=== PATIENT | female | born 1975 | race Caucasian/White ===

== ENCOUNTER → 2019-07-10 09:54 | Outpatient (BNVA) | payer MEDICARE, SELFPAY | PROVIDERS: Family Provider Nurse Practitioner Family; PCP Nurse Practitioner Family; Visit Provider Nurse Practitioner | DX: J22 Unspecified acute lower respiratory infection (principal) | CPT/HCPCS: 71046 ==

== ENCOUNTER → 2019-08-09 10:51 | Outpatient (BNVA) | payer MEDICARE, SELFPAY | PROVIDERS: Family Provider Nurse Practitioner Family; PCP Nurse Practitioner Family; Visit Provider Nurse Practitioner | DX: F41.1 Generalized anxiety disorder (principal); F41.0 Panic disorder [episodic paroxysmal anxiety]; F43.12 Post-traumatic stress disorder, chronic | CPT/HCPCS: 99214 ==

== ENCOUNTER → 2019-08-28 10:00 | Outpatient (BNVA) | payer MEDICARE, SELFPAY | PROVIDERS: Family Provider Nurse Practitioner Family; PCP Nurse Practitioner Family; Visit Provider Obstetrics & Gynecology | DX: Z79.899 Other long term (current) drug therapy (principal); N83.209 Unspecified ovarian cyst, unspecified side | CPT/HCPCS: 76830; 80053; 85025 ==

== ENCOUNTER → 2019-08-29 11:33 | Outpatient (BNVA) | payer MEDICARE, SELFPAY | PROVIDERS: Family Provider Nurse Practitioner Family; PCP Nurse Practitioner Family; Visit Provider Nurse Practitioner Family | DX: R20.2 Paresthesia of skin (principal); E53.8 Deficiency of other specified B group vitamins; D64.9 Anemia, unspecified; E55.9 Vitamin D deficiency, unspecified; E87.6 Hypokalemia | CPT/HCPCS: 82607; 83735 ==

== ENCOUNTER 2019-08-31 11:14 | Emergency (ER) | payer MEDICARE, SELFPAY ==
[2019-08-31 11:35] VITALS: BP 114/68; PULSE 82; RESP 16; TEMP 36.6; O2SAT 97; BMI 23.8
--- NOTE | 2019-08-31 11:44 | ED_ITS ---
Entered by Arleth Ball, acting as scribe for Pelon Childress DO Documented by User: Tara Leija DO 08/31/19 14:05 HPI - Abdominal Pain General: Chief Complaint: Abdominal Pain Stated Complaint: sent by dr. Marques Seen by Provider: 08/31/19 11:43 PFS ED PFSH: Medical History Arthritis of both knees Bilateral ovarian cysts Cervical disc disorder with myelopathy of mid-cervical region COPD (chronic obstructive pulmonary disease) Essential hypertension, benign Fibromyalgia Generalized anxiety disorder Idiopathic thrombocytopenia Panic disorder [episodic paroxysmal anxiety] Post-traumatic stress disorder, chronic Restless leg Sjogren's syndrome with lung involvement Thoracic degenerative disc disease Vitamin B12 deficiency Vitamin D deficiency Social History Smoking and tobacco status: current every day smoker cigarettes Packs smoked per day: 1 Quit status (tobacco): not considering quitting Second hand smoke exposure: Yes Smoking risk assessment/counseling performed?: Yes Tobacco counseling given: counseling >3 minutes Alcohol intake: never Desire information about alcohol rehabilitation?: No Counseling given: No Desire information about substance/drug rehabilitation?: No Counseling given: No Course Vital Signs: Vital signs: Vital Signs Temperature 97.9 F 08/31/19 11:35 Pulse Rate 84 08/31/19 14:27 Respiratory Rate 16 08/31/19 14:27 Blood Pressure 132/77 08/31/19 14:27 Pulse Oximetry 98 08/31/19 14:27 MDM - Abdominal Pain MDM Narrative: Medical decision making narrative: 1200pm: I accepted this pt from Dr Childress, pt has a low mag and K, which are being replaced here. I will have her take some magnesium supplement and have her continue her potassium supplement. She pam lneed her labs drawn in 1 week. Pt feels better and is tolerating pos well. Medical Records: Attestation: I reviewed the patient's medical records. Lab Data: Attestation: I reviewed the patient's lab results. Labs: Lab Results 08/31/19 08/31/19 08/31/19 Range/Units 11:55 12:03 12:03 WBC 10.1 H (4.0-10.0) 10^3/ uL RBC 4.08 L (4.1-5.3) 10^6/u L Hgb 12.4 (11.5-15.3) g/dL Hct 38.2 (37.0-47.0) % MCV 93.6 (81-99) fL MCH 30.4 (28.0-34.0) pg MCHC 32.5 (30.0-36.0) g/dL RDW 14.6 (12.1-15.1) % Plt Count 375 (130-400) 10^3/c mm MPV 10.6 H (7.4-10.4) fL Neut % (Auto) 32.0 % Lymph % (Auto) 54.1 % [place] % (Auto) 9.2 % Eos % (Auto) 3.5 % Baso % (Auto) 0.9 % Neut # (Auto) 3.2 (1.8-7.7) 10^3/u L Lymph # (Auto) 5.5 H (0.8-4.8) 10^3/u L [place] # (Auto) 0.9 (0.2-0.9) 10^3/u L Eos # (Auto) 0.4 (0.0-0.8) 10^3/u L Baso # (Auto) 0.1 (0.0-0.1) 10^3/u L Nucleated RBC % (a uto) 0 % Nucleated RBCs # 0.0 /100WBC Sodium 140 (136-145) mmol/L Potassium 3.4 L (3.5-5.1) mmol/L Chloride 101 (98-107) mmol/L Carbon Dioxide 25 (22-29) mmol/L Anion Gap 17.4 (5-19) BUN 8 (6-20) mg/dL Creatinine 0.9 (0.5-0.9) mg/dL GFR Calculation 68.7 L (90-130) mL/min Glucose 80 (65-115) mg/dL Calcium 9.0 (8.5-10.5) mg/dL Magnesium 0.9 L (1.7-2.3) mg/dL Total Bilirubin 0.3 (0.15-1.2) mg/dL AST 16 (0-32) U/L ALT 19 (0-33) U/L Alkaline Phosphata se 74 (35-105) IU/L Total Protein 6.8 (6.6-8.7) g/dL Albumin 4.3 (3.5-5.2) g/dL Globulin 2.5 (1.3-4.6) g/dL Lipase 39 (13-60) U/L Urine Color Straw (Yellow) Urine Appearance Clear (CLEAR) Urine pH 5.0 (5-7) Ur Specific Gravit y 1.005 (1.005-1.030) Urine Protein Neg (Negative) Urine Glucose (UA) Norm (Normal) Urine Ketones Negative (Negative) Urine Blood Neg (Negative) Urine Nitrate Negative (Negative) Urine Bilirubin Neg (NEGATIVE) Urine Urobilinogen Norm (Negative) mg/dL Ur Leukocyte Nadia ase Negative (Negative) Discharge Plan Discharge Patient Disposition: Home, Self-Care Clinical Impression: Hypomagnesemia, Acute hypokalemia, Diarrhea with dehydration Condition: Stable Prescriptions: No Action Narcan 4 mg/actuation spray,non-aerosol INTRANASAL RF: 0 albuterol sulfate 90 mcg/actuation HFA aerosol inhaler INHALATION RF: 0 Flovent HFA 110 mcg/actuation HFA aerosol inhaler INHALATION RF: 0 cevimeline 30 mg capsule 30 mg PO RF: 0 leflunomide 20 mg tablet PO DAILY RF: 0 norethindrone (contraceptive) 0.35 mg tablet PO DAILY RF: 0 pantoprazole 40 mg tablet,delayed release (DR/EC) PO DAILY RF: 0 pregabalin 150 mg capsule 150 mg PO DAILY RF: 0 pregabalin 200 mg capsule 200 mg PO .at bed RF: 0 lidocaine HCl [Xylocaine] 10 mg/mL (1 %) solution 2 ml IM ONCE Qty: 1 RF: 0 ceftriaxone 1 gram recon soln 1 gm IM ONCE Qty: 1 RF: 0 dexamethasone sodium phosphate 10 mg/mL solution 10 mg IM ONCE Qty: 1 RF: 0 betamethasone dipropionate 0.05 % cream 1 applic TOPICAL BID PRN (Reason: skin irritation) 30 Days Qty: 15 RF: 0 prazosin 1 mg capsule 1 mg PO .HS Qty: 30 RF: 1 clonazepam 0.5 mg tablet 0.5 mg PO TID PRN (Reason: anxiety) Qty: 90 RF: 1 potassium chloride 20 mEq tablet extended release 20 meq PO BID 30 Days Qty: 60 RF: 0 folic acid 1 mg tablet 1 mg PO DAILY Qty: 1 RF: 1 cevimeline [Evoxac] 30 mg capsule 1 cap PO TID Qty: 90 RF: 5 hydroxychloroquine 200 mg tablet 200 mg PO BID Qty: 60 RF: 5 ropinirole 0.25 mg tablet 0.75 mg PO .at bedtime Qty: 90 RF: 2 cyanocobalamin (vitamin B-12) 1,000 mcg/mL solution 1,000 mcg IM .weekly Qty: 4 RF: 2 Discharge Orders: Discharge Order (Routine); Ordered 08/31/19 Ordered By: Tara Leija Referrals: Chilo Ovalles, PROFESSOR OF ENGLISH [Primary Care Provider] - Discharge Diet: Advance as tolerated and Soft Mechanical Discharge Activity: Resume usual activity Patient Instructions: Diarrhea - Adult, Hypokalemia (ED), Hypomagnesemia (ED) Activity Restrictions/Additional Instructions: You need to get a CMP and Magnesium and Phosphorous level drawn in 1 week, results to your pcp. You should return if worse, any problem, not getting better. Drink plenty of fluids Discharge Date/Time: 08/31/19 14:28 Sign Out Sign Out Data: Patient Sign Out occurred on 08/31/19 at 12:13. Patient's care was discussed, and care was transferred from Pelon Childress DO to Tara Davis DO. Sign Out Comment: Awaiting labs Last updated by Pelon Childress DO at 08/31/19 12:07 Coding Level of Care Code ED Telephone Surveyor for Chg Fwd Exam Comprehensive Documented by User: Pelon Childress DO 09/01/19 06:02 HPI - Abdominal Pain General: Chief Complaint: Abdominal Pain Stated Complaint: sent by dr. Marques Seen by Provider: 08/31/19 11:43 Source: patient and RN notes reviewed Mode of arrival: ambulatory Limitations: no limitations History of Present Illness: HPI narrative: 44 yo female presents to ED with c omplaints of abdominal pain, nausea, vomiting and diarrhea (watery). She said this began yesterday. She said her PCP (JIM Ovalles) sent her to the ER due to her potassium and magnesium being low. She denies fever. She has been on levaquin due to a cough; the cough is improving. She said she went to doc yesterday because her face was tingly. MD elicited complaint: abdominal pain Pertinent past history: other (low magnesium, low potassium) Onset (ago): day(s) (1) Pain Consistency: intermittent Location: Diffuse Severity: mild Quality: cramping Radiation: none Migration to: no migration Exacerbating factors: bowel movement and vomiting Relieving factors: nothing Context: recent antibiotic use Associated Symptoms: Reports change in bowel habits and GI cramping; Denies chills, dysuria, fever(s), hematuria and syncope Review of Systems Const: Denies: fever, chills, body aches, fatigue, malaise or night sweats Eyes: Denies: change in vision or blurry vision ENMT: Denies: throat pain, oral sores/lesions, dental pain, nasal discharge or nasal congestion Card: Denies: chest pain, palpitations, irregular heart rhythm, edema, syncope, shortness of breath on exertion, shortness of breath when lying down or leg pain with exertion Resp: Denies: shortness of breath, productive cough, non-productive cough or wheezing GI: Reports: cramping and change in bowel habits : Denies: flank pain, painful urination, urinary frequency, urinary urgency, urinary incontinence or blood in urine Musc: Denies: neck pain, back pain, extremity pain, extremity swelling, joint pain or joint swelling Skin/Breast: Denies: rash, itching or redness Neuro: Denies: headache, numbness in extremities, weakness in extremities, changes in sensation, lack of coordination, difficulty walking, frequent falls, dizziness, vertigo or confusion Psych: Denies: anxiety, depression, loss of interest, visual hallucinations, auditory hallucinations, suicidal ideation or homicidal ideation Endo: Denies: excessive urination, excessive thirst, tired all the time or cold intolerance Víctor/Lymph: Denies: easy bruising, easy bleeding, petechiae, enlarged lymph nodes or tender lymph nodes PFSH ED PFSH: Medical History Arthritis of both knees Bilateral ovarian cysts Cervical disc disorder with myelopathy of mid-cervical region COPD (chronic obstructive pulmonary disease) Essential hypertension, benign Fibromyalgia Generalized anxiety disorder Idiopathic thrombocytopenia Panic disorder [episodic paroxysmal anxiety] Post-traumatic stress disorder, chronic Restless leg Sjogren's syndrome with lung involvement Thoracic degenerative disc disease Vitamin B12 deficiency Vitamin D deficiency Social History Smoking and tobacco status: current every day smoker cigarettes Packs smoked per day: 1 Quit status (tobacco): not considering quitting Second hand smoke exposure: Yes Smoking risk assessment/counseling performed?: Yes Tobacco counseling given: counseling >3 minutes Alcohol intake: never Desire information about alcohol rehabilitation?: No Counseling given: No Desire information about substance/drug rehabilitation?: No Counseling given: No Physical Exam Const: COMMON NORMALS: average body habitus, oriented x3 and alert GENERAL APPEARANCE: cooperative, comfortable, well kempt and well developed NUTRITIONAL APPEARANCE: obese ORIENTATION/CONSCIOUSNESS: Yes awake, Yes oriented to person and Yes oriented to place HENMT: COMMON NORMALS: normocephalic, head/scalp atraumatic, EAC's normal, TM's normal bilaterally, external nose normal, moist oral mucous membranes and oropharynx normal HEAD & SCALP: normocephalic and atraumatic NOSE: external nose normal EXTERNAL AUDITORY CANAL: EAC's normal TYMPANIC MEMBRANE: TM's normal bilaterally MOUTH: oral and palatal mucosa normal, lip normal and tongue normal THROAT: posterior oropharynx normal and tonsils normal Eye: COMMON NORMALS: PERRL, EOMs intact bilaterally, conjunctivae normal and no scleral icterus CONJUNCTIVA: Yes conjunctivae normal PUPIL: Yes PERRL Neck/C-Spine: COMMON NORMALS: full ROM, no lymphadenopathy, supple, no meningeal signs and thyroid normal THYROID: thyroid normal and asymmetrical Lymph: LYMPHATIC: no lymphadenopathy noted Resp: COMMON NORMALS: normal respiratory effort, no retractions, no use of accessory muscles and clear to auscultation bilaterally AUSCULTATION: clear to auscultation bilaterally Cardio: COMMON NORMALS: regular rate and regular rhythm RATE: regular rate RHYTHM: regular rhythm HEART SOUNDS: no murmurs GI: COMMON NORMALS: normal to inspection, nondistended, normoactive bowel sounds, soft to palpation and no hepatosplenomegaly PALPATION: Yes soft and Yes no hepatosplenomegaly : COMMON NORMALS: Yes no CVA tenderness BLADDER/KIDNEY EXAM: Yes no CVA tenderness Back/Pelvis: COMMON NORMALS: no CVA tenderness LUMBAR SPINE/LOWER BACK: Yes normal to inspection Extremity: COMMON NORMALS: no clubbing, cyanosis or edema, no calf tenderness and no pedal edema Neuro: COMMON NORMALS: oriented x3 SENSORIUM/ORIENTATION: Yes alert, Yes oriented to person and Yes oriented to place MENINGEAL SIGNS: Yes no meningeal signs Psych: APPEARANCE: Yes well kempt Skin: COMMON NORMALS: no rashes or lesions noted and skin turgor normal GENERAL SKIN EXAM: no rashes or lesions noted and turgor normal Course ED course: care transferred to Dr. Leija at change of shift. Vital Signs: Vital signs: Vital Signs Temperature 97.9 F 08/31/19 11:35 Pulse Rate 84 08/31/19 14:27 Respiratory Rate 16 08/31/19 14:27 Blood Pressure 132/77 08/31/19 14:27 Pulse Oximetry 98 08/31/19 14:27 MDM - Abdominal Pain Lab Data: Attestation: I reviewed the patient's lab results. Labs: Lab Results 08/31/19 08/31/19 08/31/19 Range/Units 11:55 12:03 12:03 WBC 10.1 H (4.0-10.0) 10^3/ uL RBC 4.08 L (4.1-5.3) 10^6/u L Hgb 12.4 (11.5-15.3) g/dL Hct 38.2 (37.0-47.0) % MCV 93.6 (81-99) fL MCH 30.4 (28.0-34.0) pg MCHC 32.5 (30.0-36.0) g/dL RDW 14.6 (12.1-15.1) % Plt Count 375 (130-400) 10^3/c mm MPV 10.6 H (7.4-10.4) fL Neut % (Auto) 32.0 % Lymph % (Auto) 54.1 % [place] % (Auto) 9.2 % Eos % (Auto) 3.5 % Baso % (Auto) 0.9 % Neut # (Auto) 3.2 (1.8-7.7) 10^3/u L Lymph # (Auto) 5.5 H (0.8-4.8) 10^3/u L [place] # (Auto) 0.9 (0.2-0.9) 10^3/u L Eos # (Auto) 0.4 (0.0-0.8) 10^3/u L Baso # (Auto) 0.1 (0.0-0.1) 10^3/u L Nucleated RBC % (a uto) 0 % Nucleated RBCs # 0.0 /100WBC Sodium 140 (136-145) mmol/L Potassium 3.4 L (3.5-5.1) mmol/L Chloride 101 (98-107) mmol/L Carbon Dioxide 25 (22-29) mmol/L Anion Gap 17.4 (5-19) BUN 8 (6-20) mg/dL Creatinine 0.9 (0.5-0.9) mg/dL GFR Calculation 68.7 L (90-130) mL/min Glucose 80 (65-115) mg/dL Calcium 9.0 (8.5-10.5) mg/dL Magnesium 0.9 L (1.7-2.3) mg/dL Total Bilirubin 0.3 (0.15-1.2) mg/dL AST 16 (0-32) U/L ALT 19 (0-33) U/L Alkaline Phosphata se 74 (35-105) IU/L Total Protein 6.8 (6.6-8.7) g/dL Albumin 4.3 (3.5-5.2) g/dL Globulin 2.5 (1.3-4.6) g/dL Lipase 39 (13-60) U/L Urine Color Straw (Yellow) Urine Appearance Clear (CLEAR) Urine pH 5.0 (5-7) Ur Specific Gravit y 1.005 (1.005-1.030) Urine Protein Neg (Negative) Urine Glucose (UA) Norm (Normal) Urine Ketones Negative (Negative) Urine Blood Neg (Negative) Urine Nitrate Negative (Negative) Urine Bilirubin Neg (NEGATIVE) Urine Urobilinogen Norm (Negative) mg/dL Ur Leukocyte Nadia ase Negative (Negative) Discharge Plan Discharge Patient Disposition: Home, Self-Care Clinical Impression: Hypomagnesemia, Acute hypokalemia, Diarrhea with dehydration Condition: Stable Prescriptions: No Action Narcan 4 mg/actuation spray,non-aerosol INTRANASAL RF: 0 albuterol sulfate 90 mcg/actuation HFA aerosol inhaler INHALATION RF: 0 Flovent HFA 110 mcg/actuation HFA aerosol inhaler INHALATION RF: 0 cevimeline 30 mg capsule 30 mg PO RF: 0 leflunomide 20 mg tablet PO DAILY RF: 0 norethindrone (contraceptive) 0.35 mg tablet PO DAILY RF: 0 pantoprazole 40 mg tablet,delayed release (DR/EC) PO DAILY RF: 0 pregabalin 150 mg capsule 150 mg PO DAILY RF: 0 pregabalin 200 mg capsule 200 mg PO .at bed RF: 0 lidocaine HCl [Xylocaine] 10 mg/mL (1 %) solution 2 ml IM ONCE Qty: 1 RF: 0 ceftriaxone 1 gram recon soln 1 gm IM ONCE Qty: 1 RF: 0 dexamethasone sodium phosphate 10 mg/mL solution 10 mg IM ONCE Qty: 1 RF: 0 betamethasone dipropionate 0.05 % cream 1 applic TOPICAL BID PRN (Reason: skin irritation) 30 Days Qty: 15 RF: 0 prazosin 1 mg capsule 1 mg PO .HS Qty: 30 RF: 1 clonazepam 0.5 mg tablet 0.5 mg PO TID PRN (Reason: anxiety) Qty: 90 RF: 1 potassium chloride 20 mEq tablet extended release 20 meq PO BID 30 Days Qty: 60 RF: 0 folic acid 1 mg tablet 1 mg PO DAILY Qty: 1 RF: 1 cevimeline [Evoxac] 30 mg capsule 1 cap PO TID Qty: 90 RF: 5 hydroxychloroquine 200 mg tablet 200 mg PO BID Qty: 60 RF: 5 ropinirole 0.25 mg tablet 0.75 mg PO .at bedtime Qty: 90 RF: 2 cyanocobalamin (vitamin B-12) 1,000 mcg/mL solution 1,000 mcg IM .weekly Qty: 4 RF: 2 Discharge Orders: Discharge Order (Routine); Ordered 08/31/19 Ordered By: Tara Leija Referrals: Chilo Ovalles, PROFESSOR OF ENGLISH [Primary Care Provider] - Discharge Diet: Advance as tolerated and Soft Mechanical Discharge Activity: Resume usual activity Patient Instructions: Diarrhea - Adult, Hypokalemia (ED), Hypomagnesemia (ED) Activity Restrictions/Additional Instructions: You need to get a CMP and Magnesium and Phosphorous level drawn in 1 week, results to your pcp. You should return if worse, any problem, not getting better. Drink plenty of fluids Discharge Date/Time: 08/31/19 14:28 Sign Out Sign Out Data: Patient Sign Out occurred on 08/31/19 at 12:13. Patient's care was discussed, a nd care was transferred from Pelon Childress DO to Tara Davis DO. Sign Out Comment: Awaiting labs Last updated by Pelon Childress DO at 08/31/19 12:07 Coding Level of Care Code ED Telephone Surveyor for Chg Fwd Exam Comprehensive The documentation recorded by the Quinn hardin Valerie R, accurately reflects the service I personally performed and the decisions made by me, Pelon Childrses DO Aug 31, 2019 11:14
[2019-08-31] MEDS: magnesium oxide 400 mg tablet 800 MG PO (12:00)
[2019-08-31] MEDS: sodium chloride 0.9% 1,000 ML 999 ML IV (12:00)
[2019-08-31 12:05] LABS: Add Urine Microscopic? NO
[2019-08-31] MEDS: potassium chloride oral liq 20 mEq/15 mL UDC 60 MEQ PO (12:08)
[2019-08-31 12:10] LABS: Basophils # 0.1 10^3/uL (0.0-0.1); Basophils % 0.9 %; Eosinophils # 0.4 10^3/uL (0.0-0.8); Eosinophils % 3.5 %; Hematocrit 38.2 % (37.0-47.0); Hemoglobin 12.4 g/dL (11.5-15.3); Lymphocytes # 5.5 10^3/uL (0.8-4.8); Lymphocytes % 54.1 %; Mean Corpuscular HGB Conc 32.5 g/dL (30.0-36.0); Mean Corpuscular Hemoglobin 30.4 pg (28.0-34.0); Mean Corpuscular Volume 93.6 fL (81-99); Mean Platelet Volume 10.6 fL (7.4-10.4); Monocytes # 0.9 10^3/uL (0.2-0.9); Monocytes % 9.2 %; Neutrophils # 3.2 10^3/uL (1.8-7.7); Nucleated Red Blood Cells % 0 %; Platelet Count 375 10^3/cmm (130-400); Red Blood Count 4.08 10^6/uL (4.1-5.3); Red Cell Distribution Width 14.6 % (12.1-15.1); White Blood Count 10.1 10^3/uL (4.0-10.0)
[2019-08-31 12:22] LABS: Blood Urine Neg (Negative); Glucose Urine UA Norm (Normal); Ketones Urine Negative (Negative); Nitrate Urine Negative (Negative); Protein Urine Neg (Negative); Specific Gravity, Urine 1.005 (1.005-1.030); Urine Appearance Clear (CLEAR); Urine Color Straw (Yellow)
[2019-08-31 12:23] LABS: Bilirubin Urine Neg (NEGATIVE); Leukocyte Esterase Urine Negative (Negative); Urobilinogen Urine Norm (Negative)
[2019-08-31 12:25] LABS: Alanine Aminotransferase 19 U/L (0-33); Albumin Level 4.3 g/dL (3.5-5.2); Alkaline Phosphatase 74 IU/L (35-105); Anion Gap 17.4 (5-19); Aspartate Amino Transferase 16 U/L (0-32); Blood Urea Nitrogen 8 mg/dL (6-20); Carbon Dioxide 25 mmol/L (22-29); Chloride 101 mmol/L (98-107); Globulin 2.5 g/dL (1.3-4.6); Glomerular Filtration Rate 68.7 mL/min (90-130); Glucose 80 mg/dL (65-115); Lipase 39 U/L (13-60); Potassium 3.4 mmol/L (3.5-5.1); Sodium 140 mmol/L (136-145); Total Bilirubin 0.3 mg/dL (0.15-1.2); Total Protein 6.8 g/dL (6.6-8.7)
[2019-08-31 12:33] LABS: Magnesium 0.9 mg/dL (1.7-2.3)
[2019-08-31 12:35] LABS: Slide Review Slide Review Perform
[2019-08-31 14:27] VITALS: BP 132/77; PULSE 84; RESP 16; O2SAT 98
== END 2019-08-31 14:28 | disposition home or self-care (01) ==
PROVIDERS: Family Medicine; Emergency Provider Emergency Medicine; Family Provider Nurse Practitioner Family; PCP Nurse Practitioner Family
DX: E83.42 Hypomagnesemia (principal); E87.6 Hypokalemia; R19.7 Diarrhea, unspecified; E86.0 Dehydration; J44.9 Chronic obstructive pulmonary disease, unspecified; I10 Essential (primary) hypertension; M79.7 Fibromyalgia; F43.12 Post-traumatic stress disorder, chronic; M35.00 Sjogren syndrome, unspecified; F17.210 Nicotine dependence, cigarettes, uncomplicated
CPT/HCPCS: 12345; 36415; 80053; 81003; 83690; 83735; 85025; 96360; 99282; 99283; A9270; J7030

== ENCOUNTER → 2019-09-03 12:09 | Outpatient (BNVA) | payer MEDICARE, SELFPAY | PROVIDERS: Family Provider Nurse Practitioner Family; PCP Nurse Practitioner Family; Visit Provider Nurse Practitioner Family | DX: D64.9 Anemia, unspecified (principal); E87.6 Hypokalemia; E83.42 Hypomagnesemia | CPT/HCPCS: 80053; 82306; 82746; 83735; 85025 ==

== ENCOUNTER → 2019-09-06 11:59 | Outpatient (BNVA) | payer MEDICARE, SELFPAY | PROVIDERS: Family Provider Nurse Practitioner Family; PCP Nurse Practitioner Family; Visit Provider Nurse Practitioner Family | DX: E83.42 Hypomagnesemia (principal); E87.6 Hypokalemia | CPT/HCPCS: 80053; 83735 ==

== ENCOUNTER → 2019-09-11 12:10 | Outpatient (BNVA) | payer MEDICARE, SELFPAY | PROVIDERS: Family Provider Nurse Practitioner Family; PCP Nurse Practitioner Family; Visit Provider Nurse Practitioner Family | DX: E87.6 Hypokalemia (principal); E83.42 Hypomagnesemia | CPT/HCPCS: 80053; 83735 ==

== ENCOUNTER → 2019-09-13 09:00 | Outpatient (BNVA) | payer MEDICARE, SELFPAY | PROVIDERS: Family Provider Nurse Practitioner Family; PCP Nurse Practitioner Family; Visit Provider Nurse Practitioner Family | DX: E87.6 Hypokalemia (principal); E83.42 Hypomagnesemia; E53.8 Deficiency of other specified B group vitamins; B37.3 Candidiasis of vulva and vagina; K21.9 Gastro-esophageal reflux disease without esophagitis | CPT/HCPCS: 80053; 82607; 83735; 85025 ==

== ENCOUNTER → 2019-09-20 11:41 | Outpatient (BNVA) | payer MEDICARE, SELFPAY | PROVIDERS: Family Provider Nurse Practitioner Family; PCP Nurse Practitioner Family; Visit Provider Nurse Practitioner Family | DX: E83.42 Hypomagnesemia (principal); E87.6 Hypokalemia; I10 Essential (primary) hypertension | CPT/HCPCS: 80053; 83735 ==

== ENCOUNTER → 2019-10-08 12:04 | Outpatient (BNVA) | payer MEDICARE, SELFPAY | PROVIDERS: Family Provider Nurse Practitioner Family; PCP Nurse Practitioner Family; Visit Provider Nurse Practitioner Family | DX: G89.4 Chronic pain syndrome (principal); M35.02 Sjogren syndrome with lung involvement; E87.6 Hypokalemia; E83.42 Hypomagnesemia; G89.29 Other chronic pain | CPT/HCPCS: 83735 ==

== ENCOUNTER → 2019-10-11 09:42 | Outpatient (BNVA) | payer MEDICARE, SELFPAY | PROVIDERS: Family Provider Nurse Practitioner Family; PCP Nurse Practitioner Family; Visit Provider Nurse Practitioner Family | DX: G89.4 Chronic pain syndrome (principal); M35.02 Sjogren syndrome with lung involvement; E87.6 Hypokalemia; E83.42 Hypomagnesemia; G89.29 Other chronic pain | CPT/HCPCS: 80053 ==

== ENCOUNTER → 2019-11-13 10:17 | Outpatient (BNVA) | payer MEDICARE, SELFPAY | PROVIDERS: Family Provider Nurse Practitioner Family; PCP Nurse Practitioner Family; Visit Provider Internal Medicine Rheumatology | DX: M35.02 Sjogren syndrome with lung involvement (principal); M19.90 Unspecified osteoarthritis, unspecified site; F17.210 Nicotine dependence, cigarettes, uncomplicated; Z79.899 Other long term (current) drug therapy; J44.9 Chronic obstructive pulmonary disease, unspecified; M50.30 Other cervical disc degeneration, unspecified cervical region; M48.02 Spinal stenosis, cervical region | CPT/HCPCS: 36415; 80076; 82565; 85025; 85651; 86140; 86431; 99214 ==

== ENCOUNTER → 2020-02-19 13:03 | Outpatient (BNVA) | payer MEDICARE, SELFPAY | PROVIDERS: Family Provider Nurse Practitioner Family; PCP Nurse Practitioner Family; Visit Provider Internal Medicine Rheumatology | DX: M35.00 Sjogren syndrome, unspecified (principal); Z79.899 Other long term (current) drug therapy; M19.90 Unspecified osteoarthritis, unspecified site; M25.551 Pain in right hip; M25.552 Pain in left hip; N83.201 Unspecified ovarian cyst, right side; N83.202 Unspecified ovarian cyst, left side; F17.210 Nicotine dependence, cigarettes, uncomplicated; J44.9 Chronic obstructive pulmonary disease, unspecified; M79.7 Fibromyalgia | CPT/HCPCS: 36415; 80076; 82565; 85025; 85651; 86140; 99214 ==

== ENCOUNTER → 2020-02-21 09:30 | Outpatient (BNVA) | payer MEDICARE, SELFPAY | PROVIDERS: Family Provider Nurse Practitioner Family; PCP Nurse Practitioner Family; Visit Provider Nurse Practitioner | DX: F43.12 Post-traumatic stress disorder, chronic (principal); F41.0 Panic disorder [episodic paroxysmal anxiety]; F41.1 Generalized anxiety disorder | CPT/HCPCS: 99214 ==

== ENCOUNTER → 2020-03-11 09:00 | Outpatient (BNVA) | payer MEDICARE, SELFPAY | PROVIDERS: Family Provider Nurse Practitioner Family; PCP Nurse Practitioner Family; Visit Provider Nurse Practitioner Family | DX: E83.42 Hypomagnesemia (principal) | CPT/HCPCS: 83735 ==

== ENCOUNTER → 2020-04-08 10:34 | Outpatient (BNVA) | payer MEDICARE, SELFPAY | PROVIDERS: Family Provider Nurse Practitioner Family; PCP Nurse Practitioner Family; Visit Provider Nurse Practitioner Family | DX: E53.8 Deficiency of other specified B group vitamins (principal); I10 Essential (primary) hypertension; R53.83 Other fatigue; E83.42 Hypomagnesemia; R32 Unspecified urinary incontinence; M19.90 Unspecified osteoarthritis, unspecified site; Z79.899 Other long term (current) drug therapy | CPT/HCPCS: 80053; 80061; 82306; 82565; 82607; 82746; 83735; 84443; 85025; 85651; 86140 ==

== ENCOUNTER → 2020-04-23 12:03 | Outpatient (BNVA) | payer MEDICARE, SELFPAY | PROVIDERS: Family Provider Nurse Practitioner Family; PCP Nurse Practitioner Family; Visit Provider Nurse Practitioner Family | DX: Z20.828 Contact with and (suspected) exposure to other viral communicable diseases (principal); G43.909 Migraine, unspecified, not intractable, without status migrainosus | CPT/HCPCS: 87400; 87635 ==

== ENCOUNTER → 2020-04-27 16:25 | Outpatient (BNVA) | payer MEDICARE, SELFPAY | PROVIDERS: Family Provider Nurse Practitioner Family; PCP Nurse Practitioner Family; Visit Provider Nurse Practitioner Family | DX: Z11.59 Encounter for screening for other viral diseases (principal); J44.9 Chronic obstructive pulmonary disease, unspecified | CPT/HCPCS: 87635 ==

== ENCOUNTER 2020-05-01 10:15 | Outpatient (CLI) | payer MEDICARE, SELFPAY ==
--- NOTE | 2020-05-01 10:15 | USCV_ITS ---
Latoya Che Age: 44 Gender: F : 1975 Exam Date: 05/01/2020 10:22 Ordering Phys: Jacek Li MD Technologist: Shanon Cardoso Exam Location: [facility] [place] Indication: COPD BP: 111 / 76 HR: 85 Rhythm: Sinus Technical Quality: Fair MEASUREMENTS (Male / Female) Normal Values 2D ECHO LV Diastolic Diameter PLAX 4.0 cm 4.2 - 5.9 / 3.9 - 5.3 cm LV Systolic Diameter PLAX 3.5 cm LV Chamber Size 5.0 cm IVS Diastolic Thickness 1.1 cm 0.6 - 1.0 / 0.6 - 0.9 cm IVS Systolic Thickness 1.1 cm LVPW Diastolic Thickness 1.0 cm 0.6 - 1.0 / 0.6 - 0.9 cm LVPW Systolic Thickness 1.0 cm RV Chamber Size 2.3 cm LVOT Diameter 2.0 cm LV Ejection Fraction 2D Teich 27.6 % LV Ejection Fraction MOD 2C 52.8 % LV Ejection Fraction 2C AL 52.2 % LA Diameter 3.2 cm LA Width 3.1 cm LA Height 5.0 cm RA Width 2.5 cm RA Height 3.7 cm Aorta at Sinotubular Diameter 2.9 cm M-MODE LV Diastolic Diameter MM 5.3 cm 4.2 - 5.9 / 3.9 - 5.3 cm LV Systolic Diameter MM 4.5 cm LV Ejection Fraction MM Teich 32.3 % IVS Diastolic Thickness MM 0.7 cm 0.6 - 1.0 / 0.6 - 0.9 cm IVS Systolic Thickness MM 0.9 cm LVPW Diastolic Thickness MM 0.7 cm 0.6 - 1.0 / 0.6 - 0.9 cm LVPW Systolic Thickness MM 1.2 cm RV Diastolic Diameter MM 1.2 cm Aortic Annulus Diameter 3.2 cm LA Ao Ratio MM 1.0 MV E Point Septal Separation 0.9 cm DOPPLER AV Peak Velocity 115.0 cm/s LVOT Peak Velocity 88.0 cm/s AV Area Cont Eq vti 2.4 cm squared AV Area Cont Eq pk 2.5 cm squared MV Area PHT 9.2 cm squared Mitral E to A Ratio 1.0 MV E' Velocity 36.0 cm/s Mitral E to MV E' Ratio 5.2 Mitral E to LV E' Lateral Ratio 6.1 Mitral E to LV E' Septal Ratio 4.5 TR Peak Velocity 206.7 cm/s TR Peak Gradient 17.1 mmHg TR Mean Velocity 170.2 cm/s TR Mean Gradient 12.1 mmHg TR Velocity Time Integral 61.7 cm TV Peak E Velocity 58.0 cm/s PV Peak Velocity 56.0 cm/s FINDINGS Left Ventricle Normal left ventricular cavity size. Moderately decreased left ventricular systolic function. Left ventricular ejection fraction is estimated at 40 %. Global left ventricular hypokinesis. Right Ventricle The right ventricle is normal in size and function. Right Atrium The right atrium is normal in size. Left Atrium The left atrium is normal in size. Mitral Valve Structurally normal mitral valve without significant stenosis or prolapse. There is no mitral regurgitation. Aortic Valve Mild aortic valve calcification. No aortic valve stenosis. No aortic valve regurgitation. Tricuspid Valve Trace tricuspid valve regurgitation. Pulmonic Valve Structurally normal pulmonic valve without significant stenosis. There is no pulmonic regurgitation. Pericardium Normal pericardium without effusion. Aorta Normal ascending aorta dimension. CONCLUSIONS 1-Normal left ventricular cavity size. Moderately decreased left ventricular systolic function. Left ventricular ejection fraction is estimated at 40 %. Global left ventricular hypokinesis. 2-There is no pericardial effusion. 3-No significant valve abnormalities. 4-No significant change since the prior echocardiogram study of 12/10. Mariia Brantley MD (Electronically Signed) Final Date: 01 May 2020 19:29 S
--- NOTE | 2020-05-01 13:49 | PFTS_ITS ---
Date of Study:05/01/20 Date of Dictation: MECHANICS: Forced vital capacity (FVC) is normal. Forced expiratory volume in one second (FEV1) is reduced. FEV1/FVC is reduced. FLOW VOLUME LOOP: Reduced flow at all lung volumes with scooping. LUNG VOLUMES: Total lung capacity (TLC) is normal. Residual volume (RV) is increased. DIFFUSING CAPACITY FOR CARBON MONOXIDE: Normal. INTERPRETATION: The pulmonary function tests are consistent with moderate airflow obstruction. There is no significant postbronchodilator response. Lung volumes are consistent with air trapping. Gas exchange (DLCO) is normal. MTDD
== END 2020-05-01 10:16 | disposition home or self-care (01) ==
LOC: US 10:17
PROVIDERS: PCP Nurse Practitioner Family; Visit Provider Internal Medicine Critical Care Medicine
DX: I50.21 Acute systolic (congestive) heart failure (principal); J44.9 Chronic obstructive pulmonary disease, unspecified
CPT/HCPCS: 93306; 94060; 94726; 94729

== ENCOUNTER → 2020-05-06 07:47 | Outpatient (BNVA) | payer MEDICARE, SELFPAY | PROVIDERS: PCP Nurse Practitioner Family; Visit Provider Nurse Practitioner | DX: N39.0 Urinary tract infection, site not specified (principal); A49.9 Bacterial infection, unspecified | CPT/HCPCS: 80053; 81003 ==

== ENCOUNTER → 2020-05-07 11:33 | Outpatient (BNVA) | payer MEDICARE, SELFPAY | PROVIDERS: PCP Nurse Practitioner Family; Visit Provider Nurse Practitioner Family | DX: R05 Cough (principal); M54.5 Low back pain | CPT/HCPCS: 71046; 72114 ==

== ENCOUNTER → 2020-06-03 07:42 | Outpatient (BNVA) | payer MEDICARE, SELFPAY | PROVIDERS: PCP Nurse Practitioner Family; Visit Provider Nurse Practitioner | DX: F41.1 Generalized anxiety disorder (principal); F41.0 Panic disorder [episodic paroxysmal anxiety]; F43.12 Post-traumatic stress disorder, chronic | CPT/HCPCS: 99214 ==

== ENCOUNTER → 2020-07-15 15:34 | Outpatient (BNVA) | payer MEDICARE, SELFPAY | PROVIDERS: PCP Nurse Practitioner Family; Visit Provider Internal Medicine Rheumatology | DX: M35.00 Sjogren syndrome, unspecified (principal); Z79.899 Other long term (current) drug therapy; M15.9 Polyosteoarthritis, unspecified; M79.7 Fibromyalgia; J44.9 Chronic obstructive pulmonary disease, unspecified; K21.9 Gastro-esophageal reflux disease without esophagitis; K44.9 Diaphragmatic hernia without obstruction or gangrene; F17.210 Nicotine dependence, cigarettes, uncomplicated | CPT/HCPCS: 99214 ==

== ENCOUNTER → 2020-07-24 11:23 | Outpatient (BNVA) | payer MEDICARE, SELFPAY | PROVIDERS: PCP Nurse Practitioner Family; Referring Provider Nurse Practitioner Family; Visit Provider Specialist | DX: G43.711 Chronic migraine without aura, intractable, with status migrainosus (principal); F17.210 Nicotine dependence, cigarettes, uncomplicated | CPT/HCPCS: 99204 ==

== ENCOUNTER → 2020-07-29 09:10 | Outpatient (BNVA) | payer MEDICARE, SELFPAY | PROVIDERS: PCP Nurse Practitioner Family; Visit Provider Nurse Practitioner | DX: F41.1 Generalized anxiety disorder (principal); F41.0 Panic disorder [episodic paroxysmal anxiety]; F43.12 Post-traumatic stress disorder, chronic | CPT/HCPCS: 99214 ==

== ENCOUNTER → 2020-08-04 11:12 | Outpatient (BNVA) | payer MEDICARE, SELFPAY | PROVIDERS: PCP Nurse Practitioner Family; Visit Provider Nurse Practitioner Family | DX: M35.00 Sjogren syndrome, unspecified (principal); E53.8 Deficiency of other specified B group vitamins; E83.42 Hypomagnesemia; I10 Essential (primary) hypertension; Z79.899 Other long term (current) drug therapy | CPT/HCPCS: 80053; 80076; 82306; 82565; 82607; 82746; 83735; 85025; 85651; 86140 ==

== ENCOUNTER → 2021-03-12 10:32 | Outpatient (BNVA) | payer MEDICARE, SELFPAY | PROVIDERS: PCP Nurse Practitioner Family; Visit Provider Internal Medicine Rheumatology | DX: M19.90 Unspecified osteoarthritis, unspecified site (principal); M35.02 Sjogren syndrome with lung involvement; Z79.899 Other long term (current) drug therapy; I10 Essential (primary) hypertension; E55.9 Vitamin D deficiency, unspecified; E83.42 Hypomagnesemia; E87.6 Hypokalemia | CPT/HCPCS: 80076; 82565; 85025; 86140 ==

== ENCOUNTER → 2021-03-26 09:00 | Outpatient (BNVA) | payer MEDICARE, SELFPAY | PROVIDERS: PCP Nurse Practitioner Family; Visit Provider Internal Medicine Rheumatology | DX: M35.00 Sjogren syndrome, unspecified (principal); Z79.899 Other long term (current) drug therapy; E55.9 Vitamin D deficiency, unspecified; M19.90 Unspecified osteoarthritis, unspecified site; M79.7 Fibromyalgia; F41.8 Other specified anxiety disorders; G25.81 Restless legs syndrome; K21.9 Gastro-esophageal reflux disease without esophagitis; M25.551 Pain in right hip; M25.552 Pain in left hip; J44.9 Chronic obstructive pulmonary disease, unspecified; Z71.89 Other specified counseling | CPT/HCPCS: 99214 ==

== ENCOUNTER → 2021-07-07 13:40 | Outpatient (BNVA) | payer MEDICARE, SELFPAY | PROVIDERS: PCP Nurse Practitioner Family; Visit Provider Nurse Practitioner Family | DX: Z20.822 Contact with and (suspected) exposure to COVID-19 (principal) | CPT/HCPCS: 87635 ==

== ENCOUNTER 2021-07-08 11:24 | Outpatient (CLI) | payer MEDICARE, SELFPAY ==
[2021-07-08 11:41] VITALS: BP 124/84; PULSE 91; RESP 16; TEMP 36.8; O2SAT 95; BMI 23.2
[2021-07-08 12:16] VITALS: BP 115/79; PULSE 89; RESP 16; TEMP 36.8; O2SAT 95
[2021-07-08 13:16] VITALS: BP 106/79; PULSE 84; RESP 18; TEMP 36.7; O2SAT 97
== END 2021-07-08 11:25 | disposition home or self-care (01) ==
LOC: OPS 11:27
PROVIDERS: PCP Nurse Practitioner Family; Visit Provider Nurse Practitioner Family
DX: U07.1 COVID-19 (principal)
CPT/HCPCS: 96365

== ENCOUNTER → 2021-07-16 07:14 | Outpatient (BNVA) | payer MEDICARE, SELFPAY | PROVIDERS: PCP Nurse Practitioner Family; Visit Provider Nurse Practitioner | DX: F43.12 Post-traumatic stress disorder, chronic (principal); F41.0 Panic disorder [episodic paroxysmal anxiety]; F41.1 Generalized anxiety disorder | CPT/HCPCS: 99214 ==

== ENCOUNTER → 2021-08-24 15:49 | Outpatient (BNVA) | payer MEDICARE, SELFPAY | PROVIDERS: PCP Nurse Practitioner Family; Visit Provider Nurse Practitioner Family | DX: D64.9 Anemia, unspecified (principal); Z13.6 Encounter for screening for cardiovascular disorders; I10 Essential (primary) hypertension; M48.062 Spinal stenosis, lumbar region with neurogenic claudication; K21.9 Gastro-esophageal reflux disease without esophagitis; E55.9 Vitamin D deficiency, unspecified; E53.8 Deficiency of other specified B group vitamins; M19.90 Unspecified osteoarthritis, unspecified site; M35.02 Sjogren syndrome with lung involvement; M35.00 Sjogren syndrome, unspecified; Z79.899 Other long term (current) drug therapy | CPT/HCPCS: 80053; 80061; 80076; 81003; 82248; 82306; 82565; 82607; 82728; 83036; 83550; 83735; 83921; 84439; 84443; 85025; 86140 ==

== ENCOUNTER → 2021-11-10 13:35 | Outpatient (BNVA) | payer MEDICARE, SELFPAY | PROVIDERS: PCP Nurse Practitioner Family; Visit Provider Internal Medicine Rheumatology | DX: M35.00 Sjogren syndrome, unspecified (principal); M15.9 Polyosteoarthritis, unspecified; Z79.899 Other long term (current) drug therapy; R11.0 Nausea; K21.9 Gastro-esophageal reflux disease without esophagitis; J44.9 Chronic obstructive pulmonary disease, unspecified; M79.7 Fibromyalgia; Z71.89 Other specified counseling; F17.210 Nicotine dependence, cigarettes, uncomplicated | CPT/HCPCS: 80053; 82306; 85025; 85651; 99214 ==

== ENCOUNTER → 2021-11-13 09:26 | Outpatient (BNVA) | payer MEDICARE, SELFPAY | PROVIDERS: PCP Nurse Practitioner Family; Visit Provider Nurse Practitioner | DX: F43.12 Post-traumatic stress disorder, chronic (principal); F41.0 Panic disorder [episodic paroxysmal anxiety]; F41.1 Generalized anxiety disorder | CPT/HCPCS: 99214 ==

== ENCOUNTER → 2022-01-01 08:46 | Outpatient (BNVA) | payer MEDICARE, SELFPAY | PROVIDERS: PCP Nurse Practitioner Family; Visit Provider Nurse Practitioner Family | DX: L03.90 Cellulitis, unspecified (principal); S99.922A Unspecified injury of left foot, initial encounter; X58.XXXA Exposure to other specified factors, initial encounter | CPT/HCPCS: 73620 ==

== ENCOUNTER 2022-05-26 13:15 | Outpatient (CLI) | payer MEDICARE, SELFPAY ==
[2022-05-26 14:06] LABS: Basophils # 0.1 10^3/uL (0.0-0.1); Basophils % 0.6 %; Eosinophils # 0.4 10^3/uL (0.0-0.8); Eosinophils % 3.1 %; Hematocrit 43.1 % (37.0-47.0); Hemoglobin 14.5 g/dL (11.5-15.3); Lymphocytes # 6.3 10^3/uL (0.8-4.8); Lymphocytes % 50.7 %; Mean Corpuscular HGB Conc 33.6 g/dL (30.0-36.0); Mean Corpuscular Volume 92.1 fl (81-99); Mean Platelet Volume 9.9 fL (7.4-10.4); Monocytes # 0.8 10^3/uL (0.2-0.9); Monocytes % 6.4 %; Neutrophils # 4.84 10^3/uL (1.8-7.7); Nucleated Red Blood Cells % 0 %; Platelet Count 434 10^3/cmm (130-400); Red Blood Count 4.68 10^6/uL (4.1-5.3); Red Cell Distribution Width 14.9 % (12.1-15.1); White Blood Count 12.4 10^3/uL (4.0-10.0)
[2022-05-26 14:31] LABS: Alanine Aminotransferase 18 U/L (0-33); Albumin Level 4.4 g/dL (3.5-5.2); Alkaline Phosphatase 81 U/L (35-105); Aspartate Amino Transferase 17 U/L (0-32); Globulin 2.9 g/dL (1.3-4.6); Glomerular Filtration Rate 90.5 mL/min (90-130); Total Bilirubin 0.3 mg/dL (0.15-1.2); Total Protein 7.3 g/dL (6.6-8.7)
== END 2022-05-26 13:16 | disposition home or self-care (01) ==
PROVIDERS: PCP Family Medicine; Visit Provider Internal Medicine Rheumatology
DX: M19.90 Unspecified osteoarthritis, unspecified site (principal); M35.00 Sjogren syndrome, unspecified; Z79.899 Other long term (current) drug therapy
CPT/HCPCS: 36415; 80076; 82565; 85025; 86140

== ENCOUNTER → 2022-05-31 11:47 | Outpatient (BNVA) | payer MEDICARE, SELFPAY | PROVIDERS: PCP Family Medicine; Visit Provider Family Medicine | DX: E55.9 Vitamin D deficiency, unspecified (principal); M35.00 Sjogren syndrome, unspecified; M25.529 Pain in unspecified elbow; I10 Essential (primary) hypertension; B37.9 Candidiasis, unspecified; Z71.6 Tobacco abuse counseling; M77.10 Lateral epicondylitis, unspecified elbow | CPT/HCPCS: 80053; 80061; 82607; 83735; 84443 ==

== ENCOUNTER → 2022-09-02 11:47 | Outpatient (BNVA) | payer MEDICARE, SELFPAY | PROVIDERS: PCP Family Medicine; Visit Provider Internal Medicine Rheumatology | DX: M35.00 Sjogren syndrome, unspecified (principal); Z79.899 Other long term (current) drug therapy; M19.90 Unspecified osteoarthritis, unspecified site; Z71.89 Other specified counseling; R53.83 Other fatigue; M79.7 Fibromyalgia; N30.00 Acute cystitis without hematuria; K21.9 Gastro-esophageal reflux disease without esophagitis; K44.9 Diaphragmatic hernia without obstruction or gangrene; K22.10 Ulcer of esophagus without bleeding; J44.9 Chronic obstructive pulmonary disease, unspecified; Z72.0 Tobacco use | CPT/HCPCS: 99214 ==

== ENCOUNTER → 2022-12-07 12:03 | Outpatient (BNVA) | payer MEDICARE, MEDICAID, SELFPAY | PROVIDERS: PCP Family Medicine; Visit Provider Internal Medicine Rheumatology | DX: M19.90 Unspecified osteoarthritis, unspecified site (principal); M35.00 Sjogren syndrome, unspecified; Z79.899 Other long term (current) drug therapy; M35.02 Sjogren syndrome with lung involvement | CPT/HCPCS: 80076; 82565; 85025; 86140 ==

== ENCOUNTER → 2022-12-08 10:54 | Outpatient (BNVA) | payer MEDICARE, MEDICAID, SELFPAY | PROVIDERS: PCP Family Medicine; Visit Provider Internal Medicine Rheumatology | DX: M35.00 Sjogren syndrome, unspecified (principal); Z79.899 Other long term (current) drug therapy; M19.90 Unspecified osteoarthritis, unspecified site; Z71.89 Other specified counseling | CPT/HCPCS: 99214 ==

== ENCOUNTER 2022-12-31 15:55 | Outpatient (CLI) | payer MEDICARE, MEDICAID, SELFPAY ==
[2022-12-31] MEDS: iohexol 350 mg/mL 500 mL Btl (per mL) IV (16:20)
--- NOTE | 2022-12-31 16:30 | CTR_ITS ---
PROCEDURE INFORMATION: Exam: CT Neck With Contrast Exam date and time: 12/31/2022 4:10 PM Age: 47 years old Clinical indication: Mass, lump, or swelling in neck; Patient HX: Bilateral neck swelling with hard palpable masses. Bbs placed. PT states it is tender and goes to the back of neck; Additional info: R22.1 - localized swelling, mass and lump, neck, spoke with hayder about changing order to w/ contrast only. Hayder gave a TECHNIQUE: Imaging protocol: Computed tomography of the neck with contrast. Radiation optimization: All CT scans at this facility use at least one of these dose optimization techniques: automated exposure control; mA and/or kV adjustment per patient size (includes targeted exams where dose is matched to clinical indication); or iterative reconstruction. Contrast material: OMNI 350; Contrast volume: 100 ml; Contrast route: INTRAVENOUS (IV); REPORTING DATA: Count of CT and Cardiac NM exams in prior 12 months: This patient has received 0 known CTs and 0 known cardiac nuclear medicine studies in the 12 months prior to the current study. COMPARISON: CT cervical spine w con [id number] 12/14/2018 10:05 AM RADIATION DOSE METRICS: Total DLP (mGy-cm): 142.28 FINDINGS: Mastoid air cells: There is no mastoid effusion detected. Paranasal sinuses: There is mild sinus mucosal disease, with no air-fluid level identified. Pharynx: There is mild symmetric inflammatory enlargement of the tonsillar pillars bilaterally. Lingual tonsils are also prominent. Larynx: Unremarkable. Epiglottis is normal. Prevertebral and retropharyngeal spaces: Unremarkable. Salivary glands: Parotid glands are unremarkable. Submandibular glands are unremarkable. Thyroid: Hypodense nodules are seen in the thyroid gland, largest measuring 7 mm. These are nonspecific. Lymph nodes: See Soft tissues finding. Trachea: Visualized trachea is unremarkable. Lungs: Emphysema is noted at the lung apices. Bones/joints: Unremarkable. No acute fracture. Soft tissues: There are small to mildly prominent lymph nodes scattered throughout the neck soft tissues and in the upper mediastinum. The largest lymph node a left jugulodigastric node measuring 2.0 cm in the short axis. CT/CT neck w con* [id number] IMPRESSION: 1. Small to mildly prominent lymph nodes scattered throughout the neck soft tissues and in upper mediastinum, as above, nonspecific. Differential diagnosis would reactive adenopathy, metastatic disease, lymphangitic tumor. 2. Symmetric inflammatory enlargement of the tonsillar pillars bilaterally and prominent lingual tonsils. 3. Small thyroid nodules, nonspecific. COMMENTS: Consistent with the [employer]'s Incidental Findings Committee white paper (J Am Cee Radiol 2015): In patients aged 35 years and older with an incidental thyroid nodule equal to or greater than 1.[address], MRI or extrathyroidal US, further evaluation with dedicated thyroid US is recommended for patients with normal life expectancy and without comorbidities. For smaller nodules without suspicious features, no further evaluation or follow up is recommended.
== END 2022-12-31 15:56 | disposition home or self-care (01) ==
LOC: RAD 15:58
PROVIDERS: PCP Family Medicine; Visit Provider Nurse Practitioner Family
DX: R22.1 Localized swelling, mass and lump, neck (principal); E04.1 Nontoxic single thyroid nodule; J35.1 Hypertrophy of tonsils; R59.9 Enlarged lymph nodes, unspecified
CPT/HCPCS: 70491; Q9967

== ENCOUNTER → 2023-01-05 10:33 | Outpatient (BNVA) | payer MEDICARE, MEDICAID, SELFPAY | PROVIDERS: PCP Family Medicine; Visit Provider Internal Medicine Rheumatology | DX: M35.00 Sjogren syndrome, unspecified (principal); R59.0 Localized enlarged lymph nodes; M19.90 Unspecified osteoarthritis, unspecified site; Z71.89 Other specified counseling; Z79.899 Other long term (current) drug therapy | CPT/HCPCS: 99214 ==

== ENCOUNTER 2023-01-11 07:59 | Oncology outpatient (recurring) (ONCR) | payer MEDICARE, MEDICAID, SELFPAY ==
[2023-01-11 09:21] LABS: Basophils # 0.1 10^3/uL (0.0-0.1); Basophils % 0.7 %; Eosinophils # 0.3 10^3/uL (0.0-0.8); Eosinophils % 2.3 %; Hematocrit 43.6 % (37.0-47.0); Hemoglobin 14.4 g/dL (11.5-15.3); Lymphocytes # 2.4 10^3/uL (0.8-4.8); Mean Corpuscular Hemoglobin 30.6 pg (28.0-34.0); Mean Corpuscular Volume 92.6 fl (81-99); Mean Platelet Volume 9.4 fL (7.4-10.4); Monocytes % 7.5 %; Neutrophils # 8.89 10^3/uL (1.8-7.7); Neutrophils % 70.3 %; Nucleated Red Blood Cells % 0 %; Platelet Count 484 10^3/cmm (130-400); Red Blood Count 4.71 10^6/uL (4.1-5.3); Red Cell Distribution Width 15.1 % (12.1-15.1); White Blood Count 12.7 10^3/uL (4.0-10.0)
[2023-01-11 09:25] LABS: LAB Peripheral Smear Sent for Review
[2023-01-11 09:43] LABS: Alanine Aminotransferase 15 U/L (0-33); Albumin Level 4.3 g/dL (3.5-5.2); Alkaline Phosphatase 85 U/L (35-105); Anion Gap 14.7 (5-19); Aspartate Amino Transferase 17 U/L (0-32); Blood Urea Nitrogen 6 mg/dL (6-20); C Reactive Protein 3.1 mg/L (0.0-4.9); Calcium 9.2 mg/dL (8.5-10.5); Carbon Dioxide 26 mmol/L (22-29); Chloride 104 mmol/L (98-107); Globulin 2.9 g/dL (1.3-4.6); Glomerular Filtration Rate 67.7 mL/min (90-130); Glucose 107 mg/dL (65-115); Lactate Dehydrogenase 147 U/L (135-214); Osmolality Calculated 290 mOsm/kg (285-295); Potassium 3.7 mmol/L (3.5-5.1); Sodium 141 mmol/L (136-145); Total Bilirubin 0.3 mg/dL (0.15-1.2); Total Protein 7.2 g/dL (6.6-8.7)
[2023-01-11 09:50] LABS: Erythrocyte Sedimentation Rate 11 mm/hr (0-15)
== END 2023-01-24 23:59 | disposition home or self-care (01) ==
PROVIDERS: PCP Family Medicine; Visit Provider Internal Medicine Medical Oncology
DX: M35.00 Sjogren syndrome, unspecified (principal); R59.1 Generalized enlarged lymph nodes; F17.210 Nicotine dependence, cigarettes, uncomplicated
CPT/HCPCS: 36415; 80053; 83615; 85025; 85651; 86140; 99205

== ENCOUNTER 2023-01-24 15:21 | Outpatient (CLI) | payer MEDICARE, MEDICAID, SELFPAY ==
[2023-01-24] MEDS: iohexol 350 mg/mL 500 mL Btl (per mL) PO (16:17)
--- NOTE | 2023-01-24 16:30 | CTR_ITS ---
PROCEDURE INFORMATION: Exam: CT Chest With Contrast; Diagnostic Exam date and time: 01/24/2023 4:50 PM Age: 47 years old Clinical indication: Other: Lymphadenopathy; Prior surgery; Surgery date: 6+ months; Surgery type: Hyst, gb, spleen, appy TECHNIQUE: Imaging protocol: Diagnostic computed tomography of the chest with contrast. Radiation optimization: All CT scans at this facility use at least one of these dose optimization techniques: automated exposure control; mA and/or kV adjustment per patient size (includes targeted exams where dose is matched to clinical indication); or iterative reconstruction. Contrast material: OMNI 350; Contrast volume: 95 ml; Contrast route: INTRAVENOUS (IV); REPORTING DATA: Count of CT and Cardiac NM exams in prior 12 months: This patient has received [address] and 0 known cardiac nuclear medicine studies in the 12 months prior to the current study. COMPARISON: 1. CR XR chest 2V* [id number] 05/07/2020 11:[address] neck w con* [id number] 12/31/2022 4:10 PM RADIATION DOSE METRICS: Total DLP (mGy-cm): 640.27 FINDINGS: Lungs: Mild upper lung predominant centrilobular emphysematous changes. No consolidation. Pleural spaces: Unremarkable. No pneumothorax. No pleural effusion. Heart: Unremarkable. No cardiomegaly. No pericardial effusion. Lymph nodes: Unremarkable. No enlarged lymph nodes. Vasculature: Mild systemic atherosclerotic calcification without aortic aneurysm. Bones/joints: Unremarkable. No acute fracture. Soft tissues: Unremarkable. PROCEDURE INFORMATION: Exam: CT Abdomen And Pelvis With Contrast Exam date and time: 01/24/2023 4:50 PM Age: 47 years old Clinical indication: Other: Lymphadenopathy; Prior surgery; Surgery date: 6+ months; Surgery type: Hyst, gb, spleen, appy TECHNIQUE: Imaging protocol: Computed tomography of the abdomen and pelvis with contrast. Radiation optimization: All CT scans at this facility use at least one of these dose optimization techniques: automated exposure control; mA and/or kV adjustment per patient size (includes targeted exams where dose is matched to clinical indication); or iterative reconstruction. Contrast material: OMNI 350; Contrast volume: 95 ml; Contrast route: INTRAVENOUS (IV); REPORTING DATA: Count of CT and Cardiac NM exams in prior 12 months: This patient has received [address] and 0 known cardiac nuclear medicine studies in the 12 months prior to the current study. COMPARISON: CT abdomen pelvis w con* [id number] 09/29/2018 9:44 AM RADIATION DOSE METRICS: Total DLP (mGy-cm): 640.27 FINDINGS: Liver: No focal lesions. Gallbladder and bile ducts: Prior cholecystectomy without biliary ductal dilatation. Pancreas: Normal without ductal dilatation. Spleen: Prior splenectomy. Adrenal glands: Normal. No mass. Kidneys and ureters: Normal. No hydronephrosis. Stomach and bowel: Unremarkable. No obstruction. No evidence of mucosal thickening. Appendix: Not visualized. Intraperitoneal space: No free air, free fluid, or well-organized fluid collection. Vasculature: Mild systemic atherosclerotic calcification without abdominal aortic aneurysm. Relative prominence of the right and middle hepatic veins with attenuation of the left hepatic vein, stable. Stable 2.6 cm aneurysmal dilatation of the proximal portal vein. Lymph nodes: Unremarkable. No enlarged lymph nodes. Urinary bladder: Urinary bladder is unremarkable. Reproductive: The uterus is surgically absent. Similar right adnexal cystic structure measures approximately 6.5 x 3.2 x 6.0 cm. Bones/joints: Unremarkable. No acute fracture. Soft tissues: Unremarkable. CT/CT chest abdpel w/*[id number] IMPRESSION: 1. No acute findings or lymphadenopathy. 2. Emphysema. IMPRESSION: 1. No acute findings or lymphadenopathy. 2. Chronic and incidental findings as above, to include multiple stable postsurgical changes and proximal portal vein aneurysm.
[2023-01-24] MEDS: iohexol 350 mg/mL 500 mL Btl (per mL) IV (16:52)
== END 2023-01-24 15:22 | disposition home or self-care (01) ==
PROVIDERS: PCP Family Medicine; Visit Provider Internal Medicine Medical Oncology
DX: R59.1 Generalized enlarged lymph nodes (principal)
CPT/HCPCS: 71260; 74177; Q9967

== ENCOUNTER → 2023-03-10 09:49 | Outpatient (BNVA) | payer MEDICARE, SELFPAY | PROVIDERS: PCP Family Medicine; Visit Provider Internal Medicine Rheumatology | DX: Z79.899 Other long term (current) drug therapy (principal); M19.90 Unspecified osteoarthritis, unspecified site; M35.00 Sjogren syndrome, unspecified; Z71.89 Other specified counseling; R59.0 Localized enlarged lymph nodes | CPT/HCPCS: 99214 ==

== ENCOUNTER 2023-03-21 11:07 | Outpatient (CLI) | payer MEDICARE, SELFPAY ==
[2023-03-24 04:29] LABS: ANCA Screen NEGATIVE (NEGATIVE)
== END 2023-03-21 11:08 | disposition home or self-care (01) ==
PROVIDERS: PCP Family Medicine; Visit Provider Internal Medicine Rheumatology
DX: J34.89 Other specified disorders of nose and nasal sinuses (principal)
CPT/HCPCS: 36415; 86036

== ENCOUNTER 2023-05-05 13:07 | Oncology outpatient (recurring) (ONCR) | payer MEDICARE, SELFPAY ==
[2023-05-05 14:47] LABS: Basophils # 0.1 10^3/uL (0.0-0.1); Basophils % 0.9 %; Eosinophils # 0.3 10^3/uL (0.0-0.8); Eosinophils % 3.6 %; Hematocrit 42.6 % (36-47); Lymphocytes # 2.8 10^3/uL (0.8-4.8); Lymphocytes % 30.6 %; Mean Corpuscular HGB Conc 33.6 g/dL (30-55); Mean Corpuscular Hemoglobin 30.9 pg (27-33); Mean Platelet Volume 9.4 fL (7.4-10.4); Monocytes # 0.6 10^3/uL (0.2-0.9); Monocytes % 6.3 %; Neutrophils # 5.33 10^3/uL (1.8-7.7); Neutrophils % 58.4 %; Nucleated Red Blood Cells % 0 %; Platelet Count 428 10^3/cmm (157-399); Red Blood Count 4.63 10^6/uL (3.85-5.65); Red Cell Distribution Width 15.2 % (12.1-15.1); White Blood Count 9.14 10^3/uL (3.29-11.43)
[2023-05-05 15:03] LABS: Alanine Aminotransferase 18 U/L (0-33); Albumin Level 4.6 g/dL (3.5-5.2); Alkaline Phosphatase 77 U/L (35-105); Anion Gap 15.9 (5-19); Aspartate Amino Transferase 17 U/L (0-32); Blood Urea Nitrogen 6 mg/dL (6-20); C Reactive Protein 4.8 mg/L (0.0-4.9); Calcium 9.5 mg/dL (8.5-10.5); Carbon Dioxide 24 mmol/L (22-29); Chloride 101 mmol/L (98-107); Globulin 2.7 g/dL (1.3-4.6); Glomerular Filtration Rate 77.6 mL/min (90-130); Glucose 121 mg/dL (65-115); Lactate Dehydrogenase 177 U/L (135-214); Osmolality Calculated 283 mOsm/kg (285-295); Potassium 3.9 mmol/L (3.5-5.1); Sodium 137 mmol/L (136-145); Total Bilirubin 0.2 mg/dL (0.15-1.2); Total Protein 7.3 g/dL (6.6-8.7)
== END 2023-05-26 23:59 | disposition home or self-care (01) ==
PROVIDERS: Nurse Practitioner Family; PCP Family Medicine; Visit Provider Internal Medicine Medical Oncology
DX: R59.1 Generalized enlarged lymph nodes (principal)
CPT/HCPCS: 36415; 80053; 83615; 85025; 86140

== ENCOUNTER 2023-05-23 12:33 | Outpatient (CLI) | payer MEDICARE, MEDICAID, SELFPAY ==
--- NOTE | 2023-05-23 13:00 | US_ITS ---
WS: [id number] US pelv w/transvag [id number] HISTORY: N94.89 - Other specified conditions associated with femal... COMPARISON: 08/28/[address] 01/24/2023 Transvaginal and transabdominal imaging is submitted. Patient is status post partial hysterectomy. Th e uterus is not identified. No free fluid. Neither ovary is identified. No adnexal masses. Previously described cyst noted on the CT are not visualized by ultrasound. IMPRESSION: 1. Status post partial hysterectomy. 2. Neither ovary is identified. No adnexal cystic mass is identified by ultrasound.
== END 2023-05-23 12:34 | disposition home or self-care (01) ==
LOC: RAD 12:33
PROVIDERS: PCP Family Medicine; Visit Provider Nurse Practitioner Family
DX: N94.89 Other specified conditions associated with female genital organs and menstrual cycle (principal); N95.8 Other specified menopausal and perimenopausal disorders
CPT/HCPCS: 76830; 76856

== ENCOUNTER → 2023-06-09 10:18 | Outpatient (BNVA) | payer MEDICARE, SELFPAY | PROVIDERS: PCP Nurse Practitioner Family; Visit Provider Internal Medicine Rheumatology | DX: R59.1 Generalized enlarged lymph nodes (principal); J34.89 Other specified disorders of nose and nasal sinuses; R06.02 Shortness of breath; M35.00 Sjogren syndrome, unspecified; M19.90 Unspecified osteoarthritis, unspecified site; Z79.899 Other long term (current) drug therapy; Z71.89 Other specified counseling; R59.0 Localized enlarged lymph nodes | CPT/HCPCS: 99215 ==

== ENCOUNTER → 2023-06-17 10:07 | Outpatient (BNVA) | payer MEDICARE, SELFPAY | PROVIDERS: PCP Nurse Practitioner Family; Referring Provider Internal Medicine Rheumatology; Visit Provider Internal Medicine Pulmonary Disease | DX: J44.9 Chronic obstructive pulmonary disease, unspecified (principal); R59.0 Localized enlarged lymph nodes; F17.200 Nicotine dependence, unspecified, uncomplicated | CPT/HCPCS: 99204 ==

== ENCOUNTER 2023-06-23 09:19 | Outpatient (CLI) | payer MEDICARE, SELFPAY ==
[2023-06-23] MEDS: iohexol 350 mg/mL 500 mL Btl (per mL) IV (09:54)
--- NOTE | 2023-06-23 10:00 | CTR_ITS ---
PROCEDURE INFORMATION: Exam: CT Chest With Contrast; Diagnostic Exam date and time: 06/23/2023 9:46 AM Age: 48 years old Clinical indication: Other: Generalized enlarged lymph nodes; Prior surgery; Surgery date: 6+ months; Surgery type: Splenectomy, gb, 2/3 colon, appy, hyst, bladder sling; Additional info: R59.1 - generalized enlarged lymph nodes TECHNIQUE: Imaging protocol: Diagnostic computed tomography of the chest with contrast. Radiation optimization: All CT scans at this facility use at least one of these dose optimization techniques: automated exposure control; mA and/or kV adjustment per patient size (includes targeted exams where dose is matched to clinical indication); or iterative reconstruction. Contrast material: OMNI 350; Contrast volume: 95 ml; Contrast route: INTRAVENOUS (IV); REPORTING DATA: Count of CT and Cardiac NM exams in prior 12 months: This patient has received 2 known [address]s and 0 known cardiac nuclear medicine studies in the 12 months prior to the current study. COMPARISON: CT chest abdpel w/*[id number] 01/24/2023 4:50 PM RADIATION DOSE METRICS: Total DLP (mGy-cm): 637.38 FINDINGS: Lungs: Unremarkable. No consolidation. No masses. Pleural spaces: Unremarkable. No pneumothorax. No pleural effusion. Heart: Unremarkable. No cardiomegaly. No pericardial effusion. Lymph nodes: Unremarkable. No enlarged lymph nodes. Vasculature: Unremarkable. No aortic aneurysm. Bones/joints: Unremarkable. No acute fracture. Soft tissues: Unremarkable. PROCEDURE INFORMATION: Exam: CT Abdomen And Pelvis With Contrast Exam date and time: 06/23/2023 9:46 AM Age: 48 years old Clinical indication: Other: Generalized enlarged lymph nodes; Prior surgery; Surgery date: 6+ months; Surgery type: Splenectomy, gb, 2/3 colon, appy, hyst, bladder sling; Additional info: R59.1 - generalized enlarged lymph nodes TECHNIQUE: Imaging protocol: Computed tomography of the abdomen and pelvis with contrast. Radiation optimization: All CT scans at this facility use at least one of these dose optimization techniques: automated exposure control; mA and/or kV adjustment per patient size (includes targeted exams where dose is matched to clinical indication); or iterative reconstruction. Contrast material: OMNI 350; Contrast volume: 95 ml; Contrast route: INTRAVENOUS (IV); REPORTING DATA: Count of CT and Cardiac NM exams in prior 12 months: This patient has received 2 known CTs and 0 known cardiac nuclear medicine studies in the 12 months prior to the current study. COMPARISON: CT chest abdpel w/*[id number] 01/24/2023 4:50 PM RADIATION DOSE METRICS: Total DLP (mGy-cm): 637.38 FINDINGS: Liver: Normal. No mass. Gallbladder and bile ducts: Cholecystectomy. Pancreas: Normal. No ductal dilation. Spleen: Spleen is absent. Adrenal glands: Normal. No mass. Kidneys and ureters: Normal. No hydronephrosis. Stomach and bowel: Unremarkable. No obstruction. No mucosal thickening. Appendix: No evidence of appendicitis. Intraperitoneal space: Unremarkable. No free air. No significant fluid collection. Vasculature: Unremarkable. No abdominal aortic aneurysm. Lymph nodes: Visible periaortic lymph nodes are small in size. Urinary bladder: Unremarkable as visualized. Reproductive: Hysterectomy. Bones/joints: Unremarkable. No acute fracture. Soft tissues: Unremarkable. CT[facility]/*[id number] IMPRESSION: No intrathoracic abnormality. IMPRESSION: No significant subdiaphragmatic pathology.
== END 2023-06-23 09:20 | disposition home or self-care (01) ==
LOC: RAD 09:19
PROVIDERS: PCP Nurse Practitioner Family; Visit Provider Internal Medicine Rheumatology
DX: R59.1 Generalized enlarged lymph nodes (principal); Z90.89 Acquired absence of other organs; Z90.49 Acquired absence of other specified parts of digestive tract
CPT/HCPCS: 71260; 74177; Q9967

== ENCOUNTER 2023-07-08 06:54 | Outpatient (CLI) | payer MEDICARE, SELFPAY ==
[2023-07-08 07:24] VITALS: PULSE 88; RESP 18; O2SAT 97
[2023-07-08] MEDS: albuterol 2.5 mg/3 mL Neb INHALATION (07:24)
[2023-07-08 07:29] VITALS: PULSE 93
== END 2023-07-08 06:55 | disposition home or self-care (01) ==
PROVIDERS: PCP Nurse Practitioner Family; Visit Provider Internal Medicine Pulmonary Disease
DX: J44.9 Chronic obstructive pulmonary disease, unspecified (principal); Z72.0 Tobacco use; R94.2 Abnormal results of pulmonary function studies
CPT/HCPCS: 94060; 94618; 94726; 94729; J7613

== ENCOUNTER 2023-08-23 11:09 | Outpatient (CLI) | payer MEDICARE, SELFPAY ==
--- NOTE | 2023-08-23 11:30 | MM_ITS ---
WS: [id number] VIEWS: MLO and CC views both breasts. 3D digital tomosynthesis is also included in this exam. Comparison made with prior exam of 07/25/2017, 04/24/2019.. Findings: There was no sign of mass, architectural distortion or suspicious calcification in either breast. The re are scattered areas of fibroglandular density. Impression: MM/[place] [id number] BI-RADS: 2-Benign finding. FOLLOW-UP: 1 Year Follow-up This mammogram was also analyzed by the Computer Aided Detection System [employer].
== END 2023-08-23 11:10 | disposition home or self-care (01) ==
LOC: MOBLMAM 11:19
PROVIDERS: PCP Nurse Practitioner Family; Visit Provider Nurse Practitioner Family
DX: Z12.31 Encounter for screening mammogram for malignant neoplasm of breast (principal)
CPT/HCPCS: 77063; 77067

== ENCOUNTER → 2023-08-30 11:46 | Outpatient (BNVA) | payer MEDICARE, SELFPAY | PROVIDERS: PCP Nurse Practitioner Family; Visit Provider Internal Medicine Pulmonary Disease | DX: R59.0 Localized enlarged lymph nodes (principal); J44.9 Chronic obstructive pulmonary disease, unspecified; J45.21 Mild intermittent asthma with (acute) exacerbation; F17.210 Nicotine dependence, cigarettes, uncomplicated | CPT/HCPCS: 99214 ==

== ENCOUNTER 2023-09-20 10:01 | Outpatient (CLI) | payer MEDICARE, SELFPAY ==
[2023-09-20 10:33] LABS: Basophils # 0.1 10^3/uL (0.0-0.1); Basophils % 0.8 %; Eosinophils # 0.2 10^3/uL (0.0-0.8); Eosinophils % 1.4 %; Hematocrit 40.4 % (36-47); Lymphocytes # 2.1 10^3/uL (0.8-4.8); Lymphocytes % 19.9 %; Mean Corpuscular HGB Conc 33.2 g/dL (30-55); Mean Corpuscular Hemoglobin 30.9 pg (27-33); Mean Corpuscular Volume 93.3 fl (85-98); Mean Platelet Volume 9.6 fL (7.4-10.4); Monocytes # 0.6 10^3/uL (0.2-0.9); Monocytes % 5.9 %; Neutrophils # 7.54 10^3/uL (1.8-7.7); Neutrophils % 71.6 %; Nucleated Red Blood Cells % 0 %; Platelet Count 448 10^3/cmm (157-399); Red Blood Count 4.33 10^6/uL (3.85-5.65); Red Cell Distribution Width 14.9 % (12.1-15.1); White Blood Count 10.53 10^3/uL (3.29-11.43)
[2023-09-20 10:50] LABS: Alanine Aminotransferase 14 U/L (0-33); Albumin Level 4.3 g/dL (3.5-5.2); Alkaline Phosphatase 77 U/L (35-105); Aspartate Amino Transferase 13 U/L (0-32); Globulin 2.4 g/dL (1.3-4.6); Glomerular Filtration Rate 59.7 mL/min (90-130); Total Bilirubin 0.2 mg/dL (0.15-1.2); Total Protein 6.7 g/dL (6.6-8.7)
[2023-09-22 17:29] LABS: Alternaria Alternata (M6) Ige <0.10 kU/L; Alternaria Class 0; Bermuda Class 0; Bermuda Grass (G2) Ige <0.10 kU/L; Cat Dander (E1) Ige <0.10 kU/L; Cat Dander Class 0; Common Ragweed (Short) (W1) Ig <0.10 kU/L; D. Farinae Class 0; Dermatophagoides Class 0; Dermatophagoides Farinae (D2) <0.10 kU/L; Dermatophagoides Pteronyssinus <0.10 kU/L; Dog Dander (E5) Ige <0.10 kU/L; Dog Dander Class 0; Elm (T8) Ige <0.10 kU/L; Elm Class 0; English Plantain (W9) Ige <0.10 kU/L; English Plantain Class 0; House Dust (Greer) (H1) Ige <0.10 kU/L; House Dust (Hollister- Stier) <0.10 kU/L; House Dust Class 0; Immunoglobulin E 20 kU/L (<OR=114); Johnson Grass (G10) Ige <0.10 kU/L; Johnson Grass Cl 0; June Grass Class 0; June Grass(Kentucky Blue) (G8) <0.10 kU/L; Lamb'S Quarters (Goose Foot) <0.10 kU/L; Lamb'S Quarters Class 0; Maple (Box Elder) (T1) Ige <0.10 kU/L; Maple Class 0; Meadow Fescue (G4) Ige <0.10 kU/L; Meadow Fescue Class 0; Mucor Racemosus Class 0; Oak (T7) Ige <0.10 kU/L; Oak Class 0; Orchard Grass (Cocksfoot) (G3) <0.10 kU/L; Penicillium Class 0; Penicillium Notatum (M1) Ige <0.10 kU/L; Perennial Rye Grass (G5) Ige <0.10 kU/L; Perennial Rye Grass Class 0; Ragweeed Class 0; Rough Marsh Elder (W16) Ige <0.10 kU/L; Rough Marsh Elder Class 0; Sweet Vernal Class 0; Sweet Vernal Grass (G1) Ige <0.10 kU/L; Timothy Grass (G6) Ige <0.10 kU/L; Timothy Grass Class 0
== END 2023-09-20 10:02 | disposition home or self-care (01) ==
LOC: LAB 10:03
PROVIDERS: Absent Provider Internal Medicine Pulmonary Disease; PCP Nurse Practitioner Family; Visit Provider Internal Medicine Rheumatology
DX: J45.901 Unspecified asthma with (acute) exacerbation (principal); Z79.899 Other long term (current) drug therapy; M19.90 Unspecified osteoarthritis, unspecified site
CPT/HCPCS: 36415; 80076; 82565; 82785; 85025; 86003; 86140

== ENCOUNTER → 2023-09-28 10:24 | Outpatient (BNVA) | payer MEDICARE, SELFPAY | PROVIDERS: PCP Nurse Practitioner Family; Visit Provider Obstetrics & Gynecology | DX: N83.201 Unspecified ovarian cyst, right side (principal) | CPT/HCPCS: 76830 ==

== ENCOUNTER 2023-12-20 12:34 | Oncology outpatient (recurring) (ONCR) | payer MEDICARE, SELFPAY ==
--- OUTSIDE RECORDS SUMMARY | 2023-12-19 10:07 | XMS_ITS | Patient Health Record ---
Author Name Unknown Organization [facility] Address [address] [place] [address] Care Team Providers Care Senior Accounting Analyst Name Role Phone Pierre Baca Primary Care Provider [phone] Allergies Allergen (clinical drug ingredient) Drug/Non Drug Allergy documented on EMR Reaction Allergy Type Onset Date Status amoxicillin / clavulanate Augmentin Unknown Drug Allergy Active aspirin Aspirin Unknown Drug Allergy Active erythromycin Erythromycin Unknown Drug Allergy A ctive morphine Morphine Unknown Drug Allergy Active Non-steroidal anti-inflammatory agent (FN) NSAIDs Unknown Drug Allergy Active Results Component Value Reference Range Notes CT Abdomen, Pelvis w/ Contra st-[id number] Reviewed date:08/09/2023 10:06:20 AM Interpretation: Performing Lab: Notes/Report: Diagnostic Colonoscopy-[id number] Reviewed date:08/19/2023 08:56:27 AM Interpretation: Performing Lab: Notes/Report: EGD, Upper GI Diagnostic-[id number] Reviewed date:08/19/2023 08:57:08 AM Interpretation: Performing Lab: Notes/Report: Diagnostic Colonoscopy-[id number] Reviewed date:08/23/2023 01:30:48 PM Interpretation: Performing Lab: Notes/Report: EGD, Upper GI Diagnostic-[id number] 35 Reviewed date:08/23/2023 01:30:57 PM Interpretation: Performing Lab: Notes/Report: Reason For Referral Reason ABDOMINAL BLOATING ALTERNATING CONSTIPATION & DIARRHEA WEIGHT GAIN, ABNORMAL Diagnosis 1 Abdominal distension (gaseous) (R14.0) Diagnosis 2 Other specified symp toms and signs involving the digestive system and abdomen (R19.8) Diagnosis 3 Abnormal weight gain (R63.5) Referring Provider First Name D J Referring Provider Last Name Gross Referring Provider Speciality Family Pra ctice Referred Organization [facility] Referred Provider Pierre Baca Referred Address [address] [place], [place],[address], Referred Provider Specialty Internal Med icine General Notes Radha Ornelas 024 09:06:37 AM >NO BUNDLE TIER AND VOICEMAIL WAS LEFT Referral Priority Routine Medications Medication SIG (Take, Route, Frequency, Duration) Notes Start Date End Date Status Syringe 21G X 1 12 ML as directed Active Mirtazapine 45 MG 1 tablet at bedtime Orally Once a day Active Ondansetron HCl 8 MG 1 tablet as needed Orally Once a day Active Pantoprazole Sodium 40 MG 1 tablet Orall y Once a day Active Pilocarpine HCl 5 MG 1 tablet Orally Three times a day Active Albuterol Sulfate HFA 108 (90 Base) MCG/ACT 1 puff as needed Inhalation every 4 hrs Active rOPINIRole HCl 0.25 MG 1 tablet 1 to 3 hours before bedtime Orally Once a day Active Methotrexate Sodium 10 MG as directed Orally Active Folic Acid 1 MG 1 tablet Orally Once a day Active Hydroxychloroquine Sulfate 200 MG as directed Orally Active Prazosin HCl 2 MG 1 capsule at bedtime Orally Once a day Active clonazePAM 1 MG 1 tablet Orally Once a day Active Dicyclomine HCl 20 MG 1 tablet Orally Three times a day Active predniSONE 20 MG 2 tabs for 7 days; 1 tab for 7 days; 1/2 tab for 7 days Orally Once a day Not-Taking Doxycycline Hyclate 100 MG 1 tablet Oral ly Once a day Active predniSONE 5 MG 1 tablet Orally Once a day Active Fluconazole 150 MG 1 tablet Orally Active Social History Tobacco Use: Social History Observation Description Date Details (start date - stop date) Current Smoker NA - NA xTobacco Use/Smoking Question Answer Notes Are you a current smoker How often do you smoke cigarettes? every day How many cigarettes a day do you smoke? 11-20 Alcohol Screen (Audit-C) Question Answer Notes Did you have a drink containing alcohol in the p ast year? 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) Active confirmed Problem 091334386 Postprandial bloating (R14.0) Active confirmed Problem Stricture of esophagus (02272224) Lower esophageal ring (Schatzki) (K22.2) Active confirmed Vital Signs Heart Rate 100 /min 08/03/2023 Temperature 98.9 degrees Fahrenheit 08/03/2023 Height-cm 157.48 cm 08/03/2023 Oximetry 95 % 08/03/2023 Blood pressure diastolic 68 mm Hg 08/03/2023 Weight-kg 67.68 kg 08/03/2023 Height 62 in 08/03/2023 Blood pressure systolic 120 mm Hg 08/03/2023 Weight 149.2 lbs 08/03/2023 BMI 27.29 kg/m2 08/03/2023 Encounters Encounter Location Date Provider Diagnosis [facility] [address] [place] [id number] 08/03/2023 Pierre Baca Idiopathic thrombocytopenic purpura (ITP) D69.3 ; Sjogren's syndrome, with unspecified organ involvement M35.00 ; Postprandial bloating R14.0 and Postprandial epigastric pain R10.13 [facility] [address] [place] [address] 08/17/2023 Pierre Baca Postprandial epigastric pain R10.13 ; Lower esophageal ring (Schatzki) K22.2 ; Abdominal pain, unspecified abdominal location R10.9 and History of partial colectomy Z90.49 Assessments Encounter Date Diagnosis (ICD Code) Assessment Notes Treat ment Notes Treatment Clinical Notes 08/03/2023 Sjogren's syndrome, with unspecified organ involvement (ICD-10 - M35.00) 08/03/2023 Idiopathic thrombocytopenic purpura (ITP) (ICD-10 - D69.3) 08/17/2023 Postprandial epigast ephraim pain (ICD-10 - R10.13) 08/17/2023 Lower esophageal rin g (Schatzki) (ICD-10 - K22.2) 08/17/2023 Abdominal pain, unspecified abdominal location (ICD-10 - R10.9) 08/03/2023 Postprandial bloatin g (ICD-10 - R14.0) --x- to be completed at [facility] ---to be completed at [facility] ---to be completed at [facility] ---to be completed at [facility] 08/17/2023 History of partial colectomy (ICD-10 - Z90.49) 08/03/2023 Postprandial epigast ephraim pain (ICD-10 - R10.13) --x- to be completed at [facility] ---to be completed at [facility] ---to be completed at [facility] ---to be completed at [facility] Plan Of Treatment No Information Insurance Providers Payer Name Payer Address Payer Phone Subscriber Number Group Number Insured Name Patient Relationship to Insured Coverage Start Date Coverage End Date [facility] Dual Complete [address] [place] [address] [phone] [id number] JAROD JACOBO Self - patient is the insured Medical (General) History Medical History History ICD Code ITP remission Sjogren's syndrome fibromyalgia Arthritis Surgical History Surgery Date(Month/Year) splenectomy 1996 gall bladder removal 2000 bladder slinbg 2009 partial hysterectomy 2007 small and large colon appendectomy altog ether 1979
[2023-12-20 12:46] LABS: Basophils % 0.3 %; Eosinophils # 0.1 10^3/uL (0.0-0.8); Eosinophils % 0.4 %; Hematocrit 39.8 % (36-47); Lymphocytes # 2.4 10^3/uL (0.8-4.8); Mean Corpuscular HGB Conc 33.9 g/dL (30-55); Mean Corpuscular Volume 91.3 fl (85-98); Mean Platelet Volume 9.3 fL (7.4-10.4); Monocytes # 0.5 10^3/uL (0.2-0.9); Monocytes % 3.9 %; Neutrophils # 9.44 10^3/uL (1.8-7.7); Nucleated Red Blood Cells % 0 %; Platelet Count 404 10^3/cmm (157-399); Red Blood Count 4.36 10^6/uL (3.85-5.65); Red Cell Distribution Width 14.7 % (12.1-15.1); White Blood Count 12.43 10^3/uL (3.29-11.43)
[2023-12-20 13:08] LABS: Alanine Aminotransferase 19 U/L (0-33); Albumin Level 4.2 g/dL (3.5-5.2); Alkaline Phosphatase 69 U/L (35-105); Anion Gap 14.9 (5-19); Aspartate Amino Transferase 22 U/L (0-32); Blood Urea Nitrogen 6 mg/dL (6-20); Calcium 8.9 mg/dL (8.5-10.5); Carbon Dioxide 26 mmol/L (22-29); Chloride 100 mmol/L (98-107); Globulin 2.7 g/dL (1.3-4.6); Glomerular Filtration Rate 59.7 mL/min (90-130); Glucose 130 mg/dL (65-115); Osmolality Calculated 283 mOsm/kg (285-295); Potassium 3.9 mmol/L (3.5-5.1); Sodium 137 mmol/L (136-145); Total Bilirubin 0.2 mg/dL (0.15-1.2); Total Protein 6.9 g/dL (6.6-8.7)
== END 2023-12-25 23:59 | disposition home or self-care (01) ==
PROVIDERS: PCP Nurse Practitioner Family; Visit Provider Nurse Practitioner Family
DX: R59.0 Localized enlarged lymph nodes (principal); D64.9 Anemia, unspecified
CPT/HCPCS: 36415; 80053; 85025

== ENCOUNTER 2024-01-03 16:31 | Outpatient (CLI) | payer MEDICARE, SELFPAY ==
--- NOTE | 2024-01-03 16:35 | CTR_ITS ---
PROCEDURE INFORMATION: Exam: CT Neck With Contrast Exam date and time: 01/03/2024 4:40 PM Age: 48 years old Clinical indication: Mass, lump, or swelling in neck; Patient HX: Enlarged right side neck lymph nodes x 1 year intermittently -bb; Additional info: Enlarged right cervical lymph node TECHNIQUE: Imaging protocol: Computed tomography of the neck with contrast. Radiation optimization: All CT scans at this facility use at least one of these dose optimization techniques: automated exposure control; mA and/or kV adjustment per patient size (includes targeted exams where dose is matched to clinical indication); or iterative reconstruction. Contrast material: OMNI 350; Contrast volume: 100 ml; Contrast route: INTRAVENOUS (IV); COMPARISON: CT neck w con* [id number] 12/31/2022 4:10 PM RADIATION DOSE METRICS: Total DLP (mGy-cm): 155.78 FINDINGS: Salivary glands: Normal. Glands are normal in size. Pharynx: Unremarkable. No significant tonsillar enlargement. Prevertebral and retropharyngeal spaces: Unremarkable. Larynx: Unremarkable. Epiglottis is normal. Thyroid: Small subcentimeter thyroid nodules in the isthmus and right lobe. Trachea: Visualized trachea is unremarkable. Lungs: Heterogeneous lung apices suggestive of possible early emphysema. Lymph nodes: Small cervical adenopathy however, there is a large right carotid chain lymph node measuring 15 x 22 mm. A a the cervical carotid lymph nodes are seen the 2nd largest is 11 x 12 mm in the carotid chain on the right. The largest lymph node on the left is 10 x 13 mm. Bones/joints: Unremarkable. No acute fracture. Soft tissues: Unremarkable. No significant soft tissue swelling. CT/CT neck w con* [id number] IMPRESSION: The area of abnormality is an enlarged lymph node in the right carotid chain. There is a 2nd enlarged right carotid chain lymph node with a left carotid chain lymph node at the upper limits of normal. COMMENTS: Consistent with the [employer]'s Incidental Findings Committee white paper (J Am Cee Radiol 2015): In patients aged 35 years and older with an incidental thyroid nodule equal to or greater than 1.[address], MRI or extrathyroidal US, further evaluation with dedicated thyroid US is recommended for patients with normal life expectancy and without comorbidities. For smaller nodules without suspicious features, no further evaluation or follow up is recommended.
[2024-01-03] MEDS: iohexol 350 mg/mL 500 mL Btl (per mL) IV (16:53)
== END 2024-01-03 16:32 | disposition home or self-care (01) ==
LOC: RAD 16:32
PROVIDERS: PCP Nurse Practitioner Family; Visit Provider Nurse Practitioner Family
DX: R59.0 Localized enlarged lymph nodes (principal); E04.2 Nontoxic multinodular goiter; R91.8 Other nonspecific abnormal finding of lung field
CPT/HCPCS: 70491; 99214; Q9967

== ENCOUNTER → 2024-01-30 08:31 | Outpatient (BNVA) | payer MEDICARE, SELFPAY | PROVIDERS: PCP Nurse Practitioner Family; Visit Provider Obstetrics & Gynecology | DX: N83.291 Other ovarian cyst, right side (principal) | CPT/HCPCS: 76830 ==

== ENCOUNTER → 2024-02-20 10:58 | Outpatient (BNVA) | payer MEDICARE, SELFPAY | PROVIDERS: PCP Nurse Practitioner Family; Visit Provider Internal Medicine Rheumatology | DX: M35.00 Sjogren syndrome, unspecified (principal); M19.90 Unspecified osteoarthritis, unspecified site; Z79.899 Other long term (current) drug therapy; Z71.85 Encounter for immunization safety counseling; R59.0 Localized enlarged lymph nodes; M47.814 Spondylosis without myelopathy or radiculopathy, thoracic region; M47.812 Spondylosis without myelopathy or radiculopathy, cervical region; M47.816 Spondylosis without myelopathy or radiculopathy, lumbar region; M79.7 Fibromyalgia; J44.9 Chronic obstructive pulmonary disease, unspecified; N30.20 Other chronic cystitis without hematuria; K21.9 Gastro-esophageal reflux disease without esophagitis; K44.9 Diaphragmatic hernia without obstruction or gangrene; K25.9 Gastric ulcer, unspecified as acute or chronic, without hemorrhage or perforation; Z72.0 Tobacco use | CPT/HCPCS: 36415; 72072; 80076; 82565; 85025; 85651; 86140; 99215 ==

== ENCOUNTER → 2024-03-19 14:46 | Outpatient (BNVA) | payer MEDICARE, SELFPAY | PROVIDERS: PCP Nurse Practitioner Family; Visit Provider Nurse Practitioner Family | DX: Z79.899 Other long term (current) drug therapy (principal); I10 Essential (primary) hypertension; D64.9 Anemia, unspecified; F41.1 Generalized anxiety disorder; R68.89 Other general symptoms and signs | CPT/HCPCS: 80053; 80061; 81003; 82607; 82746; 83036; 83550; 84439; 84443; 87426 ==

== ENCOUNTER → 2024-06-28 09:28 | Outpatient (BNVA) | payer MEDICARE, SELFPAY | PROVIDERS: PCP Nurse Practitioner Family; Visit Provider Podiatrist Foot & Ankle Surgery | DX: L60.3 Nail dystrophy (principal) | CPT/HCPCS: 99213 ==

== ENCOUNTER → 2024-07-30 10:43 | Outpatient (BNVA) | payer MEDICARE, SELFPAY | PROVIDERS: PCP Nurse Practitioner Family; Referring Provider Nurse Practitioner Family; Visit Provider Nurse Practitioner Family | DX: L81.4 Other melanin hyperpigmentation (principal); L57.8 Other skin changes due to chronic exposure to nonionizing radiation; L82.1 Other seborrheic keratosis; D22.5 Melanocytic nevi of trunk; L72.0 Epidermal cyst; R20.8 Other disturbances of skin sensation; L29.89 Other pruritus; R58 Hemorrhage, not elsewhere classified; L53.8 Other specified erythematous conditions; D48.5 Neoplasm of uncertain behavior of skin; L57.0 Actinic keratosis | CPT/HCPCS: 10060; 11102; 17000; 17110; 99203 ==

== ENCOUNTER → 2024-08-14 10:00 | Outpatient (BNVA) | payer MEDICARE, SELFPAY | PROVIDERS: PCP Nurse Practitioner Family; Referring Provider Nurse Practitioner Family; Visit Provider Internal Medicine | DX: Z79.899 Other long term (current) drug therapy (principal); E34.9 Endocrine disorder, unspecified; E55.9 Vitamin D deficiency, unspecified; M35.00 Sjogren syndrome, unspecified; R59.1 Generalized enlarged lymph nodes | CPT/HCPCS: 36415; 82306; 83036; 83516; 86376; 86800 ==

== ENCOUNTER 2024-09-18 12:04 | Outpatient (CLI) | payer MEDICARE, SELFPAY | END 2024-09-18 12:05 | disposition home or self-care (01) | PROVIDERS: PCP Nurse Practitioner Family; Visit Provider Internal Medicine | DX: E34.9 Endocrine disorder, unspecified (principal); E55.9 Vitamin D deficiency, unspecified; M35.00 Sjogren syndrome, unspecified; R59.1 Generalized enlarged lymph nodes | CPT/HCPCS: 82384; 82530 ==

== ENCOUNTER → 2024-09-28 13:45 | Outpatient (BNVA) | payer MEDICARE, SELFPAY | PROVIDERS: PCP Nurse Practitioner Family; Visit Provider Nurse Practitioner Family | DX: R06.02 Shortness of breath (principal); J84.10 Pulmonary fibrosis, unspecified | CPT/HCPCS: 71046 ==

== ENCOUNTER 2024-10-03 09:37 | Outpatient (CLI) | payer MEDICARE, SELFPAY ==
--- NOTE | 2024-10-03 09:40 | MM_ITS ---
WS: [id number] BILATERAL SCREENING DIGITAL TOMOSYNTHESIS MAMMOGRAM WITH CAD HISTORY: SCREENING COMPARISON: 08/23/2023, 04/24/2019 Bilateral CC and MLO views with tomosynthesis and synthetic mammography submitted. Computer aided detection analyzed. Breast composition: There are scattered areas of fibroglandular density. No suspicious masses, microcalcifications or architectural distortion. MM/MM scr BI tomosynthesis [id number] IMPRESSION: BI-RADS: 2 - Benign. FOLLOW UP: 1 Year Follow-up
== END 2024-10-03 09:38 | disposition home or self-care (01) ==
PROVIDERS: PCP Nurse Practitioner Family; Visit Provider Nurse Practitioner Family
DX: Z12.31 Encounter for screening mammogram for malignant neoplasm of breast (principal); R92.323 Mammographic fibroglandular density, bilateral breasts
CPT/HCPCS: 77063; 77067

== ENCOUNTER → 2024-10-11 07:03 | Outpatient (BNVA) | payer MEDICARE, SELFPAY | PROVIDERS: PCP Nurse Practitioner Family; Visit Provider Podiatrist Foot & Ankle Surgery | DX: L60.0 Ingrowing nail (principal); L03.115 Cellulitis of right lower limb | CPT/HCPCS: 11750; 99214; J9999 ==

== ENCOUNTER → 2024-10-19 10:10 | Outpatient (BNVA) | payer MEDICARE, SELFPAY | PROVIDERS: PCP Nurse Practitioner Family; Visit Provider Internal Medicine | DX: R63.5 Abnormal weight gain (principal); E55.9 Vitamin D deficiency, unspecified; R23.2 Flushing; N95.1 Menopausal and female climacteric states | CPT/HCPCS: 36415; 82627; 84403; 99214 ==

== ENCOUNTER 2025-01-10 19:24 | Emergency (ER) | payer MEDICARE, MEDICAID, SELFPAY ==
[2025-01-10] VITALS (7 sets, daily range): BP systolic 116–143; BP diastolic 66–95; PULSE 67–89; RESP 15–18; TEMP 36.7; O2SAT 95–97; BMI 26.2
--- OUTSIDE RECORDS SUMMARY | 2025-01-10 19:31 | XMS_ITS | Encounter Summary ---
Author Organization [facility] Address [address] [place] [address] Care Team Providers Care Physical Therapy Teacher Name Role Phone Gage Ovalles APRN Primary Care Provider [phone] Encounter Details Date Type Department Care Team (Latest Contact Info) Description 03/30/2004 Outpatient Historical [facility] Imaging Services-Manpreet Hester [place] [address] [place] [address] Thaddeus Jolly MD [address] [facility] [address] [place] [address] OVARIAN CYST NEC/NOS (Primary Dx) Social History Tobacco Use Types Packs/Day Years Used Date Smoking Tobacco: Never Assessed Comments Unknown Sex and Gender Information Value Date Recorded Sex Assigned at Not on file 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
--- OUTSIDE RECORDS SUMMARY | 2025-01-10 19:31 | XMS_ITS | Encounter Summary ---
Author Organization [facility] Address [address] [place] [address] Care Team Providers Care Wireless Engineer Name Role Phone Gage Ovalles APRN Primary Care Provider [phone] Encounter Details Date Type Department Care Team (Late st Contact Info) Description 03/30/2004 Outpatient Historical [facility] Imaging Services-[facility] [place] [address] [place] [address] Social History Tobacco Use Types Packs/Day Years Used Date Smoking Tobacco: Never Assessed Comments Unknown Sex and Gender Information Value Date Recorded Sex Assigned at Not on file 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
--- OUTSIDE RECORDS SUMMARY | 2025-01-10 19:31 | XMS_ITS | Encounter Summary ---
Author Organization [facility] Address [address] [place] [address] Care Team Providers Care Heart Coordinator Name Role Phone Gage Ovalles APRN Primary Care Provider [phone] Encounter Details Date Type Department Care Team (Latest Contact Info) Description 01/21/2005 Outpatient [facility] Medicine [place] [address] [facility] [address] [place] [id number] Jenelle Monreal, WASHING MACHINE LOADER AND PULLER [address] [place] [address] DIARRHEA NOS (Primary Dx); ABDOMINAL PAIN UNSPEC SITE Social History Tobacco Use Types Packs/Day Years Used Date Smoking Tobacco: Never Assessed Comments Unknown Sex and Gender Information Value Date Recorded Sex Assigned at Not on file 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
--- OUTSIDE RECORDS SUMMARY | 2025-01-10 19:31 | XMS_ITS | Encounter Summary ---
Author Organization [facility] Address [address] [facility] [place] [address] Care Team Providers Care Business Services Sales Representative Name Role Phone Gage Ovalles APRN Primary Care Provider [phone] Encounter Details Date Type Department Care Team (Latest Contact Info) Description 09/30/2004 Outpatient Historical [facility] Family Medicine- [address] [place] [address] Luke Monreal NP NO ADDRESS ON FILE ACUTE SINUSITIS NOS (Primary Dx); ACUTE BRONCHITIS; B-COMPLEX DEFIC NEC Social History Tobacco Use Types Packs/Day Years Used Date Smoking Tobacco: Never Assessed Comments Unknown Sex and Gender Information Value Date Recorded Sex Assigned at Not on file 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
--- OUTSIDE RECORDS SUMMARY | 2025-01-10 19:31 | XMS_ITS | Encounter Summary ---
Author Organization [facility] Address [address] [place] [address] Care Team Providers Care Shine Worker Name Role Phone Gage Ovalles APRN Primary Care Provider [phone] Encounter Details Date Type Department Care Team (Latest Contact Info) Description 09/11/2007 Outpatient [facility] [address] [facility] [address] [place] [address] Marko Tan MD NO ADDRESS ON FILE Headache; Immune Thrombocytopenic Purpura (CMS/HCC); Restless Legs Syndrome (RLS); Depressive Disorder, not Elsewhere Classified; Anxiety State, Unspecified; Tobacco Use Disorder Social History Tobacco Use Types Packs/Day Years Used Date Smoking Tobacco: Never Assessed Comments Unknown Sex and Gender Information Value Date Recorded Sex Assigned at Not on file Legal Sex Female 2:53 AM 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
--- OUTSIDE RECORDS SUMMARY | 2025-01-10 19:31 | XMS_ITS | Encounter Summary ---
Author Organization [facility] Address [address] [place] [address] Care Team Providers Care Barber Stylist Name Role Phone Gage Ovalles APRN Primary Care Provider [phone] Encounter Details Date Type Department Care Team (Latest Contact Info) Description 03/25/2004 Outpatient Historical [facility]-Case Mir A[place]ac [address] [place] [address] Thaddeus Jolly MD [address] [facility] [address] [place] [address] MENSTRUAL DISORDER NOS (Primary Dx); FEMALE GENITAL SYMPTOMS NOS Social History Tobacco Use Types Packs/Day Years Used Date Smoking Tobacco: Never Assessed Comments Unknown Sex and Gender Information Value Date Recorded Sex Assigned at Not on file Legal Sex Female 2:53 AM CLINICAL EDUCATION CONSULTANT Gender Identity Not on file Sexual Orientation Not on file documented as of this encounter Plan of Treatment Not on file documented as of this encounter Visit Diagnoses Diagnosis Unspecified disorder of menstruation and other abnormal bleeding from female genital tract- Primary Unspecified symptom associated with female genital organs documented in this encounter Care Teams Barber Stylist Relationship Specialty Start Date End Date Gage Ovalles APRN PCP - General Nurse Practitioner Family 02/08/19 documented as of this encounter
--- OUTSIDE RECORDS SUMMARY | 2025-01-10 19:31 | XMS_ITS | Encounter Summary ---
Author Organization [facility] Address [address] [place] [address] Care Team Providers Care Ceiling Cleaner Name Role Phone Gage Ovalles APRN Primary Care Provider [phone] Encounter Details Date Type Department Care Team (Latest Contact Info) Description 10/21/2003 Outpatient Historical [address] [address] Jenelle Monreal, CONTRACT CLERK AUTOMOBILE [address] [place] [address] ORAL APHTHAE (Primary Dx) Social History Tobacco Use Types Packs/Day Years Used Date Smoking Tobacco: Never Assessed Comments Unknown Sex and Gender Information Value Date Recorded Sex Assigned at Not on file Legal Sex Female 2:53 AM 

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
--- OUTSIDE RECORDS SUMMARY | 2025-01-10 19:31 | XMS_ITS | Encounter Summary ---
Author Organization [facility] Address [address] [facility] [place] [address] Care Team Providers Care Computing Consultant Name Role Phone Gage Ovalles APRN Primary Care Provider [phone] Encounter Details Date Type Department Care Team (Latest Contact Info) Description 02/03/2004 Outpatient Historical [facility] Family Medicine- [address] [place] [address] Luke Monreal NP NO ADDRESS ON FILE VAGINITIS NOS (Primary Dx) Social History Tobacco Use Types Packs/Day Years Used Date Smoking Tobacco: Never Assessed Comments Unknown Sex and Gender Information Value Date Recorded Sex Assigned at Not on file Legal Sex Female 2:53 AM SANDBLAST OR SHOTBLAST EQUIPMENT TENDER Gender Identity Not on file Sexual Orientation Not on file documented as of this encounter Plan of Treatment Not on file documented as of this encounter Visit Diagnoses Diagnosis Vaginitis and vulvovaginitis, unspecified- Primary documented in this encounter Care Teams Computing Consultant Relationship Specialty Start Date End Date Gage Ovalles APRN PCP - General Nurse Practitioner Family 02/08/19 documented as of this encounter
--- OUTSIDE RECORDS SUMMARY | 2025-01-10 19:31 | XMS_ITS | Encounter Summary ---
Author Organization [facility] Address [address] [place] [address] Care Team Providers Care Commercial Artist Name Role Phone Gage Ovalles APRN Primary Care Provider [phone] Encounter Details Date Type Department Care Team (Latest Contact Info) Description 03/16/2004 Outpatient Historical [address] [address] Jenelle Monreal, HOG BUYER [address] [place] [address] ABDOMINAL PAIN UNSPEC SITE (Primary Dx) Social History Tobacco Use Types Packs/Day Years Used Date Smoking Tobacco: Never Assessed Comments Unknown Sex and Gender Information Value Date Recorded Sex Assigned at Not on file Legal Sex Female 2:53 AM JACKHAMMER OPERATOR Gender Identity Not on file Sexual Orientation Not on file documented as of this encounter Plan of Treatment Not on file documented as of this encounter Visit Diagnoses Diagnosis Abdominal pain, unspecified site- Primary documented in this encounter Care Teams Commercial Artist Relationship Specialty Start Date End Date Gage Ovalles APRN PCP - General Nurse Practitioner Family 02/08/19 documented as of this encounter
--- OUTSIDE RECORDS SUMMARY | 2025-01-10 19:31 | XMS_ITS | Encounter Summary ---
Author Organization [facility] Address [address] [place] [address] Care Team Providers Care Amusement Ride Operator Name Role Phone Gage Ovalles APRN Primary Care Provider [phone] Encounter Details Date Type Department Care Team (Latest Contact Info) Description 02/20/2004 Outpatient [facility] [place] [address] [facility] [address] [place] [address] Jenelle Moneral, PROCESS DESIGN ENGINEER [address] [place] [address] ACUTE URI NOS (Primary Dx) Social History Tobacco Use Types Packs/Day Years Used Date Smoking Tobacco: Never Assessed Comments Unknown Sex and Gender Information Value Date Recorded Sex Assigned at Not on file Legal Sex Female 2:53 AM DOCTOR OF PODIATRY Gender Identity Not on file Sexual Orientation Not on file documented as of this encounter Plan of Treatment Not on file documented as of this encounter Visit Diagnoses Diagnosis Acute upper respiratory infections of unspecified site- Primary documented in this encounter Care Teams Amusement Ride Operator Relationship Specialty Start Date End Date Gage Ovalles APRN PCP - General Nurse Practitioner Family 02/08/19 documented as of this encounter
--- OUTSIDE RECORDS SUMMARY | 2025-01-10 19:31 | XMS_ITS | Encounter Summary ---
Author Organization [facility] Address [address] [facility] [place] [address] Care Team Providers Care Printed Forms Proofreader Name Role Phone Gage Ovalles APRN Primary Care Provider [phone] Encounter Details Date Type Department Care Team (Latest Contact Info) Description 02/03/2004 Outpatient Historical [facility] Family Medicine- [address] [place] [address] Luke Monreal NP NO ADDRESS ON FILE DERMATITIS NOS (Primary Dx); ACUTE BRONCHITIS; ACUTE PHARYNGITIS; VAGINITIS NOS Social History Tobacco Use Types Packs/Day Years Used Date Smoking Tobacco: Never Assessed Comments Unknown Sex and Gender Information Value Date Recorded Sex Assigned at Not on file Legal Sex Female 2:53 AM WELL FLOW OPERATOR Gender Identity Not on file Sexual Orientation Not on file documented as of this encounter Plan of Treatment Not on file documented as of this encounter Visit Diagnoses Diagnosis Contact dermatitis and other eczema, due to unspecified cause- Primary Acute bronchitis Acute pharyngitis Vaginitis and vulvovaginitis, unspecified documented in this encounter Care Teams Printed Forms Proofreader Relationship Specialty Start Date End Date Gage Ovalles APRN PCP - General Nurse Practitioner Family 02/08/19 documented as of this encounter
--- OUTSIDE RECORDS SUMMARY | 2025-01-10 19:31 | XMS_ITS | Encounter Summary ---
Author Organization [facility] Address [address] [place] [address] Care Team Providers Care Classroom Technology Technician Name Role Phone Gage Ovalles APRN Primary Care Provider [phone] Encounter Details Date Type Department Care Team (Latest Contact Info) Description 06/11/2004 Outpatient Historical [facility] OBGYN-Case Mir Hard[place] [address] [place] [address] Thaddeus Jolly MD [address] [facility] [address] [place] [address] METRORRHAGIA (Primary Dx) Social History Tobacco Use Types Packs/Day Years Used Date Smoking Tobacco: Never Assessed Comments Unknown Sex and Gender Information Value Date Recorded Sex Assigned at Not on file Legal Sex Female 2:53 AM LEAD REFINERY SUPERVISOR Gender Identity Not on file Sexual Orientation Not on file documented as of this encounter Plan of Treatment Not on file documented as of this encounter Visit Diagnoses Diagnosis Metrorrhagia- Primary documented in this encounter Care Teams Classroom Technology Technician Relationship Specialty Start Date End Date Gage Ovalles APRN PCP - General Nurse Practitioner Family 02/08/19 documented as of this encounter
--- OUTSIDE RECORDS SUMMARY | 2025-01-10 19:31 | XMS_ITS | Encounter Summary ---
Author Organization [facility] Address [address] [place] [address] Care Team Providers Care Market Research Consultant Name Role Phone Gage Ovalles APRN Primary Care Provider [phone] Encounter Details Date Type Department Care Team (Latest Contact Info) Description 01/03/2004 Outpatient Historical [address] [address] Jenelle Monreal, PRODUCT DEVELOPMENT CHEMIST [address] [place] [address] PRIMARY THROMBOCYTOPENIA (Primary Dx) Social History Tobacco Use Types Packs/Day Years Used Date Smoking Tobacco: Never Assessed Comments Unknown Sex and Gender Information Value Date Recorded Sex Assigned at Not on file Legal Sex Female 2:53 AM 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
--- OUTSIDE RECORDS SUMMARY | 2025-01-10 19:31 | XMS_ITS | Encounter Summary ---
Author Organization [facility] Address [address] [place] [address] Care Team Providers Care Editorial Assistant Name Role Phone Gage Ovalles APRN Primary Care Provider [phone] Encounter Details Date Type Department Care Team (Latest Contact Info) Description 12/10/2003 Outpatient [facility] General Surgery [address] [address] [place] [address] [place] [address] [facility] [address] [place] [address] SURGERY FOLLOWUP, UNSPEC (Primary Dx) Social History Tobacco Use Types Packs/Day Years Used Date Smoking Tobacco: Never Assessed Comments Unknown Sex and Gender Information Value Date Recorded Sex Assigned at Not on file Legal Sex Female 2:53 AM PROCUREMENT OFFICER Gender Identity Not on file Sexual Orientation Not on file documented as of this encounter Plan of Treatment Not on file documented as of this encounter Visit Diagnoses Diagnosis Follow-up examination, following unspecified surgery- Primary documented in this encounter Care Teams Editorial Assistant Relationship Specialty Start Date End Date Gage Ovalles APRN PCP - General Nurse Practitioner Family 02/08/19 documented as of this encounter
--- OUTSIDE RECORDS SUMMARY | 2025-01-10 19:31 | XMS_ITS | Encounter Summary ---
Author Organization [facility] Address [address] [place] [address] Care Team Providers Care Branch Director Name Role Phone Gage Ovalles APRN Primary Care Provider [phone] Encounter Details Date Type Department Care Team (Late st Contact Info) Description 06/23/2004 Outpatient Historical [facility] Henrry Spain MD NO ADDRESS ON FILE Social History Tobacco Use Types Packs/Day Years Used Date Smoking Tobacco: Never Assessed Comments Unknown Sex and Gender Information Value Date Recorded Sex Assigned at Not on file Legal Sex Female 2:53 AM GRAIN DRIER Gender Identity Not on file Sexual Orientation Not on file documented as of this encounter Plan of Treatment Not on file documented as of this encounter Visit Diagnoses Not on filedocumented in this encounter Care Teams Branch Director Relationship Specialty Start Date End Date Gage Ovalles APRN PCP - General Nurse Practitioner Family 02/08/19 documented as of this encounter
--- OUTSIDE RECORDS SUMMARY | 2025-01-10 19:31 | XMS_ITS | Encounter Summary ---
Author Organization [facility] Address [address] [place] [address] Care Team Providers Care Residential Manager Name Role Phone Gage Ovalles APRN Primary Care Provider [phone] Encounter Details Date Type Department Care Team (Latest Contact Info) Description 02/25/2004 Outpatient [facility] Medicine [place] [address] [facility] [address] [place] [address] Jenelle Monreal, WOOD CARVING LATHE OPERATOR [address] [place] [address] ACUTE URI NOS (Primary Dx) Social History Tobacco Use Types Packs/Day Years Used Date Smoking Tobacco: Never Assessed Comments Unknown Sex and Gender Information Value Date Recorded Sex Assigned at Not on file Legal Sex Female 2:53 AM PIPE RACKER Gender Identity Not on file Sexual Orientation Not on file documented as of this encounter Plan of Treatment Not on file documented as of this encounter Visit Diagnoses Diagnosis Acute upper respiratory infections of unspecified site- Primary documented in this encounter Care Teams Residential Manager Relationship Specialty Start Date End Date Gage Ovalles APRN PCP - General Nurse Practitioner Family 02/08/19 documented as of this encounter
--- OUTSIDE RECORDS SUMMARY | 2025-01-10 19:31 | XMS_ITS | Encounter Summary ---
Author Organization [facility] Address [address] [place] [address] Care Team Providers Care Associate Faculty Name Role Phone Gage Ovalles APRN Primary Care Provider [phone] Encounter Details Date Type Department Care Team (Latest Contact Info) Description 12/10/2004 Outpatient Historical [facility] Medicine [address] [address] Luke Monreal NP NO ADDRESS ON FILE CONJUNCTIVITIS NEC (Primary Dx); ACUTE PHARYNGITIS Social History Tobacco Use Types Packs/Day Years Used Date Smoking Tobacco: Never Assessed Comments Unknown Sex and Gender Information Value Date Recorded Sex Assigned at Not on file Legal Sex Female 2:53 AM DIRECTOR TREASURER Gender Identity Not on file Sexual Orientation Not on file documented as of this encounter Plan of Treatment Not on file documented as of this encounter Visit Diagnoses Diagnosis Other conjunctivitis- Primary Acute pharyngitis documented in this encounter Care Teams Associate Faculty Relationship Specialty Start Date End Date Gage Ovalles APRN PCP - General Nurse Practitioner Family 02/08/19 documented as of this encounter
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
--- OUTSIDE RECORDS SUMMARY | 2025-01-10 19:31 | XMS_ITS | Encounter Summary ---
Author Organization [facility] Address [address] [place] [address] Care Team Providers Care Satellite Tv Technician Installer Name Role Phone Gage Ovalles APRN Primary Care Provider [phone] Encounter Details Date Type Department Care Team (Latest Contact Info) Description 03/10/2004 Outpatient Historical [facility] Medicine [place] [address] [facility] [address] [place] [address] Jenelle Monreal, PROCESS MECHANIC [address] [place] [address] FEMALE GENITAL SYMPTOMS NOS (Primary Dx); ORAL APHTHAE; B-COMPLEX DEFIC NEC Social History Tobacco Use Types Packs/Day Years Used Date Smoking Tobacco: Never Assessed Comments Unknown Sex and Gender Information Value Date Recorded Sex Assigned at Not on file Legal Sex Female 2:53 AM PRODUCTION SUPERINTENDENT Gender Identity Not on file Sexual Orientation Not on file documented as of this encounter Plan of Treatment Not on file documented as of this encounter Visit Diagnoses Diagnosis Unspecified symptom associated with female genital organs- Primary Oral aphthae Other B-complex deficiencies documented in this encounter Care Teams Satellite Tv Technician Installer Relationship Specialty Start Date End Date Gage Ovalles APRN PCP - General Nurse Practitioner Family 02/08/19 documented as of this encounter
--- OUTSIDE RECORDS SUMMARY | 2025-01-10 19:31 | XMS_ITS | Encounter Summary ---
Author Organization [facility] Address [address] [place] [address] Care Team Providers Care Rfid Systems Architect Name Role Phone Gage Ovalles APRN Primary Care Provider [phone] Encounter Details Date Type Department Care Team (Latest Contact Info) Description 06/08/2004 Outpatient Historical [address] [address] Jenelle Monreal, VARNISH BLENDER [address] [place] [address] ACUTE URI NOS (Primary Dx) Social History Tobacco Use Types Packs/Day Years Used Date Smoking Tobacco: Never Assessed Comments Unknown Sex and Gender Information Value Date Recorded Sex Assigned at Not on file Legal Sex Female 2:53 AM MYSQL DATABASE ADMINISTRATOR Gender Identity Not on file Sexual Orientation Not on file documented as of this encounter Plan of Treatment Not on file documented as of this encounter Visit Diagnoses Diagnosis Acute upper respiratory infections of unspecified site- Primary documented in this encounter Care Teams Rfid Systems Architect Relationship Specialty Start Date End Date Gage Ovalles APRN PCP - General Nurse Practitioner Family 02/08/19 documented as of this encounter
--- OUTSIDE RECORDS SUMMARY | 2025-01-10 19:31 | XMS_ITS | Encounter Summary ---
Author Organization [facility] Address [address] [place] [address] Care Team Providers Care Charge Account Clerk Name Role Phone Gage Ovalles APRN Primary Care Provider [phone] Encounter Details Date Type Department Care Team (Latest Contact Info) Description 05/08/2004 Outpatient Historical [address] [address] Jenelle Monreal, ORACLE WMS CONSULTANT [address] [place] [address] ANXIETY STATE NOS (Primary Dx) Social History Tobacco Use Types Packs/Day Years Used Date Smoking Tobacco: Never Assessed Comments Unknown Sex and Gender Information Value Date Recorded Sex Assigned at Not on file Legal Sex Female 2:53 AM NECK PINNER Gender Identity Not on file Sexual Orientation Not on file documented as of this encounter Plan of Treatment Not on file documented as of this encounter Visit Diagnoses Diagnosis Anxiety state, unspecified- Primary documented in this encounter Care Teams Charge Account Clerk Relationship Specialty Start Date End Date Gage Ovalles APRN PCP - General Nurse Practitioner Family 02/08/19 documented as of this encounter
--- OUTSIDE RECORDS SUMMARY | 2025-01-10 19:31 | XMS_ITS | Encounter Summary ---
Author Organization [facility] Address [address] [place] [address] Care Team Providers Care Portfolio Specialist Name Role Phone Gage Ovalles APRN Primary Care Provider [phone] Encounter Details Date Type Department Care Team (Latest Contact Info) Description 12/02/2003 Outpatient Historical [facility] General Surgery [address] [address] [address] [place] [address] [place] [address] [facility] [address] [place] [address] SEBACEOUS CYST (Primary Dx) Social History Tobacco Use Types Packs/Day Years Used Date Smoking Tobacco: Never Assessed Comments Unknown Sex and Gender Information Value Date Recorded Sex Assigned at Not on file Legal Sex Female 2:53 AM LEACH TANK TENDER Gender Identity Not on file Sexual Orientation Not on file documented as of this encounter Plan of Treatment Not on file documented as of this encounter Visit Diagnoses Diagnosis Sebaceous cyst- Primary documented in this encounter Care Teams Portfolio Specialist Relationship Specialty Start Date End Date Gage Ovalles APRN PCP - General Nurse Practitioner Family 02/08/19 documented as of this encounter
--- OUTSIDE RECORDS SUMMARY | 2025-01-10 19:32 | XMS_ITS | Encounter Summary ---
Author Organization [facility] Address [address] [place] [address] Care Team Providers Care Work Counselor Name Role Phone Gage Ovalles APRN Primary Care Provider [phone] Encounter Details Date Type Department Care Team (Latest Contact Info) Description 04/17/[address] [facility] Medicine [place] 104 [facility] [address] [place] [phone] Evin Head MD [address] [facility] [address] [place] [phone] ACUTE MAXILLARY SINUSITIS (Primary Dx) Social History Tobacco Use Types Packs/Day Years Used Date Smoking Tobacco: Never Assessed Comments Unknown Sex and Gender Information Value Date Recorded Sex Assigned at Not on file Legal Sex Female 2:53 AM CANE WEIGHER Gender Identity Not on file Sexual Orientation Not on file documented as of this encounter Plan of Treatment Not on file documented as of this encounter Visit Diagnoses Diagnosis Acute maxillary sinusitis- Primary documented in this encounter Care Teams Work Counselor Relationship Specialty Start Date End Date Gage Ovalles APRN PCP - General Nurse Practitioner Family 02/08/19 documented as of this encounter
--- OUTSIDE RECORDS SUMMARY | 2025-01-10 19:32 | XMS_ITS | Encounter Summary ---
Author Organization [facility] Address [address] [place] [address] Care Team Providers Care Glassine Machine Tender Name Role Phone Gage Ovalles APRN Primary Care Provider [phone] Encounter Details Date Type Department Care Team (Latest Contact Info) Description 04/08/2003 Outpatient Historical [address] [phone] Jose Guadalupe Escobar DO NO ADDRESS ON FILE OTITIS MEDIA NOS (Primary Dx); ACUTE URI NOS; CANDIDIASIS SITE NEC Social History Tobacco Use Types Packs/Day Years Used Date Smoking Tobacco: Never Assessed Comments Unknown Sex and Gender Information Value Date Recorded Sex Assigned at Not on file Legal Sex Female 2:53 AM OVERNIGHT CAREGIVER Gender Identity Not on file Sexual Orientation Not on file documented as of this encounter Plan of Treatment Not on file documented as of this encounter Visit Diagnoses Diagnosis Unspecified otitis media- Primary Acute upper respiratory infections of unspecified site Other candidiasis of other specified sites documented in this encounter Care Teams Glassine Machine Tender Relationship Specialty Start Date End Date Gage Ovalles APRN PCP - General Nurse Practitioner Family 02/08/19 documented as of this encounter
--- OUTSIDE RECORDS SUMMARY | 2025-01-10 19:32 | XMS_ITS | Encounter Summary ---
Author Organization [facility] Address [address] [place] [address] Care Team Providers Care Educator Senior Clinical Name Role Phone Gage Ovalles APRN Primary Care Provider [phone] Encounter Details Date Type Department Care Team (Late st Contact Info) Description 12/02/2003 Outpatient Historical [facility] [place] [address] [facility] [address] [place] [address] Social History Tobacco Use Types Packs/Day Years Used Date Smoking Tobacco: Never Assessed Comments Unknown Sex and Gender Information Value Date Recorded Sex Assigned at Not on file Legal Sex Female 2:53 AM FARM 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
--- OUTSIDE RECORDS SUMMARY | 2025-01-10 19:32 | XMS_ITS | Encounter Summary ---
Author Organization [facility] Address [address] [place] [address] Care Team Providers Care Crib Pad Maker Name Role Phone Gage Ovalles APRN Primary Care Provider [phone] Encounter Details Date Type Department Care Team (Latest Contact Info) Description 11/26/2003 Outpatient [facility] General Surgery [address] [address] [address] [place] [address] [place] [address] [facility] [address] [place] [address] SEBACEOUS CYST (Primary Dx) Social History Tobacco Use Types Packs/Day Years Used Date Smoking Tobacco: Never Assessed Comments Unknown Sex and Gender Information Value Date Recorded Sex Assigned at Not on file Legal Sex Female 2:53 AM GETTER OPERATOR Gender Identity Not on file Sexual Orientation Not on file documented as of this encounter Plan of Treatment Not on file documented as of this encounter Visit Diagnoses Diagnosis Sebaceous cyst- Primary documented in this encounter Care Teams Crib Pad Maker Relationship Specialty Start Date End Date Gage Ovalles APRN PCP - General Nurse Practitioner Family 02/08/19 documented as of this encounter
--- OUTSIDE RECORDS SUMMARY | 2025-01-10 19:32 | XMS_ITS | Encounter Summary ---
Author Organization [facility] Address [address] [place] [address] Care Team Providers Care Manager Enrollment Name Role Phone Gage Ovalles APRN Primary Care Provider [phone] Encounter Details Date Type Department Care Team (Late st Contact Info) Description 04/03/2007 Outpatient Historical [facility] Plastic Surgery [address] [place] [address] Matt Roca MD [address] [place] [address] Follow-Up Examination, Following Unspecified Surgery (Primary Dx) Social History Tobacco Use Types Packs/Day Years Used Date Smoking Tobacco: Never Assessed Comments Unknown Sex and Gender Information Value Date Recorded Sex Assigned at Not on file Legal Sex Female 2:53 AM METAL CHECKER Gender Identity Not on file Sexual Orientation Not on file documented as of this encounter Plan of Treatment Not on file documented as of this encounter Visit Diagnoses Diagnosis Follow-up examination, following unspecified surgery- Primary documented in this encounter Care Teams Manager Enrollment Relationship Specialty Start Date End Date Gage Ovalles APRN PCP - General Nurse Practitioner Family 02/08/19 documented as of this encounter
--- OUTSIDE RECORDS SUMMARY | 2025-01-10 19:32 | XMS_ITS | Encounter Summary ---
Author Organization [facility] Address [address] [place] [address] Care Team Providers Care Bulb Assembler Name Role Phone Gage Ovalles APRN Primary Care Provider [phone] Encounter Details Date Type Department Care Team (Latest Contact Info) Description 03/21/2003 Outpatient Historical [facility] Medicine [place] [address] [phone] Jenelle Monreal, BUILDING MATERIALS SALES ATTENDANT [address] [place] [phone] ABNORMAL WEIGHT GAIN (Primary Dx) Social History Tobacco Use Types Packs/Day Years Used Date Smoking Tobacco: Never Assessed Comments Unknown Sex and Gender Information Value Date Recorded Sex Assigned at Not on file Legal Sex Female 2:53 AM COMMERCIAL REAL ESTATE APPRAISER Gender Identity Not on file Sexual Orientation Not on file documented as of this encounter Plan of Treatment Not on file documented as of this encounter Visit Diagnoses Diagnosis Abnormal weight gain- Primary documented in this encounter Care Teams Bulb Assembler Relationship Specialty Start Date End Date Gage Ovalles APRN PCP - General Nurse Practitioner Family 02/08/19 documented as of this encounter
--- OUTSIDE RECORDS SUMMARY | 2025-01-10 19:32 | XMS_ITS | Encounter Summary ---
Author Organization [facility] Address [address] [place] [address] Care Team Providers Care Risk Control Director Name Role Phone Gage Ovalles APRN Primary Care Provider [phone] Encounter Details Date Type Department Care Team (Latest Contact Info) Description 04/01/2003 Outpatient Historical [address] [phone] Jose Guadalupe Escobar DO NO ADDRESS ON FILE INFEC OTITIS EXTERNA NOS (Primary Dx) Social History Tobacco Use Types Packs/Day Years Used Date Smoking Tobacco: Never Assessed Comments Unknown Sex and Gender Information Value Date Recorded Sex Assigned at Not on file Legal Sex Female 2:53 AM CHILD PSYCHIATRIST Gender Identity Not on file Sexual Orientation Not on file documented as of this encounter Plan of Treatment Not on file documented as of this encounter Visit Diagnoses Diagnosis Infective otitis externa, unspecified- Primary documented in this encounter Care Teams Risk Control Director Relationship Specialty Start Date End Date Gage Ovalles APRN PCP - General Nurse Practitioner Family 02/08/19 documented as of this encounter
--- OUTSIDE RECORDS SUMMARY | 2025-01-10 19:32 | XMS_ITS | Encounter Summary ---
Author Organization [facility] Address [address] [place] [address] Care Team Providers Care Ornamental Rail Installer Name Role Phone Gage Ovalles APRN Primary Care Provider [phone] Encounter Details Date Type Department Care Team (Latest Contact Info) Description 04/22/2003 Outpatient Historical [facility] [address] [place] [address] Evin Head MD [address] [facility] 200 [place] [phone] ACUTE BRONCHITIS (Primary Dx) Social History Tobacco Use Types Packs/Day Years Used Date Smoking Tobacco: Never Assessed Comments Unknown Sex and Gender Information Value Date Recorded Sex Assigned at Not on file Legal Sex Female 2:53 AM BOTTLE HOUSE PUMPER Gender Identity Not on file Sexual Orientation Not on file documented as of this encounter Plan of Treatment Not on file documented as of this encounter Visit Diagnoses Diagnosis Acute bronchitis- Primary documented in this encounter Care Teams Ornamental Rail Installer Relationship Specialty Start Date End Date Gage Ovalles APRN PCP - General Nurse Practitioner Family 02/08/19 documented as of this encounter
--- OUTSIDE RECORDS SUMMARY | 2025-01-10 19:32 | XMS_ITS | Encounter Summary ---
Author Organization [facility] Address [address] [place] [address] Care Team Providers Care Deckhand Sponge Boat Name Role Phone Gage Ovalles APRN Primary Care Provider [phone] Encounter Details Date Type Department Care Team (Latest Contact Info) Description 04/06/2007 Outpatient Historical [facility] Medicine [place] [address] [phone] Jenelle Monreal, MANAGER RISK MANAGEMENT [address] [place] [address] Restless Legs Syndrome (RLS) (Primary Dx) Social History Tobacco Use Types Packs/Day Years Used Date Smoking Tobacco: Never Assessed Comments Unknown Sex and Gender Information Value Date Recorded Sex Assigned at Not on file Legal Sex Female 2:53 AM NETWORK SYSTEMS ADMINISTRATOR Gender Identity Not on file Sexual Orientation Not on file documented as of this encounter Plan of Treatment Not on file documented as of this encounter Visit Diagnoses Diagnosis Restless legs syndrome (RLS)- Primary documented in this encounter Care Teams Deckhand Sponge Boat Relationship Specialty Start Date End Date Gage Ovalles APRN PCP - General Nurse Practitioner Family 02/08/19 documented as of this encounter
--- OUTSIDE RECORDS SUMMARY | 2025-01-10 19:32 | XMS_ITS | Encounter Summary ---
Author Organization [facility] Address [address] [place] [address] Care Team Providers Care Sales Support Assistant Name Role Phone Gage Ovalles APRN Primary Care Provider [phone] Encounter Details Date Type Department Care Team (Late st Contact Info) Description 04/17/2007 Outpatient Historical [facility] JOSECase Mir [place] [address] [place] [address] Social History Tobacco Use Types Packs/Day Years Used Date Smoking Tobacco: Never Assessed Comments Unknown Sex and Gender Information Value Date Recorded Sex Assigned at Not on file Legal Sex Female 2:53 AM DELIVERY CONSULTANT Gender Identity Not on file Sexual Orientation Not on file documented as of this encounter Plan of Treatment Not on file documented as of this encounter Visit Diagnoses Not on filedocumented in this encounter Care Teams Sales Support Assistant Relationship Specialty Start Date End Date Gage Ovalles APRN PCP - General Nurse Practitioner Family 02/08/19 documented as of this encounter
--- OUTSIDE RECORDS SUMMARY | 2025-01-10 19:32 | XMS_ITS | Encounter Summary ---
Author Organization [facility] Address [address] [place] [address] Care Team Providers Care Senior Control Systems Engineer Name Role Phone Gage Ovalles APRN Primary Care Provider [phone] Encounter Details Date Type Department Care Team (Latest Contact Info) Description 03/21/2003 Outpatient Historical [facility] Medicine [address] [address] Mellissa Collier MD NO ADDRESS ON FILE Hypoactive sexual desire (Primary Dx); ABNORMAL WEIGHT GAIN; HEADACHE Social History Tobacco Use Types Packs/Day Years Used Date Smoking Tobacco: Never Assessed Comments Unknown Sex and Gender Information Value Date Recorded Sex Assigned at Not on file Legal Sex Female 2:53 AM RESOURCING ADVISOR Gender Identity Not on file Sexual Orientation Not on file documented as of this encounter Plan of Treatment Not on file documented as of this encounter Visit Diagnoses Diagnosis Hypoactive sexual desire- Primary Hypoactive sexual desire disorder Abnormal weight gain Headache(784.0) Headache documented in this encounter Care Teams Senior Control Systems Engineer Relationship Specialty Start Date End Date Gage Ovalles APRN PCP - General Nurse Practitioner Family 02/08/19 documented as of this encounter
--- OUTSIDE RECORDS SUMMARY | 2025-01-10 19:32 | XMS_ITS | Encounter Summary ---
Author Organization [facility] Address [address] [place] [facility] [place] [address] Care Team Providers Care Tow Truck Operator Name Role Phone Gage Ovalles APRN Primary Care Provider [phone] Encounter Details Date Type Department Care Team (Late st Contact Info) Description 10/11/2007 Outpatient Historical [facility] Marko Tan MD NO ADDRESS ON FILE Social History Tobacco Use Types Packs/Day Years Used Date Smoking Tobacco: Never Assessed Comments Unknown Sex and Gender Information Value Date Recorded Sex Assigned at Not on file Legal Sex Female 2:53 AM COUPLES THERAPIST Gender Identity Not on file Sexual Orientation Not on file documented as of this encounter Plan of Treatment Not on file documented as of this encounter Procedures Procedure Name Priority Date/Time Associated Diagnosis Comments MRI CERVICAL WO CONTRAST Routine 10/11/2007 1:44 PM CDT documented in this encounter Results * MRI CERVICAL WO CONTRAST (10/11/2007 1:44 PM CDT) Anatomical Region Laterality Modality Spine Other 10/11/2007 1:44 PM CDT Narrative 10/11/2007 1:44 PM CDT Multiplanar imaging of the cervical spine was performed without IV gadolinium. History: Neck pain and headaches. No comparison study is available. No significant focal bony lesion or acute fracture is seen. Alignment is normal. Spinal cord is unremarkable. Discs are within normal limits and no spinal stenosis or significant foraminal narrowing is identified. Impression: Unremarkable exam. - Dictated By: Jaison Winkler M.D. Electronically Signed By: Jaison Winkler M.D. Date Signed: 10/12/07 SDM Procedure Note Jaison Winkler W - 10/12/2007 Multiplanar imaging of the cervical spine was performed without IVgadolinium. History: Neck pain and headaches. No comparison study is available. No significant focal bony lesion or acute fracture is seen. Alignment isnormal. Spinal cord is unremarkable. Discs are within normal limits and no spinal stenosis orsignificant foraminal narrowing is identified. Impression: Unremarkable exam. - Dictated By: Jaison Winkler M.D. Electronically Signed By: Jaison Winkler M.D. Date Signed: 10/12/07 SDM us Marko Tan MD MR ORDERABLES Final Result documented in this encounter Visit Diagnoses Not on filedocumented in this encounter Care Teams Tow Truck Operator Relationship Specialty Start Date End Date Gage Ovalles, YONG PCP - General Nurse Practitioner Family 02/08/19 documented as of this encounter
--- OUTSIDE RECORDS SUMMARY | 2025-01-10 19:32 | XMS_ITS | Encounter Summary ---
Author Organization [facility] Address [address] [place] [address] Care Team Providers Care Ear Mold Laboratory Technician Name Role Phone Gage Ovalles APRN Primary Care Provider [phone] Encounter Details Date Type Department Care Team (Latest Contact Info) Description 10/30/[address] [address] Jenelle Monreal, TAXI SERVICER [address] [place] [phone] ANXIETY STATE NOS (Primary Dx) Social History Tobacco Use Types Packs/Day Years Used Date Smoking Tobacco: Never Assessed Comments Unknown Sex and Gender Information Value Date Recorded Sex Assigned at Not on file Legal Sex Female 2:53 AM APARTMENT MAINTENANCE SUPERVISOR Gender Identity Not on file Sexual Orientation Not on file documented as of this encounter Plan of Treatment Not on file documented as of this encounter Visit Diagnoses Diagnosis Anxiety state, unspecified- Primary documented in this encounter Care Teams Ear Mold Laboratory Technician Relationship Specialty Start Date End Date Gage Ovalles APRN PCP - General Nurse Practitioner Family 02/08/19 documented as of this encounter
--- OUTSIDE RECORDS SUMMARY | 2025-01-10 19:32 | XMS_ITS | Encounter Summary ---
Author Organization [facility] Address [address] [place] [address] Care Team Providers Care Special Makeup Fx Artist Instructor Name Role Phone Gage Ovalles APRN Primary Care Provider [phone] Encounter Details Date Type Department Care Team (Latest Contact Info) Description 10/14/2003 Outpatient Historical [address] [address] Jenelle Monreal, CARBON PASTE MIXER OPERATOR [address] [place] [phone] ACUTE URI NOS (Primary Dx); ORAL APHTHAE Social History Tobacco Use Types Packs/Day Years Used Date Smoking Tobacco: Never Assessed Comments Unknown Sex and Gender Information Value Date Recorded Sex Assigned at Not on file Legal Sex Female 2:53 AM MEDICAL AFFAIRS MANAGER Gender Identity Not on file Sexual Orientation Not on file documented as of this encounter Plan of Treatment Not on file documented as of this encounter Visit Diagnoses Diagnosis Acute upper respiratory infections of unspecified site- Primary Oral aphthae documented in this encounter Care Teams Special Makeup Fx Artist Instructor Relationship Specialty Start Date End Date Gage Ovalles APRN PCP - General Nurse Practitioner Family 02/08/19 documented as of this encounter
--- OUTSIDE RECORDS SUMMARY | 2025-01-10 19:32 | XMS_ITS | Encounter Summary ---
Author Organization [facility] Address [address] [place] [address] Care Team Providers Care Sash Clamp Operator Name Role Phone Gage Ovalles APRN Primary Care Provider [phone] Encounter Details Date Type Department Care Team (Late st Contact Info) Description 04/18/2007 Inpatient Historical [facility] IN BED Thaddeus Jolly MD [address] [address] Dysmenorrhea (Primary Dx) Social History Tobacco Use Types Packs/Day Years Used Date Smoking Tobacco: Never Assessed Comments Unknown Sex and Gender Information Value Date Recorded Sex Assigned at Not on file Legal Sex Female 2:53 AM PHARMACY OPERATIONS COORDINATOR Gender Identity Not on file Sexual Orientation Not on file documented as of this encounter Plan of Treatment Not on file documented as of this encounter Procedures Procedure Name Priority Date/Time Associated Diagnosis Comments CBC WITHOUT DIFFERENTIAL Routine 04/19/2007 6:14 AM CDT documented in this encounter Results * (ABNORMAL) CBC WITHOUT DIFFERENTIAL (04/19/2007 6:14 AM CDT) WBC 16.7(H) 4.5 - 11.0 K/ul INTERFACE SYSTEM RBC 3.95(L) 4.20 - 5.40 Mil/ul INTERFACE SYSTEM HEMOGLOBIN 12.2 12.0 - 16.0 g/dL INTERFACE SYSTEM HEMATOCRIT 36.7 36.0 - 46.0 % INTERFACE SYSTEM MCV 92.9 84.0 - 103.0 Fl INTERFACE SYSTEM MCH 30.9 27.0 - 34.0 pg INTERFACE SYSTEM MCHC 33.2 30.0 - 35.0 g/dL INTERFACE SYSTEM RDW 14.0 11.0 - 14.5 % INTERFACE SYSTEM PLATELETS 380 140 - 440 K/ul INTERFACE SYSTEM MPV 10.4 8.9 - 12.8 Fl INTERFACE SYSTEM NEUTROPHILS 49.2 42.2 - 75.2 % INTERFACE SYSTEM LYMPHOCYTES 36.1 24.0 - 44.0 % INTERFACE SYSTEM MONOCYTES 13.8(H) 2.0 - 10.0 % INTERFACE SYSTEM EOSINOPHILS 0.7 0.0 - 7.0 % INTERFACE SYSTEM BASOPHILS 0.2 0.0 - 1.0 % INTERFACE SYSTEM NEUTROPHIL ABSOLUTE 8.2(H) 2.0 - 8.0 K/ul INTERFACE SYSTEM LYMPHOCYTE ABSOLUTE 6.0(H) 1.2 - 4.0 K/ul INTERFACE SYSTEM MONOCYTE ABSOLUTE 2.3(H) 0.1 - 0.6 K/ul INTERFACE SYSTEM EOSINOPHIL ABSOLUTE 0.1 0.0 - 0.7 K/ul INTERFACE SYSTEM BASOPHILS ABSOLUTE 0.0 0.0 - 0.2 K/ul INTERFACE SYSTEM 04/19/2007 6:14 AM CDT us Thaddeus Jolly MD HEMATOLOGY ORDERABLES Edited INTERFACE SYSTEM Refer to clinic/hospital department documented in this encounter Visit Diagnoses Diagnosis Dysmenorrhea- Primary documented in this encounter Care Teams Sash Clamp Operator Relationship Specialty Start Date End Date Gage Ovalles, RECREATION ADVISER PCP - General Nurse Practitioner Family 02/08/19 documented as of this encounter
--- OUTSIDE RECORDS SUMMARY | 2025-01-10 19:32 | XMS_ITS | Encounter Summary ---
Author Organization [facility] Address [address] [place]: Epic Prelude ADT ELDA GARY [address] Care Team Providers Care Page Designer Name Role Phone Josr Gage BEACH Primary Care Provider [phone] Encounter Details Date Type Department Care Team (Late st Contact Info) Description 10/18/2007 Outpatient Historical Jenelle Monreal, VET TECH [address] [place] [address] Social History Tobacco Use Types Packs/Day Years Used Date Smoking Tobacco: Never Assessed Comments Unknown Sex and Gender Information Value Date Recorded Sex Assigned at Not on file Legal Sex Female 2:53 AM HOME PERFORMANCE CONSULTANT Gender Identity Not on file Sexual Orientation Not on file documented as of this encounter Plan of Treatment Not on file documented as of this encounter Procedures Procedure Name Priority Date/Time Associated Diagnosis Comments PERIPHERAL BLOOD STAINED SLIDE REQUEST Routine 10/18/2007 10:29 AM CDT documented in this encounter Results * PERIPHERAL BLOOD STAINED SLIDE REQUEST (10/18/2007 10:29 AM CDT) PERIPHERAL BLOOD SMEAR REVIEW Smear Reviewed [facility] Comment: Absolute lymphocytosis is present. The lymphocyte morphology is most consistent with a reactive process. No thrombocytopenia. No blasts observed. Interpreted by: Sallie Sen 4--08 Blood specimen (specimen) 10/18/2007 10:29 AM CDT 10/22/2007 10:29 AM CDT us Jenelle Monreal VET TECH HEMATOLOGY ORDERABLES Final Result Performing Organization Address City/State/[facility] de Phone Number [facility] [address] [place] [address] documented in this encounter Visit Diagnoses Not on filedocumented in this encounter Care Teams Page Designer Relationship Specialty Start Date End Date Gage Ovalles, INLETTER PCP - General Nurse Practitioner Family 02/08/19 documented as of this encounter
--- OUTSIDE RECORDS SUMMARY | 2025-01-10 19:32 | XMS_ITS | Encounter Summary ---
Author Organization [facility] Address [address] [place] [address] Care Team Providers Care Healthcare Marketer Name Role Phone Gage Ovalles APRN Primary Care Provider [phone] Encounter Details Date Type Department Care Team (Late st Contact Info) Description 09/20/2007 Outpatient [facility] [address] [place] [address] Marko Tan MD NO ADDRESS ON FILE Social History Tobacco Use Types Packs/Day Years Used Date Smoking Tobacco: Never Assessed Comments Unknown Sex and Gender Information Value Date Recorded Sex Assigned at Not on file Legal Sex Female 2:53 AM VENETIAN BLIND MACHINE OPERATOR Gender Identity Not on file Sexual Orientation Not on file documented as of this encounter Plan of Treatment Not on file documented as of this encounter Visit Diagnoses Not on filedocumented in this encounter Care Teams Healthcare Marketer Relationship Specialty Start Date End Date Gage Ovalles APRN PCP - General Nurse Practitioner Family 02/08/19 documented as of this encounter
--- OUTSIDE RECORDS SUMMARY | 2025-01-10 19:32 | XMS_ITS | Encounter Summary ---
Author Organization [facility] Address [address] [place] [address] Care Team Providers Care Electrician Front Name Role Phone Gage Ovalles APRN Primary Care Provider [phone] Encounter Details Date Type Department Care Team (Latest Contact Info) Description 05/19/2007 Outpatient Historical [facility] Medicine [address] [address] Jose Guadalupe Escobar DO NO ADDRESS ON FILE Other B-Complex Deficiencies (Primary Dx); Vaccine for Influenza Social History Tobacco Use Types Packs/Day Years Used Date Smoking Tobacco: Never Assessed Comments Unknown Sex and Gender Information Value Date Recorded Sex Assigned at Not on file Legal Sex Female 2:53 AM SERVICE 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
--- OUTSIDE RECORDS SUMMARY | 2025-01-10 19:32 | XMS_ITS | Encounter Summary ---
Author Organization [facility] Address [address] [place] [address] Care Team Providers Care Expense Clerk Name Role Phone Gage Ovalles APRN Primary Care Provider [phone] Encounter Details Date Type Department Care Team (Latest Contact Info) Description 05/04/2002 Outpatient Historical [facility] [address] [phone] Jose Guadalupe Escobar DO NO ADDRESS ON FILE DIZZINESS AND GIDDINESS (Primary Dx); PREG STATE, INCIDENTAL; HEADACHE Social History Tobacco Use Types Packs/Day Years Used Date Smoking Tobacco: Never Assessed Comments Unknown Sex and Gender Information Value Date Recorded Sex Assigned at Not on file Legal Sex Female 2:53 AM SPECIAL DELIVERY MESSENGER Gender Identity Not on file Sexual Orientation Not on file documented as of this encounter Plan of Treatment Not on file documented as of this encounter Visit Diagnoses Diagnosis Dizziness and giddiness- Primary state, incidental Headache(784.0) Headache documented in this encounter Care Teams Expense Clerk Relationship Specialty Start Date End Date Gage Ovalles APRN PCP - General Nurse Practitioner Family 02/08/19 documented as of this encounter
--- OUTSIDE RECORDS SUMMARY | 2025-01-10 19:32 | XMS_ITS | Encounter Summary ---
Author Organization [facility] Address [address] [place] [address] Care Team Providers Care Snowblower Mechanic Name Role Phone Gage Ovalles APRN Primary Care Provider [phone] Encounter Details Date Type Department Care Team (Late st Contact Info) Description 06/22/2007 Outpatient Historical [address] [address] Jenelle Monreal, FORM CARPENTER [address] [place] [address] Social History Tobacco Use Types Packs/Day Years Used Date Smoking Tobacco: Never Assessed Comments Unknown Sex and Gender Information Value Date Recorded Sex Assigned at Not on file Legal Sex Female 2:53 AM QUALITY CONTROL MICROBIOLOGY SUPERVISOR Gender Identity Not on file Sexual Orientation Not on file documented as of this encounter Plan of Treatment Not on file documented as of this encounter Visit Diagnoses Not on filedocumented in this encounter Care Teams Snowblower Mechanic Relationship Specialty Start Date End Date Gage Ovalles APRN PCP - General Nurse Practitioner Family 02/08/19 documented as of this encounter
--- OUTSIDE RECORDS SUMMARY | 2025-01-10 19:32 | XMS_ITS | Encounter Summary ---
Author Organization [facility] Address [address] [place] [address] Care Team Providers Care Environmental Intern Name Role Phone Gage Ovalles APRN Primary Care Provider [phone] Encounter Details Date Type Department Care Team (Latest Contact Info) Description 07/24/2003 Outpatient Historical [facility] [address] [place] [address] Evin Head MD [address] [facility] [address] [place] [phone] ELB/FOREARM/WRST INJURY NOS (Primary Dx) Social History Tobacco Use Types Packs/Day Years Used Date Smoking Tobacco: Never Assessed Comments Unknown Sex and Gender Information Value Date Recorded Sex Assigned at Not on file Legal Sex Female 2:53 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
--- OUTSIDE RECORDS SUMMARY | 2025-01-10 19:32 | XMS_ITS | Encounter Summary ---
Author Organization [facility] Address [address] [place] [address] Care Team Providers Care Packaging Specialist Name Role Phone Gage Ovalles APRN Primary Care Provider [phone] Encounter Details Date Type Department Care Team (Latest Contact Info) Description 01/21/2003 Outpatient Historical [facility] [address] [place] [address] Evin Head MD [address] [facility] [address] [place] [phone] ACUTE URI NOS (Primary Dx); OTHER MALAISE AND FATIGUE Social History Tobacco Use Types Packs/Day Years Used Date Smoking Tobacco: Never Assessed Comments Unknown Sex and Gender Information Value Date Recorded Sex Assigned at Not on file Legal Sex Female 2:53 AM TECHNOLOGY RECRUITER Gender Identity Not on file Sexual Orientation Not on file documented as of this encounter Plan of Treatment Not on file documented as of this encounter Visit Diagnoses Diagnosis Acute upper respiratory infections of unspecified site- Primary Other malaise and fatigue documented in this encounter Care Teams Packaging Specialist Relationship Specialty Start Date End Date Gage Ovalles APRN PCP - General Nurse Practitioner Family 02/08/19 documented as of this encounter
--- OUTSIDE RECORDS SUMMARY | 2025-01-10 19:32 | XMS_ITS | Encounter Summary ---
Author Organization [facility] Address [address] 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
--- OUTSIDE RECORDS SUMMARY | 2025-01-10 19:32 | XMS_ITS | Encounter Summary ---
Author Organization [facility] Address [address] [place] [address] Care Team Providers Care Pain Management Nurse Name Role Phone Gage Ovalles APRN Primary Care Provider [phone] Encounter Details Date Type Department Care Team (Late st Contact Info) Description 02/17/2007 Outpatient Historical [facility] [address] [place] [address] Matt Roca MD [address] [place] [address] Sebaceous Cyst (Primary Dx) Social History Tobacco Use Types Packs/Day Years Used Date Smoking Tobacco: Never Assessed Comments Unknown Sex and Gender Information Value Date Recorded Sex Assigned at Not on file Legal Sex Female 2:53 AM CARE PROVIDER Gender Identity Not on file Sexual Orientation Not on file documented as of this encounter Plan of Treatment Not on file documented as of this encounter Visit Diagnoses Diagnosis Sebaceous cyst- Primary documented in this encounter Care Teams Pain Management Nurse Relationship Specialty Start Date End Date Gage Ovalles APRN PCP - General Nurse Practitioner Family 02/08/19 documented as of this encounter
--- OUTSIDE RECORDS SUMMARY | 2025-01-10 19:32 | XMS_ITS | Encounter Summary ---
Author Organization [facility] Address [address] [place] [address] Care Team Providers Care Labor Relations Analyst Name Role Phone Gage Ovalles APRN Primary Care Provider [phone] Encounter Details Date Type Department Care Team (Late st Contact Info) Description 07/19/2007 Outpatient Historical [facility] Medicine [address] [address] Mellissa Collier MD NO ADDRESS ON FILE Social History Tobacco Use Types Packs/Day Years Used Date Smoking Tobacco: Never Assessed Comments Unknown Sex and Gender Information Value Date Recorded Sex Assigned at Not on file Legal Sex Female 2:53 AM FAVOR MAKER Gender Identity Not on file Sexual Orientation Not on file documented as of this encounter Plan of Treatment Not on file documented as of this encounter Visit Diagnoses Not on filedocumented in this encounter Care Teams Labor Relations Analyst Relationship Specialty Start Date End Date Gage Ovalles APRN PCP - General Nurse Practitioner Family 02/08/19 documented as of this encounter
--- OUTSIDE RECORDS SUMMARY | 2025-01-10 19:32 | XMS_ITS | Encounter Summary ---
Author Organization [facility] Address [address] [place] [address] Care Team Providers Care Vision Therapist Name Role Phone Josr Gage BEACH Primary Care Provider [phone] Encounter Details Date Type Department Care Team (Latest Contact Info) Description 04/17/2007 Outpatient Historical [facility] [address] [place] [address] [place] [address] Thaddeus Jolly MD [address] [address] Other Specified Pre-Operative Examination (Primary Dx) Social History Tobacco Use Types Packs/Day Years Used Date Smoking Tobacco: Never Assessed Comments Unknown Sex and Gender Information Value Date Recorded Sex Assigned at Not on file Legal Sex Female 2:53 AM BODY TECHNICIAN Gender Identity Not on file Sexual Orientation Not on file documented as of this encounter Plan of Treatment Not on file documented as of this encounter Procedures Procedure Name Priority Date/Time Associated Diagnosis Comments CBC WITH DIFFERENTIAL Routine 04/17/2007 1:11 PM CDT documented in this encounter Results * (ABNORMAL) CBC WITH DIFFERENTIAL (04/17/2007 1:11 PM CDT) WBC 14.5(H) 4.5 - 11.0 K/ul INTERFACE SYSTEM RBC 4.30 4.20 - 5.40 Mil/ul INTERFACE SYSTEM HEMOGLOBIN 13.3 12.0 - 16.0 g/dL INTERFACE SYSTEM HEMATOCRIT 39.8 36.0 - 46.0 % INTERFACE SYSTEM MCV 92.6 84.0 - 103.0 Fl INTERFACE SYSTEM MCH 30.9 27.0 - 34.0 pg INTERFACE SYSTEM MCHC 33.4 30.0 - 35.0 g/dL INTERFACE SYSTEM RDW 14.3 11.0 - 14.5 % INTERFACE SYSTEM PLATELETS 395 140 - 440 K/ul INTERFACE SYSTEM MPV 10.1 8.9 - 12.8 Fl INTERFACE SYSTEM NEUTROPHILS 40.4(L) 42.2 - 75.2 % INTERFACE SYSTEM LYMPHOCYTES 49.1(H) 24.0 - 44.0 % INTERFACE SYSTEM MONOCYTES 5.0 2.0 - 10.0 % INTERFA CE SYSTEM EOSINOPHILS 5.0 0.0 - 7.0 % INTERF MAHESH SYSTEM BASOPHILS 0.5 0.0 - 1.0 % INTERFAC E SYSTEM NEUTROPHIL ABSOLUTE 5.8 2.0 - 8.0 K/ul INTERFACE SYSTEM LYMPHOCYTE ABSOLUTE 7.1(H) 1.2 - 4.0 K/ul INTERFACE SYSTEM MONOCYTE ABSOLUTE 0.7(H) 0.1 - 0.6 K/ul INTERFACE SYSTEM EOSINOPHIL ABSOLUTE 0.7 0.0 - 0.7 K/ul INTERFACE SYSTEM BASOPHILS ABSOLUTE 0.1 0.0 - 0.2 K/ul INTERFACE SYSTEM PERIPHERAL BLOOD SMEAR REVIEW Automated Diff Automated Diff INTERFACE SYSTEM 04/17/2007 1:11 PM CDT us Thaddeus Jolly MD HEMATOLOGY ORDERABLES Edited INTERFACE SYSTEM Refer to clinic/hospital department documented in this encounter Visit Diagnoses Diagnosis Other specified pre-operative examination- Primary documented in this encounter Care Teams Vision Therapist Relationship Specialty Start Date End Date Gage Ovalles, YONG PCP - General Nurse Practitioner Family 02/08/19 documented as of this encounter
--- OUTSIDE RECORDS SUMMARY | 2025-01-10 19:32 | XMS_ITS | Encounter Summary ---
Author Organization [facility] Address [address] [place] [address] Care Team Providers Care Gear Tooth Grinding Machine Operator Name Role Phone Gage Ovalles APRN Primary Care Provider [phone] Encounter Details Date Type Department Care Team (Latest Contact Info) Description 04/16/2003 Outpatient Historical [facility] Medicine [address] [address] Jose Guadalupe Escobar DO NO ADDRESS ON FILE ACUTE BRONCHITIS (Primary Dx) Social History Tobacco Use Types Packs/Day Years Used Date Smoking Tobacco: Never Assessed Comments Unknown Sex and Gender Information Value Date Recorded Sex Assigned at Not on file Legal Sex Female 2:53 AM 

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
--- OUTSIDE RECORDS SUMMARY | 2025-01-10 19:32 | XMS_ITS | Encounter Summary ---
Author Organization [facility] Address [address] [place] [address] Care Team Providers Care Taxicab Starter Name Role Phone Gage Ovalles APRN Primary Care Provider [phone] Encounter Details Date Type Department Care Team (Latest Contact Info) Description 04/30/2003 Outpatient Historical [facility] Medicine [place] [address] [phone] Jenelle Monreal, SOCIAL SERVICE TECHNICIAN [address] [place] [address] ACUTE BRONCHITIS (Primary Dx) Social History Tobacco Use Types Packs/Day Years Used Date Smoking Tobacco: Never Assessed Comments Unknown Sex and Gender Information Value Date Recorded Sex Assigned at Not on file Legal Sex Female 2:53 AM 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
--- OUTSIDE RECORDS SUMMARY | 2025-01-10 19:32 | XMS_ITS | Encounter Summary ---
Author Organization [facility] Address [address] [place] [address] Care Team Providers Care Livestock Slaughterer Name Role Phone Gage Ovalles APRN Primary Care Provider [phone] Encounter Details Date Type Department Care Team (Latest Contact Info) Description 09/16/2003 Outpatient Historical [address] [address] Jenelle Monreal, SNOW REMOVER [address] [place] [address] ACUTE URI NOS (Primary Dx) Social History Tobacco Use Types Packs/Day Years Used Date Smoking Tobacco: Never Assessed Comments Unknown Sex and Gender Information Value Date Recorded Sex Assigned at Not on file Legal Sex Female 2:53 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
--- OUTSIDE RECORDS SUMMARY | 2025-01-10 19:32 | XMS_ITS | Encounter Summary ---
Author Organization [facility] Address [address] [place] [address] Care Team Providers Care Front Office Secretary Name Role Phone Gage Ovalles APRN Primary Care Provider [phone] Encounter Details Date Type Department Care Team (Latest Contact Info) Description 01/23/2003 Outpatient Historical [facility] [address] [place] [address] Mellissa Collier MD NO ADDRESS ON FILE Excessive menstruation (Primary Dx); SYNCOPE AND COLLAPSE Social History Tobacco Use Types Packs/Day Years Used Date Smoking Tobacco: Never Assessed Comments Unknown Sex and Gender Information Value Date Recorded Sex Assigned at Not on file Legal Sex Female 2:53 AM ACTUARIAL INTERN Gender Identity Not on file Sexual Orientation Not on file documented as of this encounter Plan of Treatment Not on file documented as of this encounter Visit Diagnoses Diagnosis Excessive menstruation- Primary Excessive or frequent menstruation Syncope and collapse documented in this encounter Care Teams Front Office Secretary Relationship Specialty Start Date End Date Gage Ovalles APRN PCP - General Nurse Practitioner Family 02/08/19 documented as of this encounter
--- OUTSIDE RECORDS SUMMARY | 2025-01-10 19:32 | XMS_ITS | Encounter Summary ---
Author Organization [facility] Address [address] [place] [address] Care Team Providers Care Boilermaker Helper Name Role Phone Gage Ovalles APRN Primary Care Provider [phone] Encounter Details Date Type Department Care Team (Latest Contact Info) Description 12/24/2002 Outpatient Historical [facility] [address] [place] [phone] Jose Guadalupe Escobar DO NO ADDRESS ON FILE OB SURG COMPL NEC-UNSPEC (Primary Dx) Social History Tobacco Use Types Packs/Day Years Used Date Smoking Tobacco: Never Assessed Comments Unknown Sex and Gender Information Value Date Recorded Sex Assigned at Not on file Legal Sex Female 2:53 AM HOUSE SUPERINTENDENT Gender Identity Not on file Sexual Orientation Not on file documented as of this encounter Plan of Treatment Not on file documented as of this encounter Visit Diagnoses Diagnosis Other complication of obstetrical surgical wounds, unspecified as to episode of care- Primary documented in this encounter Care Teams Boilermaker Helper Relationship Specialty Start Date End Date Gage Ovalles APRN PCP - General Nurse Practitioner Family 02/08/19 documented as of this encounter
--- OUTSIDE RECORDS SUMMARY | 2025-01-10 19:32 | XMS_ITS | Encounter Summary ---
Author Organization [facility] Address [address] [place] [address] Care Team Providers Care Plastic Frame Inserter Name Role Phone Gage Ovalles APRN Primary Care Provider [phone] Encounter Details Date Type Department Care Team (Latest Contact Info) Description 06/26/2003 Outpatient Historical [address] [phone] Jenelle Monreal, VISUAL TRAINING AIDE [address] [place] [phone] OTHER MALAISE AND FATIGUE (Primary Dx) Social History Tobacco Use Types Packs/Day Years Used Date Smoking Tobacco: Never Assessed Comments Unknown Sex and Gender Information Value Date Recorded Sex Assigned at Not on file Legal Sex Female 2:53 AM FRUIT RAISER Gender Identity Not on file Sexual Orientation Not on file documented as of this encounter Plan of Treatment Not on file documented as of this encounter Visit Diagnoses Diagnosis Other malaise and fatigue- Primary documented in this encounter Care Teams Plastic Frame Inserter Relationship Specialty Start Date End Date Gage Ovalles APRN PCP - General Nurse Practitioner Family 02/08/19 documented as of this encounter
--- OUTSIDE RECORDS SUMMARY | 2025-01-10 19:32 | XMS_ITS | Encounter Summary ---
Author Organization [facility] Address [address] [place] [address] Care Team Providers Care Rose Grower Name Role Phone Gage Ovalles APRN Primary Care Provider [phone] Encounter Details Date Type Department Care Team (Late st Contact Info) Description 06/06/2007 Outpatient Historical [facility] Medicine [place] [address] [phone] Jenelle Monreal, GEOLOGICAL E LOGGER [address] [place] [phone] Social History Tobacco Use Types Packs/Day Years Used Date Smoking Tobacco: Never Assessed Comments Unknown Sex and Gender Information Value Date Recorded Sex Assigned at Not on file Legal Sex Female 2:53 AM PASTE MIXER Gender Identity Not on file Sexual Orientation Not on file documented as of this encounter Plan of Treatment Not on file documented as of this encounter Visit Diagnoses Not on filedocumented in this encounter Care Teams Rose Grower Relationship Specialty Start Date End Date Gage Ovalles APRN PCP - General Nurse Practitioner Family 02/08/19 documented as of this encounter
--- OUTSIDE RECORDS SUMMARY | 2025-01-10 19:32 | XMS_ITS | Encounter Summary ---
Author Organization [facility] Address [address] [place] [address] Care Team Providers Care Digital Strategy Manager Name Role Phone Gage Ovalles APRN Primary Care Provider [phone] Encounter Details Date Type Department Care Team (Latest Contact Info) Description 01/31/2003 Outpatient Historical [facility] Medicine [address] [address] Mellissa Collier MD NO ADDRESS ON FILE ACUTE BRONCHITIS (Primary Dx); LUMP OR MASS IN BREAST Social History Tobacco Use Types Packs/Day Years Used Date Smoking Tobacco: Never Assessed Comments Unknown Sex and Gender Information Value Date Recorded Sex Assigned at Not on file Legal Sex Female 2:53 AM NATIONAL PARK RANGER Gender Identity Not on file Sexual Orientation Not on file documented as of this encounter Plan of Treatment Not on file documented as of this encounter Visit Diagnoses Diagnosis Acute bronchitis- Primary Lump or mass in breast documented in this encounter Care Teams Digital Strategy Manager Relationship Specialty Start Date End Date Gage Ovalles APRN PCP - General Nurse Practitioner Family 02/08/19 documented as of this encounter
--- OUTSIDE RECORDS SUMMARY | 2025-01-10 19:32 | XMS_ITS | Encounter Summary ---
Author Organization [facility] Address [address] [place] [address] Care Team Providers Care Hot Die Picker Name Role Phone Gage Ovalles APRN Primary Care Provider [phone] Encounter Details Date Type Department Care Team (Latest Contact Info) Description 03/28/2007 Outpatient Historical [facility] Medicine [place] [address] [phone] Jenelle Monreal, ORAL HYGIENIST [address] [place] [address] Unspecified Vaginitis and Vulvovaginitis (Primary Dx); Restless Legs Syndrome (RLS) Social History Tobacco Use Types Packs/Day Years Used Date Smoking Tobacco: Never Assessed Comments Unknown Sex and Gender Information Value Date Recorded Sex Assigned at Not on file Legal Sex Female 2:53 AM ENVIRONMENTAL MONITORING TECHNICIAN Gender Identity Not on file Sexual Orientation Not on file documented as of this encounter Plan of Treatment Not on file documented as of this encounter Visit Diagnoses Diagnosis Vaginitis and vulvovaginitis, unspecified- Primary Restless legs syndrome (RLS) documented in this encounter Care Teams Hot Die Picker Relationship Specialty Start Date End Date Gage Ovalles APRN PCP - General Nurse Practitioner Family 02/08/19 documented as of this encounter
--- OUTSIDE RECORDS SUMMARY | 2025-01-10 19:32 | XMS_ITS | Encounter Summary ---
Author Organization [facility] Address [address] [place] [address] Care Team Providers Care Insert Molding Operator Name Role Phone Gage Ovalles APRN Primary Care Provider [phone] Encounter Details Date Type Department Care Team (Late st Contact Info) Description 05/30/2007 Outpatient Historical [facility] Medicine [place] [address] [phone] Jenelle Monreal, RETAIL SEASONAL SPECIALIST [address] [place] [phone] Social History Tobacco Use Types Packs/Day Years Used Date Smoking Tobacco: Never Assessed Comments Unknown Sex and Gender Information Value Date Recorded Sex Assigned at Not on file Legal Sex Female 2:53 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
--- OUTSIDE RECORDS SUMMARY | 2025-01-10 19:32 | XMS_ITS | Encounter Summary ---
Author Organization [facility] Address [address] [place] [address] Care Team Providers Care First Aid Instructor Name Role Phone Gage Ovalles APRN Primary Care Provider [phone] Encounter Details Date Type Department Care Team (Latest Contact Info) Description 04/30/2003 Outpatient Historical [facility] Medicine [address] [phone] Jose Guadalupe Escobar DO NO ADDRESS ON FILE ACUTE BRONCHITIS (Primary Dx); HYPOGLYCEMIA NOS Social History Tobacco Use Types Packs/Day Years Used Date Smoking Tobacco: Never Assessed Comments Unknown Sex and Gender Information Value Date Recorded Sex Assigned at Not on file Legal Sex Female 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
--- OUTSIDE RECORDS SUMMARY | 2025-01-10 19:32 | XMS_ITS | Encounter Summary ---
Author Organization [facility] Address [address] [place] [address] Care Team Providers Care Belt Cleaner Name Role Phone Gage Ovalles APRN Primary Care Provider [phone] Encounter Details Date Type Department Care Team (Latest Contact Info) Description 07/17/2003 Outpatient Historical [facility] [address] [place] [phone] Jose Guadalupe Escobar DO NO ADDRESS ON FILE BACKACHE NOS (Primary Dx) Social History Tobacco Use Types Packs/Day Years Used Date Smoking Tobacco: Never Assessed Comments Unknown Sex and Gender Information Value Date Recorded Sex Assigned at Not on file Legal Sex Female 2:53 AM 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
--- OUTSIDE RECORDS SUMMARY | 2025-01-10 19:32 | XMS_ITS | Encounter Summary ---
Author Organization [facility] Address [address] [place] [address] Care Team Providers Care Waste Minimization Technician Name Role Phone Gage Ovalles APRN Primary Care Provider [phone] Encounter Details Date Type Department Care Team (Latest Contact Info) Description 11/18/2003 Outpatient Historical [address] [phone] Jenelle Monreal, DIESEL ENGINE FITTER [address] [place] [phone] SEBACEOUS CYST (Primary Dx) Social History Tobacco Use Types Packs/Day Years Used Date Smoking Tobacco: Never Assessed Comments Unknown Sex and Gender Information Value Date Recorded Sex Assigned at Not on file Legal Sex Female 2:53 AM WELDER 2ND SHIFT Gender Identity Not on file Sexual Orientation Not on file documented as of this encounter Plan of Treatment Not on file documented as of this encounter Visit Diagnoses Diagnosis Sebaceous cyst- Primary documented in this encounter Care Teams Waste Minimization Technician Relationship Specialty Start Date End Date Gage Ovalles APRN PCP - General Nurse Practitioner Family 02/08/19 documented as of this encounter
--- OUTSIDE RECORDS SUMMARY | 2025-01-10 19:32 | XMS_ITS | Encounter Summary ---
Author Organization [facility] Address [address] [place] [address] Care Team Providers Care Crusher Setter Name Role Phone Gage Ovalles APRN Primary Care Provider [phone] Encounter Details Date Type Department Care Team (Latest Contact Info) Description 04/03/[address] [facility] Medicine [address] [phone] Jose Guadalupe Escobar DO NO ADDRESS ON FILE INFEC OTITIS EXTERNA NOS (Primary Dx) Social History Tobacco Use Types Packs/Day Years Used Date Smoking Tobacco: Never Assessed Comments Unknown Sex and Gender Information Value Date Recorded Sex Assigned at Not on file Legal Sex Female 2:53 AM DIGITAL INTERN Gender Identity Not on file Sexual Orientation Not on file documented as of this encounter Plan of Treatment Not on file documented as of this encounter Visit Diagnoses Diagnosis Infective otitis externa, unspecified- Primary documented in this encounter Care Teams Crusher Setter Relationship Specialty Start Date End Date Gage Ovalles APRN PCP - General Nurse Practitioner Family 02/08/19 documented as of this encounter
--- OUTSIDE RECORDS SUMMARY | 2025-01-10 19:32 | XMS_ITS | Encounter Summary ---
Author Organization [facility] Address [address] [place] [address] Care Team Providers Care Candle Cutter Name Role Phone Gage Ovalles APRN Primary Care Provider [phone] Encounter Details Date Type Department Care Team (Late st Contact Info) Description 07/20/2007 Outpatient Historical [facility] 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
--- OUTSIDE RECORDS SUMMARY | 2025-01-10 19:32 | XMS_ITS | Encounter Summary ---
Author Organization [facility] Address [address] [place] [address] Care Team Providers Care Underwear Hemmer Name Role Phone Gage Ovalles APRN Primary Care Provider [phone] Encounter Details Date Type Department Care Team (Latest Contact Info) Description 06/26/[address] [phone] Mellissa Collier MD NO ADDRESS ON FILE ACUTE URI NOS (Primary Dx); REFLUX ESOPHAGITIS; ANEMIA NEC Social History Tobacco Use Types Packs/Day Years Used Date Smoking Tobacco: Never Assessed Comments Unknown Sex and Gender Information Value Date Recorded Sex Assigned at Not on file Legal Sex Female 2:53 AM 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
--- OUTSIDE RECORDS SUMMARY | 2025-01-10 19:32 | XMS_ITS | Encounter Summary ---
Author Organization [facility] Address [address] [place] [address] Care Team Providers Care Surgical Garment Assembler Name Role Phone Gage Ovalles APRN Primary Care Provider [phone] Encounter Details Date Type Department Care Team (Late st Contact Info) Description 05/24/2007 Outpatient Historical [facility] Plastic Surgery [address] [place] [address] Matt Roca MD [address] [place] [address] Social History Tobacco Use Types Packs/Day Years Used Date Smoking Tobacco: Never Assessed Comments Unknown Sex and Gender Information Value Date Recorded Sex Assigned at Not on file Legal Sex Female 2:53 AM HAND I TUBE BENDER Gender Identity Not on file Sexual Orientation Not on file documented as of this encounter Plan of Treatment Not on file documented as of this encounter Visit Diagnoses Not on filedocumented in this encounter Care Teams Surgical Garment Assembler Relationship Specialty Start Date End Date Gage Ovalles APRN PCP - General Nurse Practitioner Family 02/08/19 documented as of this encounter
--- OUTSIDE RECORDS SUMMARY | 2025-01-10 19:32 | XMS_ITS | Encounter Summary ---
Author Organization [facility] Address [address] [place] [address] Care Team Providers Care Armorer Technician Name Role Phone Gage Ovalles APRN Primary Care Provider Encounter Details Date Type Department Care Team (Latest Contact Info) Description 03/02/2007 Outpatient Historical [facility] Medicine [place] [address] [facility] [address] [place] [phone] Jenelle Monreal, DENTAL APPLIANCE FIXER [address] [place] [address] Unspecified Symptom Associated with Female Genital Organs (Primary Dx) Social History Tobacco Use Types Packs/Day Years Used Date Smoking Tobacco: Never Assessed Comments Unknown Sex and Gender Information Value Date Recorded Sex Assigned at Not on file Legal Sex Female 2:53 AM FLOOR NURSE Gender Identity Not on file Sexual Orientation Not on file documented as of this encounter Plan of Treatment Not on file documented as of this encounter Visit Diagnoses Diagnosis Unspecified symptom associated with female genital organs- Primary documented in this encounter Care Teams Armorer Technician Relationship Specialty Start Date End Date Gage Ovalles APRN PCP - General Nurse Practitioner Family 02/08/19 documented as of this encounter
--- OUTSIDE RECORDS SUMMARY | 2025-01-10 19:32 | XMS_ITS | Encounter Summary ---
Author Organization [facility] Address [address] [place] [address] Care Team Providers Care General Forecaster Name Role Phone Gage Ovalles APRN Primary Care Provider [phone] Encounter Details Date Type Department Care Team (Late st Contact Info) Description 05/24/2007 Outpatient Historical 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
--- OUTSIDE RECORDS SUMMARY | 2025-01-10 19:32 | XMS_ITS | Encounter Summary ---
Author Organization [facility] Address [address] [place] [address] Care Team Providers Care Timber Feller Name Role Phone Gage Ovalles APRN Primary Care Provider Encounter Details Date Type Department Care Team (Latest Contact Info) Description 12/24/2002 Outpatient Historical [address] [phone] Jenelle Monreal, AREA FIELD WORKER [address] [place] [phone] OTHER POSTOP INFECTION (Primary Dx) Social History Tobacco Use Types Packs/Day Years Used Date Smoking Tobacco: Never Assessed Comments Unknown Sex and Gender Information Value Date Recorded Sex Assigned at Not on file Legal Sex Female 2:53 AM DIRECTOR BUSINESS Gender Identity Not on file Sexual Orientation Not on file documented as of this encounter Plan of Treatment Not on file documented as of this encounter Visit Diagnoses Diagnosis Other postoperative infection- Primary documented in this encounter Care Teams Timber Feller Relationship Specialty Start Date End Date Gage Ovalles APRN PCP - General Nurse Practitioner Family 02/08/19 documented as of this encounter
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
--- OUTSIDE RECORDS SUMMARY | 2025-01-10 19:32 | XMS_ITS | Encounter Summary ---
Author Organization [facility] Address [address] [place] [address] Care Team Providers Care Ventilation Mechanic Name Role Phone Gage Ovalles APRN Primary Care Provider [phone] Encounter Details Date Type Department Care Team (Latest Contact Info) Description 02/07/2003 Outpatient Historical [facility] Medicine [address] [address] Mellissa Collier MD NO ADDRESS ON FILE ACUTE BRONCHITIS (Primary Dx) Social History Tobacco Use Types Packs/Day Years Used Date Smoking Tobacco: Never Assessed Comments Unknown Sex and Gender Information Value Date Recorded Sex Assigned at Not on file Legal Sex Female 2:53 AM 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
--- OUTSIDE RECORDS SUMMARY | 2025-01-10 19:32 | XMS_ITS | Encounter Summary ---
Author Organization [facility] Address [address] [facility] [place] [address] Care Team Providers Care Windchill Administrator Name Role Phone Gage Ovalles APRN Primary Care Provider [phone] Encounter Details Date Type Department Care Team (Late st Contact Info) Description 08/02/2007 Outpatient Historical [facility] Family Medicine- [address] [place] [id number] Luke Monreal NP NO ADDRESS ON FILE Social History Tobacco Use Types Packs/Day Years Used Date Smoking Tobacco: Never Assessed Comments Unknown Sex and Gender Information Value Date Recorded Sex Assigned at Not on file Legal Sex Female 2:53 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 Pulse: 0. Not dictated. BP: 104/78. Temperature is 98.2. ALLERGIES: THE PATIENT IS ALLERGIC TO MORPHINE, ASPIRIN, MOTRIN, ERYTHROMYCIN, BIAXIN AND ANTIINFLAMMATORIES. SUBJECTIVE: Cough, sinus congestion and anxiety. OBJECTIVE: GENERAL: The patient is in no acute distress. She does have a dry cough. She is in [employer]. Examination shows the TMs have adequate light reflex. Oropharynx is without erythema or exudate. She hadsome thick mucoid postnasal discharge. NECK: Supple. HEART: Normal sinus rate and rhythm. LUNGS: CTA. The patient says she is not sleeping well. She is very anxious about everything and she would like to have something for anxiety. She has been on trazodone in the past and she is willing to restart that. She has a supposed appointment with Lary Beck at [facility] in August. We gave her Lincocin 600 mg IM here and called to Karol trazodone 50 mg, number 60 no refill, one or two at bedtime, which were her previous directions. Mucinex DM, number 30, one refill, one q.p.m. p.r.n. cough or cold. Avelox 400 mg, number 10, one daily PC 7-[address] Escobar okayed Mucinex D, number 30, one refill, one q. a.m. for sinus. She is to return if she has worsening signs or symptoms and p.r.n. CLAUDIA Patel M.D. [facility] Electronically Signed by CLAUDIA Patel 08/04/2007 17:05 , A, julia Document #: [id number] cc: documented in this encounter Plan of Treatment Not on file documented as of this encounter Visit Diagnoses Not on filedocumented in this encounter Care Teams Windchill Administrator Relationship Specialty Start Date End Date Gage Ovalles, YONG PCP - General Nurse Practitioner Family 02/08/19 documented as of this encounter
--- OUTSIDE RECORDS SUMMARY | 2025-01-10 19:32 | XMS_ITS | Encounter Summary ---
Author Organization [facility] Address [address] [facility] [place] [address] Care Team Providers Care Cardiac Cath Lab Technologist Name Role Phone Gage Ovalles APRN Primary Care Provider [phone] Encounter Details Date Type Department Care Team (Latest Contact Info) Description 04/02/2003 Outpatient Historical [facility] Family Medicine- [address] [place] [address] Jose Guadalupe Escobar DO NO ADDRESS ON FILE INFEC OTITIS EXTERNA NOS (Primary Dx) Social History Tobacco Use Types Packs/Day Years Used Date Smoking Tobacco: Never Assessed Comments Unknown Sex and Gender Information Value Date Recorded Sex Assigned at Not on file Legal Sex Female 2:53 AM 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
--- OUTSIDE RECORDS SUMMARY | 2025-01-10 19:32 | XMS_ITS | Encounter Summary ---
Author Organization [facility] Address [address] [place] [address] Care Team Providers Care Ic Designer Gate Arrays Name Role Phone Gage Ovalles APRN Primary Care Provider [phone] Encounter Details Date Type Department Care Team (Late st Contact Info) Description 04/03/2007 Outpatient Historical [facility] JOSECase [place] [address] [place] [address] Social History Tobacco Use Types Packs/Day Years Used Date Smoking Tobacco: Never Assessed Comments Unknown Sex and Gender Information Value Date Recorded Sex Assigned at Not on file Legal Sex Female 2:53 AM 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
--- OUTSIDE RECORDS SUMMARY | 2025-01-10 19:33 | XMS_ITS | Encounter Summary ---
Author Organization [facility] Address [address] [place] [address] Care Team Providers Care Glass Curvature Gauger Name Role Phone Gage Ovalles APRN Primary Care Provider [phone] Encounter Details Date Type Department Care Team (Latest Contact Info) Description 05/25/2001 Outpatient Historical [facility] Oral and Maxillo Surgery[address] [place] [address] Ferny Vincent, TOMMY NO ADDRESS ON FILE DENTAL CARIES (Primary Dx) Social History Tobacco Use Types Packs/Day Years Used Date Smoking Tobacco: Never Assessed Comments Unknown Sex and Gender Information Value Date Recorded Sex Assigned at Not on file 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
--- OUTSIDE RECORDS SUMMARY | 2025-01-10 19:33 | XMS_ITS | Encounter Summary ---
Author Organization [facility] Address [address] [place] [address] Care Team Providers Care Relief Salesperson Name Role Phone Gage Ovalles APRN Primary Care Provider [phone] Encounter Details Date Type Department Care Team (Latest Contact Info) Description 12/13/2006 Outpatient Historical [facility] Medicine [place] [address] [phone] Jenelle Monreal, MISSING P[employer]ONS INVESTIGATOR [address] [place] [address] Sebaceous Cyst (Primary Dx); Polydipsia; Other Abnormal Clinical Finding Social History Tobacco Use Types Packs/Day Years Used Date Smoking Tobacco: Never Assessed Comments Unknown Sex and Gender Information Value Date Recorded Sex Assigned at Not on file Legal Sex Female 2:53 AM SPECIAL DELIVERY 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
--- OUTSIDE RECORDS SUMMARY | 2025-01-10 19:33 | XMS_ITS | Encounter Summary ---
Author Organization [facility] Address [address] [facility] [place] [address] Care Team Providers Care Party Plan Dealer Name Role Phone Gage Ovalles APRN Primary Care Provider [phone] Encounter Details Date Type Department Care Team (Late st Contact Info) Description 10/27/2005 Outpatient Historical [facility] Family Medicine- [address] [place] [phone] Social History Tobacco Use Types Packs/Day Years Used Date Smoking Tobacco: Never Assessed Comments Unknown Sex and Gender Information Value Date Recorded Sex Assigned at Not on file Legal Sex Female 2:53 AM 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
--- OUTSIDE RECORDS SUMMARY | 2025-01-10 19:33 | XMS_ITS | Encounter Summary ---
Author Organization [facility] Address [address] 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
--- OUTSIDE RECORDS SUMMARY | 2025-01-10 19:33 | XMS_ITS | Encounter Summary ---
Author Organization [facility] Address [address] [place] [address] Care Team Providers Care Transporter Radiology Name Role Phone Gage Ovalles APRN Primary Care Provider [phone] Encounter Details Date Type Department Care Team (Latest Contact Info) Description 10/11/2005 Outpatient Historical [facility] Family Medicine- [address] [place] [address] Luke Monreal NP NO ADDRESS ON FILE Hysteria, Unspecified (Primary Dx) Social History Tobacco Use Types Packs/Day Years Used Date Smoking Tobacco: Never Assessed Comments Unknown Sex and Gender Information Value Date Recorded Sex Assigned at Not on file Legal Sex Female 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
--- OUTSIDE RECORDS SUMMARY | 2025-01-10 19:33 | XMS_ITS | Encounter Summary ---
Author Organization [facility] Address [address] [place] [address] Care Team Providers Care Clinical Document Improvement Educator Name Role Phone Gage Ovalles APRN Primary Care Provider [phone] Encounter Details Date Type Department Care Team (Late st Contact Info) Description 12/13/2007 Outpatient Historical [facility] Pain Management Procedures [address] 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
--- OUTSIDE RECORDS SUMMARY | 2025-01-10 19:33 | XMS_ITS | Encounter Summary ---
Author Organization [facility] Address [address] 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
--- OUTSIDE RECORDS SUMMARY | 2025-01-10 19:33 | XMS_ITS | Encounter Summary ---
Author Organization [facility] Address [address] [place] [address] Care Team Providers Care Whipped Topping Supervisor Name Role Phone Gage Ovalles APRN Primary Care Provider [phone] Encounter Details Date Type Department Care Team (Latest Contact Info) Description 09/10/2005 Outpatient [facility] Medicine [address] [address] Luke Monreal NP NO ADDRESS ON FILE Other B-Complex Deficiencies (Primary Dx); Spasm of Muscle; Unspecified Viral Warts; Sebaceous Cyst Social History Tobacco Use Types Packs/Day Years Used Date Smoking Tobacco: Never Assessed Comments Unknown Sex and Gender Information Value Date Recorded Sex Assigned at Not on file Legal Sex Female 2:53 AM ADVERTISING INTERNSHIP Gender Identity Not on file Sexual Orientation Not on file documented as of this encounter Plan of Treatment Not on file documented as of this encounter Visit Diagnoses Diagnosis Other B-complex deficiencies- Primary Spasm of muscle Viral warts, unspecified Sebaceous cyst documented in this encounter Care Teams Whipped Topping Supervisor Relationship Specialty Start Date End Date Gage Ovalles APRN PCP - General Nurse Practitioner Family 02/08/19 documented as of this encounter
--- OUTSIDE RECORDS SUMMARY | 2025-01-10 19:33 | XMS_ITS | Encounter Summary ---
Author Organization [facility] Address [address] [place] [address] Care Team Providers Care Lever Miller Name Role Phone Gage Ovalles APRN Primary Care Provider [phone] Encounter Details Date Type Department Care Team (Latest Contact Info) Description 12/13/2002 Outpatient Historical [facility] Medicine [address] [address] Mellissa Collier MD NO ADDRESS ON FILE EARLY ONSET DELIVERY-UNSPEC (Primary Dx); BACKACHE NOS Social History Tobacco Use Types Packs/Day Years Used Date Smoking Tobacco: Never Assessed Comments Unknown Sex and Gender Information Value Date Recorded Sex Assigned at Not on file Legal 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
--- OUTSIDE RECORDS SUMMARY | 2025-01-10 19:33 | XMS_ITS | Encounter Summary ---
Author Organization [facility] Address [address] [place] [address] Care Team Providers Care Ski Binding Fitter And Repairer Name Role Phone Gage Ovalles APRN Primary Care Provider Encounter Details Date Type Department Care Team (Late st Contact Info) Description 03/20/2007 Outpatient Historical [facility] [address] [facility] [address] [place] [address] Matt Roca MD [address] [place] [address] Sebaceous Cyst (Primary Dx) Social History Tobacco Use Types Packs/Day Years Used Date Smoking Tobacco: Never Assessed Comments Unknown Sex and Gender Information Value Date Recorded Sex Assigned at Not on file Legal Sex Female 2:53 AM 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
--- OUTSIDE RECORDS SUMMARY | 2025-01-10 19:33 | XMS_ITS | Encounter Summary ---
Author Organization [facility] Address [address] [place] [address] Care Team Providers Care Avionics Repair Technician Name Role Phone Gage Ovalles APRN Primary Care Provider [phone] Encounter Details Date Type Department Care Team (Late st Contact Info) Description 08/05/2014 Lab Requisition [facility] General Laboratory Services [place] [address] [place] [address] Jose Guadalupe Escobar, DO NO ADDRESS ON FILE Social History Tobacco Use Types Packs/Day Years Used Date Smoking Tobacco: Every Day Cigarettes 0.5 15 Smokeless Tobacco: Never Alcohol Use Standard Drinks/Week Comments No 0 (1 standard drink = 0.6 oz pur e alcohol) Comments No Sex and Gender Information Value Date Recorded Sex Assigned at Not on file Legal Sex Female 2:53 AM EGG SETTER Gender Identity Not on file Sexual Orientation Not on file Occupation Industry Job Start Date Job End Date Not on file Not on file Not on file Not on file Not on file Not on file Not on file Not on file documented as of this encounter Plan of Treatment Not on file documented as of this encounter Procedures Procedure Name Priority Date/Time Associated Diagnosis Comments DIFFERENTIAL, MANUAL Routine 08/05/2014 9:56 PM EGG SETTER CBC WITH DIFFERENTIAL Routine 08/05/2014 9:56 PM EGG SETTER URINE CULTURE Routine 08/05/2014 9:56 PM EGG SETTER TSH Routine 08/05/2014 9:56 PM EGG SETTER COMPREHENSIVE METABOLIC PANEL Routine 08/05/2014 9:56 PM EGG SETTER documented in this encounter Results * (ABNORMAL) MANUAL DIFFERENTIAL (08/05/2014 9:56 PM EGG SETTER) ADJUSTED WBC 13.8 K/uL 08/05/2014 10:16 PM EGG SETTER [facility] [place] SEGMENTED NEUTROPHILS 34(L) 45 - 70 % 08/05/2014 10:16 PM EGG SETTER [facility] [place] LYMPHOCYTES RELATIVE 58(H) 20 - 45 % 08/05/2014 10:16 PM EGG SETTER [facility] [place] MONOCYTES RELATIVE 5 2 - 8 % 08/05/2014 10:16 PM EGG SETTER [facility] [place] EOSINOPHILS RELATIVE 3 0 - 5 % 08/05/2014 10:16 PM EGG SETTER [facility] [place] BASOPHILS RELATIVE 0 - 2 % 08/05/2014 10:16 PM EGG SETTER [facility] [place] PLATELET EST. Consistent with Count 08/05/2014 10:16 PM EGG SETTER [facility] [place] NEUTROPHILS ABSOLUTE COUNT 4.69 1.78 - 5.38 K/uL 08/05/2014 10:16 PM EGG SETTER [facility] [place] LYMPHOCYTES ABSOLUTE 8.00(H) 1.20 - 4.00 K/uL 08/05/2014 10:16 PM EGG SETTER [facility] [place] MONOCYTES ABSOLUTE 0.69 0.30 - 0.82 K/uL 08/05/2014 10:16 PM EGG SETTER [facility] [place] EOSINOPHILS ABSOLUTE 0.41 0.04 - 0.54 K/uL 08/05/2014 10:16 PM EGG SETTER [facility] [place] BASOPHILS ABSOLUTE 0.01 - 0.08 K/uL 08/05/2014 10:16 PM EGG SETTER [facility] [place] RBC MORPHOLOGY Normal 08/05/2014 10:16 PM EGG SETTER [facility] [place] WBC MORPHOLOGY Normal 08/05/2014 10:16 PM EGG SETTER [facility] [place] TOTAL CELLS COUNTED IN DIFF 100 08/05/2014 10:16 PM EGG SETTER [facility] [place] Blood 08/05/2014 9:56 PM EGG SETTER 08/05/2014 9:56 PM EGG SETTER Jose Guadalupe Escobar DO HEMATOLOGY ORDERABLES COM Final Result [facility] CLIA # [id number] [address] [place] [address] * (ABNORMAL) URINE CULTURE (08/05/2014 9:56 PM EGG SETTER) Pathologist [facility] CULTURE >100,000 cfu/mL Escherichia coli(A) PRANAY MCG/ML 08/07/2014 3:43 PM EGG SETTER [facility] Urine URINE SPECIMEN OBTAINED BY CLEAN CATCH PROCEDURE / Unknown 08/05/2014 9:56 PM EGG SETTER 08/05/2014 9:56 PM EGG SETTER Narrative Organism Antibiotic Method Susceptibility Escherichia coli AMPICILLIN PRANAY MCG/ML >16 mcg/mL: Resistant Escherichia coli CEFAZOLIN PRANAY MCG/ML >16 mcg/mL: Resistant Escherichia coli CEFEPIME PRANAY MCG/ML <=8 mcg/mL: Susceptible Escherichia coli CEFTRIAXONE PRANAY MCG/ML <=8 mcg/mL: Susceptible Escherichia coli CIPROFLOXACIN PRANAY MCG/ML <=1 mcg/mL: Susceptible Escherichia coli GENTAMICIN PRANAY MCG/ML <=4 mcg/mL: Susceptible Escherichia coli LEVOFLOXACIN PRANAY MCG/ML <=2 mcg/mL: Susceptible Escherichia coli NITROFURANTOIN PRANAY MCG/ML <=32 mcg/mL: Susceptible Escherichia coli PIPERACILLIN/ TAZOBACTAM PRANAY MCG/ML <=16 mcg/mL: Susceptible Escherichia coli TOBRAMYCIN PRANAY MCG/ML <=4 mcg/mL: Susceptible Escherichia coli TRIMETHOPRIM/ SULFAMETHOXAZOLE PRANAY MC G/ML <=2/38 mcg/mL: Susceptible Escherichia coli CEFTAZIDIME PRANAY MCG/ML <=1 mcg/mL: Susceptible Jose Guadalupe Escobar DO MICROBIOLOGY - GENERAL ORDERABL ES Final Result [facility] CLIA # [id number] [address] [place] [address] * TSH (08/05/2014 9:56 PM EGG SETTER) TSH 0.67 0.30 - 4.80 uIU/mL 08/05/2014 10:24 PM [facility] [employer] [facility] Blood 08/05/2014 9:56 PM EGG SETTER 08/05/2014 9:56 PM EGG SETTER Jose Guadalupe Escobar DO CHEMISTRY ORDERABLES Final Resu lt [facility] [employer] [facility] CLIA # [id number] [address] [place] [address] * (ABNORMAL) COMPREHENSIVE METABOLIC PANEL (08/05/2014 9:56 PM EGG SETTER) Pathologist [facility] SODIUM 141 136 - 145 mmol/L 08/05/2014 10:24 PM [facility] [employer] [facility] POTASSIUM 4.0 3.5 - 5.1 mmol/L 08/05/2014 10:24 PM [facility] [employer] [facility] CHLORIDE 104 98 - 107 mmol/L 08/05/2014 10:24 PM [facility] [employer] [facility] CO2 27 21 - 32 mmol/L 08/05/2014 10:24 PM [facility] [employer] [facility] CALCIUM 9.3 8.5 - 10.1 mg/dL 08/05/2014 10:24 PM [facility] [employer] [facility] BUN 8 7 - 18 mg/dL 08/05/2014 10:24 PM [facility] [employer] [facility] CREATININE 0.80 0.60 - 1.30 mg/dL 08/05/2014 10:24 PM [facility] [employer] [facility] GLUCOSE 100 74 - 106 mg/dL 08/05/2014 10:24 PM [facility] TOTAL PROTEIN 7.7 6.4 - 8.2 g/dL 08/05/2014 10:24 PM [facility] [employer] [facility] ALBUMIN 4.1 3.4 - 5.0 g/dL 08/05/2014 10:24 PM [facility] [employer] [facility] BILIRUBIN TOTAL 0.3 0.2 - 1.0 mg/dL 08/05/2014 10:24 PM [facility] ALKALINE PHOSPHATASE 78 46 - 116 U/L 08/05/2014 10:24 PM [facility] AST 13(L) 15 - 37 U/L 08/05/2014 10:24 PM [facility] ALT 24(L) 30 - 65 U/L 08/05/2014 10:24 PM [facility] GFR >60 >=60 mL/min/1.7 3 sq meter 08/05/2014 10:24 PM [facility] Comment: eGFR has not been validated for use in the elderly (> 70 years of age), women, patients with serious co-morbid conditions, or persons with extremes of body size or muscle mass and should also be interpreted with caution in patients with acute kidney failure, dialysis dependent patients, patients reporting exceptional dietary intake (e.g. vegetarian diet, high protein diets, creatine supplementation), and patients with severe liver disease. Based on National Kidney Disease Education Program If patient is , please refer to the GFR result. GFR, >60 >=60 mL/min/1.7 3 sq meter 08/05/2014 10:24 PM [facility] ANION GAP 10(L) 12 - 20 mmol/L 08/05/2014 10:24 PM [facility] Blood 08/05/2014 9:56 PM EGG SETTER 08/05/2014 9:56 PM EGG SETTER Narrative [facility] [employer] [facility] - 08/05/2014 10:24 PM EGG SETTER Effective 02/28/2014, the Alkaline Phosphatase test method and reference range have changed. Please take this into consideration when interpreting results prior to or after this date. us Jose Guadalupe Escobar DO CHEMISTRY ORDERABLES Final Resu lt [facility] CLIA # [id number] [address] [address] * (ABNORMAL) CBC WITH DIFFERENTIAL (08/05/2014 9:56 PM EGG SETTER) WBC 13.8(H) 4.0 - 10.0 K/uL 08/05/2014 10:05 PM [facility] RBC 4.55 3.93 - 5.22 M/uL 08/05/2014 10:05 PM [facility] HEMOGLOBIN 14.4 11.2 - 15.7 g/dL 08/05/2014 10:05 PM [facility] HEMATOCRIT 43.2 34.1 - 44.9 % 08/05/2014 10:[address] [facility] MCV 94.9(H) 79.4 - 94.8 fL 08/05/2014 10:05 PM [facility] MCH 31.6 25.6 - 32.2 pg 08/05/2014 10:05 PM [facility] MCHC 33.3 32.2 - 35.5 g/dL 08/05/2014 10:05 PM [facility] RDW 14.8(H) 11.0 - 14.5 % 08/05/2014 10:[address] [facility] RDW-STDEV 49.0 36.9 - 56.9 fL 08/05/2014 10:05 PM [facility] PLATELETS 457(H) 163 - 337 K/uL 08/05/2014 10:05 PM [facility] MPV 10.9 10.0 - 14.8 fL 08/05/2014 10:05 PM [facility] [employer] [facility] Blood 08/05/2014 9:56 PM EGG SETTER 08/05/2014 9:56 PM EGG SETTER us Jose Guadalupe Escobar DO HEMATOLOGY ORDERABLES Final Res ult [facility] CLIA # [id number] [address] [place] [address] documented in this encounter Visit Diagnoses Not on filedocumented in this encounter Care Teams Avionics Repair Technician Relationship Specialty Start Date End Date Gage Ovalles, YONG PCP - General Nurse Practitioner Family 02/08/19 documented as of this encounter
--- OUTSIDE RECORDS SUMMARY | 2025-01-10 19:33 | XMS_ITS | Encounter Summary ---
Author Organization [facility] Address [address] [place] [address] Care Team Providers Care Linen Worker Name Role Phone Gage Ovalles APRN Primary Care Provider [phone] Encounter Details Date Type Department Care Team (Latest Contact Info) Description 02/09/2007 Outpatient Historical [facility] Medicine [place] [address] [facility] [address] [place] [address] Jenelle Monreal, QUARRY PLANT CRUSHER OPERATOR [address] [place] [address] Oral Aphthae (Primary Dx); Acute Upper Respiratory Infections of Unspecified Site Social History Tobacco Use Types Packs/Day Years Used Date Smoking Tobacco: Never Assessed Comments Unknown Sex and Gender Information Value Date Recorded Sex Assigned at Not on file Legal Sex Female 2:53 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
--- OUTSIDE RECORDS SUMMARY | 2025-01-10 19:33 | XMS_ITS | Encounter Summary ---
Author Organization [facility] Address [address] [place] [address] Care Team Providers Care General Claims Agent Name Role Phone Gage Ovalles APRN Primary Care Provider [phone] Encounter Details Date Type Department Care Team (Latest Contact Info) Description 03/27/2002 Outpatient Historical [facility] Medicine [place] [address] [facility] [address] [place] [address] Evin Head MD [address] [facility] [address] [place] [address] SPASM OF MUSCLE (Primary Dx) Social History Tobacco Use Types Packs/Day Years Used Date Smoking Tobacco: Never Assessed Comments Unknown Sex and Gender Information Value Date Recorded Sex Assigned at Not on file Legal Sex Female 2:53 AM 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
--- OUTSIDE RECORDS SUMMARY | 2025-01-10 19:33 | XMS_ITS | Encounter Summary ---
Author Organization [facility] Address [address] [place] [facility] [place] [address] Care Team Providers Care Blast Furnace Helper Name Role Phone Gage Ovalles APRN Primary Care Provider [phone] Encounter Details Date Type Department Care Team (Latest Contact Info) Description 09/28/2002 Outpatient Historical [facility] Family Medicine- [address] [place] [address] Mellissa Collier MD NO ADDRESS ON FILE ACUTE SINUSITIS NOS (Primary Dx) Social History Tobacco Use Types Packs/Day Years Used Date Smoking Tobacco: Never Assessed Comments Unknown Sex and Gender Information Value Date Recorded Sex Assigned at Not on file Legal Sex Female 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
--- OUTSIDE RECORDS SUMMARY | 2025-01-10 19:33 | XMS_ITS | Encounter Summary ---
Author Organization [facility] Address [address] [place]: Epic Prelude ADT [place] [address] Care Team Providers Care Motorsports Technician Name Role Phone Gage Ovalles APRN Primary Care Provider [phone] Encounter Details Date Type Department Care Team (Late st Contact Info) Description 06/05/2000 Outpatient Historical Non-Staff, Physician NO ADDRESS ON FILE Social History Tobacco Use Types Packs/Day Years Used Date Smoking Tobacco: Never Assessed Comments Unknown Sex and Gender Information Value Date Recorded Sex Assigned at Not on file Legal Sex Female 2:53 AM CUPOLA PATCHER Gender Identity Not on file Sexual Orientation Not on file documented as of this encounter Plan of Treatment Not on file documented as of this encounter Visit Diagnoses Not on filedocumented in this encounter Care Teams Motorsports Technician Relationship Specialty Start Date End Date Gage Ovalles APRN PCP - General Nurse Practitioner Family 02/08/19 documented as of this encounter
--- OUTSIDE RECORDS SUMMARY | 2025-01-10 19:33 | XMS_ITS | Encounter Summary ---
Author Organization [facility] Address [address] [place] [address] Care Team Providers Care Machine Grinder Name Role Phone Gage Ovalles APRN Primary Care Provider [phone] Encounter Details Date Type Department Care Team (Latest Contact Info) Description 08/03/2002 Outpatient Historical [facility] Medicine [address] [address] Mellissa Collier MD NO ADDRESS ON FILE ADV EFFECT MED/BIOL SUB NOS (Primary Dx) Social History Tobacco Use Types Packs/Day Years Used Date Smoking Tobacco: Never Assessed Comments Unknown Sex and Gender Information Value Date Recorded Sex Assigned at Not on file Legal Sex Female 2:53 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
--- OUTSIDE RECORDS SUMMARY | 2025-01-10 19:33 | XMS_ITS | Encounter Summary ---
Author Organization [facility] Address [address] [place]: Epic Prelude ADT [place] [address] Care Team Providers Care Telephone Sterilizer Name Role Phone Gage Ovalles APRN Primary Care Provider [phone] Encounter Details Date Type Department Care Team (Late st Contact Info) Description 10/25/2001 Outpatient Historical Jenelle Monreal, JET OPERATOR [address] [place] [address] Social History Tobacco Use Types Packs/Day Years Used Date Smoking Tobacco: Never Assessed Comments Unknown Sex and Gender Information Value Date Recorded Sex Assigned at Not on file Legal Sex Female 2:53 AM AFTERNOON BABYSITTER Gender Identity Not on file Sexual Orientation Not on file documented as of this encounter Plan of Treatment Not on file documented as of this encounter Visit Diagnoses Not on filedocumented in this encounter Care Teams Telephone Sterilizer Relationship Specialty Start Date End Date Gage Ovalles APRN PCP - General Nurse Practitioner Family 02/08/19 documented as of this encounter
--- OUTSIDE RECORDS SUMMARY | 2025-01-10 19:33 | XMS_ITS | Encounter Summary ---
Author Organization [facility] Address [address] [place] [address] Care Team Providers Care Molecular Physicist Name Role Phone Gage Ovalles APRN Primary Care Provider [phone] Encounter Details Date Type Department Care Team (Latest Contact Info) Description 11/13/2001 Outpatient Historical [facility] [address] [place] [address] Evin Head MD [address] [place] [phone] ACUTE MAXILLARY SINUSITIS (Primary Dx) Social History Tobacco Use Types Packs/Day Years Used Date Smoking Tobacco: Never Assessed Comments Unknown Sex and Gender Information Value Date Recorded Sex Assigned at Not on file Legal Sex Female 2:53 AM CONFERENCE AND EVENT ORGANISER Gender Identity Not on file Sexual Orientation Not on file documented as of this encounter Plan of Treatment Not on file documented as of this encounter Visit Diagnoses Diagnosis Acute maxillary sinusitis- Primary documented in this encounter Care Teams Molecular Physicist Relationship Specialty Start Date End Date Gage Ovalles APRN PCP - General Nurse Practitioner Family 02/08/19 documented as of this encounter
--- OUTSIDE RECORDS SUMMARY | 2025-01-10 19:33 | XMS_ITS | Encounter Summary ---
Author Organization [facility] Address [address] [place] [address] Care Team Providers Care Fixed Assets Accountant Name Role Phone Gage Ovalles APRN Primary Care Provider Encounter Details Date Type Department Care Team (Latest Contact Info) Description 01/19/2002 Outpatient Historical [address] [phone] Jose Guadalupe Escobar DO NO ADDRESS ON FILE ACUTE BRONCHITIS (Primary Dx); ACUTE PHARYNGITIS Social History Tobacco Use Types Packs/Day Years Used Date Smoking Tobacco: Never Assessed Comments Unknown Sex and Gender Information Value Date Recorded Sex Assigned at Not on file Legal Sex Female 2:53 AM PHOTOGRAPH ENLARGER Gender Identity Not on file Sexual Orientation Not on file documented as of this encounter Plan of Treatment Not on file documented as of this encounter Visit Diagnoses Diagnosis Acute bronchitis- Primary Acute pharyngitis documented in this encounter Care Teams Fixed Assets Accountant Relationship Specialty Start Date End Date Gage Ovalles APRN PCP - General Nurse Practitioner Family 02/08/19 documented as of this encounter
--- OUTSIDE RECORDS SUMMARY | 2025-01-10 19:33 | XMS_ITS | Encounter Summary ---
Author Organization [facility] Address [address] [place] [address] Care Team Providers Care Senior Science Consultant Name Role Phone Gage Ovalles APRN Primary Care Provider [phone] Encounter Details Date Type Department Care Team (Latest Contact Info) Description 10/27/2005 Outpatient Historical [facility] Family Medicine- [place] [address] [place] [address] Luke Monreal NP NO ADDRESS ON FILE Pain in Joint, Shoulder Region (Primary Dx); Pain in Joint, Forearm; Skin Sensation Disturb Social History Tobacco Use Types Packs/Day Years Used Date Smoking Tobacco: Never Assessed Comments Unknown Sex and Gender Information Value Date Recorded Sex Assigned at Not on file Legal Sex Female 2:53 AM WEIGHT SHIFTER Gender Identity Not on file Sexual Orientation Not on file documented as of this encounter Plan of Treatment Not on file documented as of this encounter Visit Diagnoses Diagnosis Pain in joint, shoulder region- Primary Pain in joint, forearm Skin sensation disturb Disturbance of skin sensation documented in this encounter Care Teams Senior Science Consultant Relationship Specialty Start Date End Date Gage Ovalles APRN PCP - General Nurse Practitioner Family 02/08/19 documented as of this encounter
--- OUTSIDE RECORDS SUMMARY | 2025-01-10 19:33 | XMS_ITS | Encounter Summary ---
Author Organization [facility] Address [address] [place] [address] Care Team Providers Care Anthropological Linguist Name Role Phone Gage Ovalles APRN Primary Care Provider [phone] Encounter Details Date Type Department Care Team (Latest Contact Info) Description 05/03/2005 Outpatient Historical [facility] [address] [place] [address] AMBULANCE, [facility] CERVICALGIA (Primary Dx) Social History Tobacco Use Types Packs/Day Years Used Date Smoking Tobacco: Never Assessed Comments Unknown Sex and Gender Information Value Date Recorded Sex Assigned at Not on file Legal Sex Female 2:53 AM SHOE WORKER Gender Identity Not on file Sexual Orientation Not on file documented as of this encounter Plan of Treatment Not on file documented as of this encounter Visit Diagnoses Diagnosis Cervicalgia- Primary documented in this encounter Care Teams Anthropological Linguist Relationship Specialty Start Date End Date Gage Ovalles APRN PCP - General Nurse Practitioner Family 02/08/19 documented as of this encounter
--- OUTSIDE RECORDS SUMMARY | 2025-01-10 19:33 | XMS_ITS | Encounter Summary ---
Author Organization [facility] Address [address] [place] [address] Care Team Providers Care Data Architect Name Role Phone Gage Ovalles APRN Primary Care Provider [phone] Encounter Details Date Type Department Care Team (Latest Contact Info) Description 10/25/2001 Outpatient [facility] [address] [place] [phone] Mellissa Collier MD NO ADDRESS ON FILE LOSS OF WEIGHT (Primary Dx); OTHER MALAISE AND FATIGUE; POLYDIPSIA Social History Tobacco Use Types Packs/Day Years Used Date Smoking Tobacco: Never Assessed Comments Unknown Sex and Gender Information Value Date Recorded Sex Assigned at Not on file Legal Sex Female 2:53 AM CANDY PACKER Gender Identity Not on file Sexual Orientation Not on file documented as of this encounter Plan of Treatment Not on file documented as of this encounter Visit Diagnoses Diagnosis Loss of weight- Primary Other malaise and fatigue Polydipsia documented in this encounter Care Teams Data Architect Relationship Specialty Start Date End Date Gage Ovalles APRN PCP - General Nurse Practitioner Family 02/08/19 documented as of this encounter
--- OUTSIDE RECORDS SUMMARY | 2025-01-10 19:33 | XMS_ITS | Encounter Summary ---
Author Organization [facility] Address [address] [place] [address] Care Team Providers Care Automobile Detailer Name Role Phone Gage Ovalles APRN Primary Care Provider [phone] Encounter Details Date Type Department Care Team (Late st Contact Info) Description 01/19/2008 Outpatient Historical [facility] [address] [place] [address] Marko Tan MD NO ADDRESS ON FILE Social History Tobacco Use Types Packs/Day Years Used Date Smoking Tobacco: Never Assessed Comments Unknown Sex and Gender Information Value Date Recorded Sex Assigned at Not on file Legal Sex Female 2:53 AM DELIVERY STOCK CLERK Gender Identity Not on file Sexual Orientation Not on file documented as of this encounter Plan of Treatment Not on file documented as of this encounter Visit Diagnoses Not on filedocumented in this encounter Care Teams Automobile Detailer Relationship Specialty Start Date End Date Gage Ovalles APRN PCP - General Nurse Practitioner Family 02/08/19 documented as of this encounter
--- OUTSIDE RECORDS SUMMARY | 2025-01-10 19:33 | XMS_ITS | Encounter Summary ---
Author Organization [facility] Address [address] [place] [address] Care Team Providers Care Journeyman Press Operator Name Role Phone Gage Ovalles APRN Primary Care Provider [phone] Encounter Details Date Type Department Care Team (Late st Contact Info) Description 01/30/2008 Outpatient Historical [facility] [address] [place] [address] Marko Tan MD NO ADDRESS ON FILE Social History Tobacco Use Types Packs/Day Years Used Date Smoking Tobacco: Never Assessed Comments Unknown Sex and Gender Information Value Date Recorded Sex Assigned at Not on file Legal Sex Female 2:53 AM SEED TESTER Gender Identity Not on file Sexual Orientation Not on file documented as of this encounter Plan of Treatment Not on file documented as of this encounter Visit Diagnoses Not on filedocumented in this encounter Care Teams Journeyman Press Operator Relationship Specialty Start Date End Date Gage Ovalles APRN PCP - General Nurse Practitioner Family 02/08/19 documented as of this encounter
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
--- OUTSIDE RECORDS SUMMARY | 2025-01-10 19:33 | XMS_ITS | Encounter Summary ---
Author Organization [facility] Address [address] [place] [address] Care Team Providers Care Database Administration Associate Name Role Phone Gage Ovalles APRN Primary Care Provider [phone] Encounter Details Date Type Department Care Team (Latest Contact Info) Description 03/02/2007 Outpatient Historical [facility] [place] [address] [phone] Jenelle Monreal, VAMP LINER [address] [place] [address] Routine Gynecological Examination (Primary Dx) Social History Tobacco Use Types Packs/Day Years Used Date Smoking Tobacco: Never Assessed Comments Unknown Sex and Gender Information Value Date Recorded Sex Assigned at Not on file Legal Sex Female 2:53 AM EXECUTIVE KITCHEN MANAGER Gender Identity Not on file Sexual Orientation Not on file documented as of this encounter Plan of Treatment Not on file documented as of this encounter Visit Diagnoses Diagnosis Routine gynecological examination- Primary documented in this encounter Care Teams Database Administration Associate Relationship Specialty Start Date End Date Gage Ovalles APRN PCP - General Nurse Practitioner Family 02/08/19 documented as of this encounter
--- OUTSIDE RECORDS SUMMARY | 2025-01-10 19:33 | XMS_ITS | Encounter Summary ---
Author Organization [facility] Address [address] [place] [address] Care Team Providers Care Franchise Sales Representative Name Role Phone Gage Ovalles APRN Primary Care Provider [phone] Encounter Details Date Type Department Care Team (Late st Contact Info) Description 02/22/2008 Outpatient Historical [facility] Bre Medina I, CORNELIUS [address] [place] [address] Social History Tobacco Use Types Packs/Day Years Used Date Smoking Tobacco: Never Assessed Comments Unknown Sex and Gender Information Value Date Recorded Sex Assigned at Not on file Legal Sex Female 2:53 AM BUCKLER AND LACER Gender Identity Not on file Sexual Orientation Not on file documented as of this encounter Plan of Treatment Not on file documented as of this encounter Visit Diagnoses Not on filedocumented in this encounter Care Teams Franchise Sales Representative Relationship Specialty Start Date End Date Gage Ovalles APRN PCP - General Nurse Practitioner Family 02/08/19 documented as of this encounter
--- OUTSIDE RECORDS SUMMARY | 2025-01-10 19:33 | XMS_ITS | Encounter Summary ---
Author Organization [facility] Address [address] [place] [address] Care Team Providers Care Resource Analyst Name Role Phone Gage Ovalles APRN Primary Care Provider [phone] Encounter Details Date Type Department Care Team (Latest Contact Info) Description 02/25/2005 Outpatient Historical [facility] [place] [address] [facility] [address] [place] [phone] Jenelle Monreal, DIRECTOR OF RETAIL MARKETING [address] [place] [address] ACUTE URI NOS (Primary Dx) Social History Tobacco Use Types Packs/Day Years Used Date Smoking Tobacco: Never Assessed Comments Unknown Sex and Gender Information Value Date Recorded Sex Assigned at Not on file Legal Sex Female 2:53 AM CHIEF ADMINISTRATIVE OFFICER Gender Identity Not on file Sexual Orientation Not on file documented as of this encounter Plan of Treatment Not on file documented as of this encounter Visit Diagnoses Diagnosis Acute upper respiratory infections of unspecified site- Primary documented in this encounter Care Teams Resource Analyst Relationship Specialty Start Date End Date Gage Ovalles APRN PCP - General Nurse Practitioner Family 02/08/19 documented as of this encounter
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
--- OUTSIDE RECORDS SUMMARY | 2025-01-10 19:33 | XMS_ITS | Encounter Summary ---
Author Organization [facility] Address [address] [place] [address] Care Team Providers Care First Dyer Name Role Phone Gage Ovalles APRN Primary Care Provider [phone] Encounter Details Date Type Department Care Team (Late st Contact Info) Description 01/12/2008 Outpatient Historical [facility] [address] [facility] [address] [place] [address] Marko Tan MD NO ADDRESS ON FILE Headache Social History Tobacco Use Types Packs/Day Years Used Date Smoking Tobacco: Never Assessed Comments Unknown Sex and Gender Information Value Date Recorded Sex Assigned at Not on file Legal Sex Female 2:53 AM DATA CENTER MANAGER Gender Identity Not on file Sexual Orientation Not on file documented as of this encounter Plan of Treatment Not on file documented as of this encounter Visit Diagnoses Diagnosis Headache(784.0) Headache documented in this encounter Care Teams First Dyer Relationship Specialty Start Date End Date Gage Ovalles APRN PCP - General Nurse Practitioner Family 02/08/19 documented as of this encounter
--- OUTSIDE RECORDS SUMMARY | 2025-01-10 19:33 | XMS_ITS | Encounter Summary ---
Author Organization [facility] Address [address] [place] [address] Care Team Providers Care Drawstring Knotter Name Role Phone Gage Ovalles APRN Primary Care Provider [phone] Encounter Details Date Type Department Care Team (Latest Contact Info) Description 09/27/2005 Outpatient [facility] Medicine [address] [address] Luke Monreal NP NO ADDRESS ON FILE Acute Tonsillitis (Primary Dx); Unspecified Viral Warts Social History Tobacco Use Types Packs/Day Years Used Date Smoking Tobacco: Never Assessed Comments Unknown Sex and Gender Information Value Date Recorded Sex Assigned at Not on file Legal Sex Female 2:53 AM MILLER HEAD Gender Identity Not on file Sexual Orientation Not on file documented as of this encounter Plan of Treatment Not on file documented as of this encounter Visit Diagnoses Diagnosis Acute tonsillitis- Primary Viral warts, unspecified documented in this encounter Care Teams Drawstring Knotter Relationship Specialty Start Date End Date Gage Ovalles APRN PCP - General Nurse Practitioner Family 02/08/19 documented as of this encounter
--- OUTSIDE RECORDS SUMMARY | 2025-01-10 19:33 | XMS_ITS | Encounter Summary ---
Author Organization [facility] Address [address] [place] [facility] [place] [address] Care Team Providers Care Economics Professor Name Role Phone Gage Ovalles APRN Primary Care Provider [phone] Encounter Details Date Type Department Care Team (Latest Contact Info) Description 07/14/2005 Outpatient Historical [facility] Family Medicine- [address] [place] [address] Vealsquez Pollard PA NO ADDRESS ON FILE NONINFEC GASTROENTERIT NEC (Primary Dx) Social History Tobacco Use Types Packs/Day Years Used Date Smoking Tobacco: Never Assessed Comments Unknown Sex and Gender Information Value Date Recorded Sex Assigned at Not on file Legal Sex Female 2:53 AM TEACHER ASSISTANT Gender Identity Not on file Sexual Orientation Not on file documented as of this encounter Plan of Treatment Not on file documented as of this encounter Visit Diagnoses Diagnosis Other and unspecified noninfectious gastroenteritis and colitis(558.9)- Primary Other and unspecified noninfectious gastroenteritis and colitis documented in this encounter Care Teams Economics Professor Relationship Specialty Start Date End Date Gage Ovalles APRN PCP - General Nurse Practitioner Family 02/08/19 documented as of this encounter
--- OUTSIDE RECORDS SUMMARY | 2025-01-10 19:33 | XMS_ITS | Encounter Summary ---
Author Organization [facility] Address [address] [place]: Epic Prelude ADT [place] [address] Care Team Providers Care Shactor Helper Name Role Phone Gage Ovalles YONG Primary Care Provider [phone] Encounter Details Date Type Department Care Team (Late st Contact Info) Description 11/24/2006 Outpatient Historical Mellissa Collier MD NO ADDRESS ON FILE Social History Tobacco Use Types Packs/Day Years Used Date Smoking Tobacco: Never Assessed Comments Unknown Sex and Gender Information Value Date Recorded Sex Assigned at Not on file Legal Sex Female 2:53 AM SALES MARKETING MANAGER Gender Identity Not on file Sexual Orientation Not on file documented as of this encounter Plan of Treatment Not on file documented as of this encounter Procedures Procedure Name Priority Date/Time Associated Diagnosis Comments PERIPHERAL BLOOD STAINED SLIDE REQUEST Routine 11/24/2006 3:10 PM CDT documented in this encounter Results * PERIPHERAL BLOOD STAINED SLIDE REQUEST (11/24/2006 3:10 PM CDT) PERIPHERAL BLOOD SMEAR REVIEW Smear Reviewed Automated Diff INTERFACE SYSTEM Comment: Reactive lymphocytosis, suggest repeat CBC and differential in 7-10 days. If lymphocytosis persists, suggest flow cytometry on peripheral blood. Hina Winston MD. 11/24/2006 3:10 PM CDT Mellissa Collier MD HEMATOLOGY ORDERABLES Edite d INTERFACE SYSTEM Refer to clinic/hospital department documented in this encounter Visit Diagnoses Not on filedocumented in this encounter Care Teams Shactor Helper Relationship Specialty Start Date End Date Gage Ovalles, MINE WIRER PCP - General Nurse Practitioner Family 02/08/19 documented as of this encounter
--- OUTSIDE RECORDS SUMMARY | 2025-01-10 19:33 | XMS_ITS | Encounter Summary ---
Author Organization [facility] Address [address] [place] [address] Care Team Providers Care Wet Machine Cutter Name Role Phone Gage Ovalles APRN Primary Care Provider [phone] Encounter Details Date Type Department Care Team (Latest Contact Info) Description 04/07/2005 Outpatient Historical [facility] Family Medicine- [address] [place] [address] Luke Monreal NP NO ADDRESS ON FILE Vaccine for influenza (Primary Dx) Social History Tobacco Use Types Packs/Day Years Used Date Smoking Tobacco: Never Assessed Comments Unknown Sex and Gender Information Value Date Recorded Sex Assigned at Not on file Legal Sex Female 2:53 AM AIRPORT ELECTRICIAN Gender Identity Not on file Sexual Orientation Not on file documented as of this encounter Plan of Treatment Not on file documented as of this encounter Visit Diagnoses Diagnosis Vaccine for influenza- Primary Need for prophylactic vaccination and inoculation against influenza documented in this encounter Care Teams Wet Machine Cutter Relationship Specialty Start Date End Date Gage Ovalles APRN PCP - General Nurse Practitioner Family 02/08/19 documented as of this encounter
--- OUTSIDE RECORDS SUMMARY | 2025-01-10 19:33 | XMS_ITS | Encounter Summary ---
Author Organization [facility] Address [address] [place] [address] Care Team Providers Care Constitutional Law Professor Name Role Phone Gage Ovalles APRN Primary Care Provider [phone] Encounter Details Date Type Department Care Team (Latest Contact Info) Description 10/13/2005 Outpatient [facility] Medicine [address] [address] Luke Monreal NP NO ADDRESS ON FILE Posttraumatic Stress Disorder (Primary Dx); Nausea Alone; Injury, Other and Unspecified, Shoulder and Upper Arm; Unspecified Viral Warts Social History Tobacco Use Types Packs/Day Years Used Date Smoking Tobacco: Never Assessed Comments Unknown Sex and Gender Information Value Date Recorded Sex Assigned at Not on file Legal Sex Female 2:53 AM BLOOD BANK CREDIT CLERK Gender Identity Not on file Sexual Orientation Not on file documented as of this encounter Plan of Treatment Not on file documented as of this encounter Visit Diagnoses Diagnosis Posttraumatic stress disorder- Primary Nausea alone Injury, other and unspecified, shoulder and upper arm Viral warts, unspecified documented in this encounter Care Teams Constitutional Law Professor Relationship Specialty Start Date End Date Gage Ovalles APRN PCP - General Nurse Practitioner Family 02/08/19 documented as of this encounter
--- OUTSIDE RECORDS SUMMARY | 2025-01-10 19:33 | XMS_ITS | Encounter Summary ---
Author Organization [facility] Address [address] [place] [address] Care Team Providers Care Financial Recruiter Name Role Phone Gaeg Ovalles APRN Primary Care Provider [phone] Encounter Details Date Type Department Care Team (Latest Contact Info) Description 01/24/2002 Outpatient Historical [address] [phone] Mellissa Collier MD NO ADDRESS ON FILE ABDOMINAL PAIN UNSPEC SITE (Primary Dx) Social History Tobacco Use Types Packs/Day Years Used Date Smoking Tobacco: Never Assessed Comments Unknown Sex and Gender Information Value Date Recorded Sex Assigned at Not on file Legal Sex Female 2:53 AM ADJUNCT PHLEBOTOMY INSTRUCTOR Gender Identity Not on file Sexual Orientation Not on file documented as of this encounter Plan of Treatment Not on file documented as of this encounter Visit Diagnoses Diagnosis Abdominal pain, unspecified site- Primary documented in this encounter Care Teams Financial Recruiter Relationship Specialty Start Date End Date Gage Ovalles APRN PCP - General Nurse Practitioner Family 02/08/19 documented as of this encounter
--- OUTSIDE RECORDS SUMMARY | 2025-01-10 19:33 | XMS_ITS | Encounter Summary ---
Author Organization [facility] Address [address] [place] [address] Care Team Providers Care Paper Pattern Inspector Name Role Phone Gage Ovalles APRN Primary Care Provider [phone] Encounter Details Date Type Department Care Team (Latest Contact Info) Description 01/16/2007 Outpatient Historical [facility] Medicine [address] [address] Luke Monreal NP NO ADDRESS ON FILE Unspecified Infective Otitis Externa (Primary Dx); Other B-Complex Deficiencies Social History Tobacco Use Types Packs/Day Years Used Date Smoking Tobacco: Never Assessed Comments Unknown Sex and Gender Information Value Date Recorded Sex Assigned at Not on file Legal Sex Female 2:53 AM SAFETY PATROL OFFICER Gender Identity Not on file Sexual Orientation Not on file documented as of this encounter Plan of Treatment Not on file documented as of this encounter Visit Diagnoses Diagnosis Infective otitis externa, unspecified- Primary Other B-complex deficiencies documented in this encounter Care Teams Paper Pattern Inspector Relationship Specialty Start Date End Date Gage Ovalles APRN PCP - General Nurse Practitioner Family 02/08/19 documented as of this encounter
--- OUTSIDE RECORDS SUMMARY | 2025-01-10 19:33 | XMS_ITS | Encounter Summary ---
Author Organization [facility] Address [address] [place] [address] Care Team Providers Care Stockroom Inventory Clerk Name Role Phone Gage Ovalles APRN Primary Care Provider [phone] Encounter Details Date Type Department Care Team (Latest Contact Info) Description 01/20/[address] [phone] Velasquez Pollard PA NO ADDRESS ON FILE Unspecified Infective Otitis Externa (Primary Dx); Unspecified Vaginitis and Vulvovaginitis; Headache; Unspecified Acute Reaction to Stress Social History Tobacco Use Types Packs/Day Years Used Date Smoking Tobacco: Never Assessed Comments Unknown Sex and Gender Information Value Date Recorded Sex Assigned at Not on file Legal Sex Female 2:53 AM CHROME POLISHER Gender Identity Not on file Sexual Orientation Not on file documented as of this encounter Plan of Treatment Not on file documented as of this encounter Visit Diagnoses Diagnosis Infective otitis externa, unspecified- Primary Vaginitis and vulvovaginitis, unspecified Headache(784.0) Headache Unspecified acute reaction to stress documented in this encounter Care Teams Stockroom Inventory Clerk Relationship Specialty Start Date End Date Gage Ovalles APRN PCP - General Nurse Practitioner Family 02/08/19 documented as of this encounter
--- OUTSIDE RECORDS SUMMARY | 2025-01-10 19:33 | XMS_ITS | Encounter Summary ---
Author Organization [facility] Address [address] [place] [address] Care Team Providers Care Complaint Supervisor Name Role Phone Gage Ovalles APRN Primary Care Provider [phone] Encounter Details Date Type Department Care Team (Latest Contact Info) Description 05/09/[address] [phone] Velasquez Pollard, PA NO ADDRESS ON FILE Adjustment Disorder with Anxiety (Primary Dx); Depressive Disorder, not Elsewhere Classified Social History Tobacco Use Types Packs/Day Years Used Date Smoking Tobacco: Never Assessed Comments Unknown Sex and Gender Information Value Date Recorded Sex Assigned at Not on file Legal Sex Female 2:53 AM TOOLING MECHANIC Gender Identity Not on file Sexual Orientation Not on file documented as of this encounter Plan of Treatment Not on file documented as of this encounter Visit Diagnoses Diagnosis Adjustment disorder with anxiety- Primary Depressive disorder, not elsewhere classified documented in this encounter Care Teams Complaint Supervisor Relationship Specialty Start Date End Date Gage Ovalles APRN PCP - General Nurse Practitioner Family 02/08/19 documented as of this encounter
--- OUTSIDE RECORDS SUMMARY | 2025-01-10 19:33 | XMS_ITS | Encounter Summary ---
Author Organization [facility] Address [address] [place] [address] Care Team Providers Care Rn Outpatient Surgery Name Role Phone Gage Ovalles APRN Primary Care Provider [phone] Encounter Details Date Type Department Care Team (Latest Contact Info) Description 05/02/2001 Outpatient Historical [facility] Oral and Maxillo Surgery[address] [place] [address] Ferny Vincent, TOMMY NO ADDRESS ON FILE DENTAL CARIES (Primary Dx) Social History Tobacco Use Types Packs/Day Years Used Date Smoking Tobacco: Never Assessed Comments Unknown Sex and Gender Information Value Date Recorded Sex Assigned at Not on file Legal Sex Female 2:53 AM BINGO FLOATER Gender Identity Not on file Sexual Orientation Not on file documented as of this encounter Plan of Treatment Not on file documented as of this encounter Visit Diagnoses Diagnosis Dental caries- Primary documented in this encounter Care Teams Rn Outpatient Surgery Relationship Specialty Start Date End Date Gage Ovalles APRN PCP - General Nurse Practitioner Family 02/08/19 documented as of this encounter
--- OUTSIDE RECORDS SUMMARY | 2025-01-10 19:33 | XMS_ITS | Encounter Summary ---
Author Organization [facility] Address [address] [place] [address] Care Team Providers Care Casting Molder Name Role Phone Gage Ovalles APRN Primary Care Provider [phone] Encounter Details Date Type Department Care Team (Latest Contact Info) Description 07/21/2006 Outpatient Historical [facility] Medicine [place] [address] [address] Jenelle Monreal, DIE MAKER STAMPING [address] [place] [address] Anxiety State, Unspecified (Primary Dx); Hx of Past Noncompliance Social History Tobacco Use Types Packs/Day Years Used Date Smoking Tobacco: Never Assessed Comments Unknown Sex and Gender Information Value Date Recorded Sex Assigned at Not on file Legal Sex Female 2:53 AM CUSTOMER ADVISOR Gender Identity Not on file Sexual Orientation Not on file documented as of this encounter Plan of Treatment Not on file documented as of this encounter Visit Diagnoses Diagnosis Anxiety state, unspecified- Primary Personal history of noncompliance with medical treatment, presenting hazards to health documented in this encounter Care Teams Casting Molder Relationship Specialty Start Date End Date Gage Ovalles APRN PCP - General Nurse Practitioner Family 02/08/19 documented as of this encounter
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
--- OUTSIDE RECORDS SUMMARY | 2025-01-10 19:33 | XMS_ITS | Encounter Summary ---
Author Organization [facility] Address [address] [place] [address] Care Team Providers Care Centerless Grinder Name Role Phone Gage Ovalles APRN Primary Care Provider [phone] Encounter Details Date Type Department Care Team (Latest Contact Info) Description 11/29/2001 Outpatient Historical [facility] [address] [place] [phone] Jose Guadalupe Escobar DO NO ADDRESS ON FILE PALPITATIONS (Primary Dx); SPASM OF MUSCLE Social History Tobacco Use Types Packs/Day Years Used Date Smoking Tobacco: Never Assessed Comments Unknown Sex and Gender Information Value Date Recorded Sex Assigned at Not on file Legal Sex Female 2:53 AM DISPATCHER RADIO Gender Identity Not on file Sexual Orientation Not on file documented as of this encounter Plan of Treatment Not on file documented as of this encounter Visit Diagnoses Diagnosis Palpitations- Primary Spasm of muscle documented in this encounter Care Teams Centerless Grinder Relationship Specialty Start Date End Date Gage Ovalles APRN PCP - General Nurse Practitioner Family 02/08/19 documented as of this encounter
--- OUTSIDE RECORDS SUMMARY | 2025-01-10 19:33 | XMS_ITS | Encounter Summary ---
Author Organization [facility] Address [address] [facility] [place] [address] Care Team Providers Care School Library Media Program Director Name Role Phone Gage Ovalles APRN Primary Care Provider [phone] Encounter Details Date Type Department Care Team (Late st Contact Info) Description 09/27/2006 Outpatient Historical [facility] Non-Staff, Physician NO ADDRESS ON FILE Social History Tobacco Use Types Packs/Day Years Used Date Smoking Tobacco: Never Assessed Comments Unknown Sex and Gender Information Value Date Recorded Sex Assigned at Not on file Legal Sex Female 2:53 AM NIGHT BAKER Gender Identity Not on file Sexual Orientation Not on file documented as of this encounter Plan of Treatment Not on file documented as of this encounter Procedures Procedure Name Priority Date/Time Associated Diagnosis Comments MRI LUMBAR WO CONTRAST Routine 09/27/2006 6:23 AM CDT documented in this encounter Results * MRI LUMBAR WO CONTRAST (09/27/2006 6:23 AM CDT) Anatomical Region Laterality Modality Spine Other 09/27/2006 6:23 AM CDT Narrative 09/27/2006 6:23 AM CDT The patient has low back pain and left leg pain. The lumbar spine is normal in sagittal alignment. The cauda equina and conus medullaris appear normal. No intradural disease is present. STIR images show no sites of abnormal signal in the lumbar spine. The paraspinal tissues are unremarkable in appearance. L1-L2: Normal. L2-L3: Normal. L3-L4: Normal. L4-L5: Normal. L5-S1: Normal. Impression: No appreciable disease. - Dictated By: Marco Marmolejo M.D. Electronically Signed By: Marco Marmolejo M.D. Date Signed: 09/27/06 Procedure Note 05/17/2009 The patient has low back pain and left leg pain. The lumbar spine is normal in sagittal alignment. The cauda equina andconus medullaris appear normal. No intradural disease is present. STIR images show no sites of abnormalsignal in the lumbar spine. The paraspinal tissues are unremarkable in appearance. L1-L2: Normal. L2-L3: Normal. L3-L4: Normal. L4-L5: Normal. L5-S1: Normal. Impression: No appreciable disease. - Dictated By: Marco Marmolejo M.D. Electronically Signed By: Marco Marmolejo M.D. Date Signed: 09/27/06 us Physician Non-Staff MR ORDERABLES Final Result documented in this encounter Visit Diagnoses Not on filedocumented in this encounter Care Teams School Library Media Program Director Relationship Specialty Start Date End Date Gage Ovalles APRN PCP - General Nurse Practitioner Family 02/08/19 documented as of this encounter
--- OUTSIDE RECORDS SUMMARY | 2025-01-10 19:33 | XMS_ITS | Encounter Summary ---
Author Organization [facility] Address [address] [place]: Epic Prelude ADT [place] [address] Care Team Providers Care Registered Nurse Nursery Name Role Phone Gage Ovalles APRN Primary Care Provider [phone] Encounter Details Date Type Department Care Team (Late st Contact Info) Description 09/14/2001 Outpatient Historical Non-Staff, Physician NO ADDRESS ON FILE Social History Tobacco Use Types Packs/Day Years Used Date Smoking Tobacco: Never Assessed Comments Unknown Sex and Gender Information Value Date Recorded Sex Assigned at Not on file Legal Sex Female 2:53 AM SENIOR ELECTRONICS TECHNICIAN Gender Identity Not on file Sexual Orientation Not on file documented as of this encounter Plan of Treatment Not on file documented as of this encounter Visit Diagnoses Not on filedocumented in this encounter Care Teams Registered Nurse Nursery Relationship Specialty Start Date End Date Gage Ovalles APRN PCP - General Nurse Practitioner Family 02/08/19 documented as of this encounter
--- OUTSIDE RECORDS SUMMARY | 2025-01-10 19:33 | XMS_ITS | Encounter Summary ---
Author Organization [facility] Address [address] [place] [address] Care Team Providers Care Shirt Sewer Name Role Phone Gage Ovalles APRN Primary Care Provider [phone] Encounter Details Date Type Department Care Team (Latest Contact Info) Description 03/22/2002 Outpatient Historical [facility] Medicine [address] [phone] Mellissa Collier MD NO ADDRESS ON FILE JAW DISEASE NOS (Primary Dx) Social History Tobacco Use Types Packs/Day Years Used Date Smoking Tobacco: Never Assessed Comments Unknown Sex and Gender Information Value Date Recorded Sex Assigned at Not on file Legal Sex Female 2:53 AM THROAT CUTTER Gender Identity Not on file Sexual Orientation Not on file documented as of this encounter Plan of Treatment Not on file documented as of this encounter Visit Diagnoses Diagnosis Unspecified disease of the jaws- Primary documented in this encounter Care Teams Shirt Sewer Relationship Specialty Start Date End Date Gage Ovalles APRN PCP - General Nurse Practitioner Family 02/08/19 documented as of this encounter
--- OUTSIDE RECORDS SUMMARY | 2025-01-10 19:33 | XMS_ITS | Encounter Summary ---
Author Organization [facility] Address [address] [place] [address] Care Team Providers Care Youth Development Professional Name Role Phone Gage Ovalles APRN Primary Care Provider [phone] Encounter Details Date Type Department Care Team (Late st Contact Info) Description 03/20/2007 Outpatient Historical [facility] Plastic Surgery [address] [place] [address] Matt Roca MD [address] [place] [address] Sebaceous Cyst (Primary Dx) Social History Tobacco Use Types Packs/Day Years Used Date Smoking Tobacco: Never Assessed Comments Unknown Sex and Gender Information Value Date Recorded Sex Assigned at Not on file Legal Sex Female 2:53 AM PARTS PICKER Gender Identity Not on file Sexual Orientation Not on file documented as of this encounter Plan of Treatment Not on file documented as of this encounter Visit Diagnoses Diagnosis Sebaceous cyst- Primary documented in this encounter Care Teams Youth Development Professional Relationship Specialty Start Date End Date Gage Ovalles APRN PCP - General Nurse Practitioner Family 02/08/19 documented as of this encounter
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
--- OUTSIDE RECORDS SUMMARY | 2025-01-10 19:33 | XMS_ITS | Encounter Summary ---
Author Organization [facility] Address [address] [place] [address] Care Team Providers Care Electric Meter Reader Name Role Phone Gage Ovalles APRN Primary Care Provider [phone] Encounter Details Date Type Department Care Team (Late st Contact Info) Description 11/22/[address] [facility] [address] [place] [address] Marko Tan MD NO ADDRESS ON FILE Social History Tobacco Use Types Packs/Day Years Used Date Smoking Tobacco: Never Assessed Comments Unknown Sex and Gender Information Value Date Recorded Sex Assigned at Not on file Legal Sex Female 2:53 AM PLASTER MECHANIC Gender Identity Not on file Sexual Orientation Not on file documented as of this encounter Plan of Treatment Not on file documented as of this encounter Visit Diagnoses Not on filedocumented in this encounter Care Teams Electric Meter Reader Relationship Specialty Start Date End Date Gage Ovalles APRN PCP - General Nurse Practitioner Family 02/08/19 documented as of this encounter
--- OUTSIDE RECORDS SUMMARY | 2025-01-10 19:33 | XMS_ITS | Encounter Summary ---
Author Organization [facility] Address [address] [place] [address] Care Team Providers Care Computer Patternmaker Name Role Phone Gage Ovalles APRN Primary Care Provider [phone] Encounter Details Date Type Department Care Team (Latest Contact Info) Description 01/17/2007 Outpatient Historical [facility] Family Medicine- [address] [place] [address] Velasquez [place], [place] NO ADDRESS ON FILE Unspecified Infective Otitis Externa (Primary Dx) Social History Tobacco Use Types Packs/Day Years Used Date Smoking Tobacco: Never Assessed Comments Unknown Sex and Gender Information Value Date Recorded Sex Assigned at Not on file Legal Sex Female 2:53 AM FLAT KNITTER Gender Identity Not on file Sexual Orientation Not on file documented as of this encounter Plan of Treatment Not on file documented as of this encounter Visit Diagnoses Diagnosis Infective otitis externa, unspecified- Primary documented in this encounter Care Teams Computer Patternmaker Relationship Specialty Start Date End Date Gage Ovalles APRN PCP - General Nurse Practitioner Family 02/08/19 documented as of this encounter
--- OUTSIDE RECORDS SUMMARY | 2025-01-10 19:33 | XMS_ITS | Encounter Summary ---
Author Organization [facility] Address [address] [place]upe: Epic Prelude ADT [place] [address] Care Team Providers Care Community Youth Secretary Name Role Phone Gage Ovalles APRN Primary Care Provider [phone] Encounter Details Date Type Department Care Team (Late st Contact Info) Description 02/14/2001 Outpatient Historical [facility], Physician NO ADDRESS ON FILE Social History Tobacco Use Types Packs/Day Years Used Date Smoking Tobacco: Never Assessed Comments Unknown Sex and Gender Information Value Date Recorded Sex Assigned at Not on file Legal Sex Female 2:53 AM NURSE CHEMICAL DEPENDENCY Gender Identity Not on file Sexual Orientation Not on file documented as of this encounter Plan of Treatment Not on file documented as of this encounter Visit Diagnoses Not on filedocumented in this encounter Care Teams Community Youth Secretary Relationship Specialty Start Date End Date Gage Ovalles APRN PCP - General Nurse Practitioner Family 02/08/19 documented as of this encounter
--- OUTSIDE RECORDS SUMMARY | 2025-01-10 19:33 | XMS_ITS | Encounter Summary ---
Author Organization [facility] Address [address] [place] [address] Care Team Providers Care Cinema Operator Name Role Phone Gage Ovalles APRN Primary Care Provider [phone] Encounter Details Date Type Department Care Team (Latest Contact Info) Description 10/05/2002 Outpatient Historical [facility] [address] [place] [address] Jose Guadalupe Escobar DO NO ADDRESS ON FILE NAUSEA WITH VOMITING (Primary Dx) Social History Tobacco Use Types Packs/Day Years Used Date Smoking Tobacco: Never Assessed Comments Unknown Sex and Gender Information Value Date Recorded Sex Assigned at Not on file Legal Sex Female 2:53 AM MANAGER SUPPORT SERVICES Gender Identity Not on file Sexual Orientation Not on file documented as of this encounter Plan of Treatment Not on file documented as of this encounter Visit Diagnoses Diagnosis Nausea with vomiting- Primary documented in this encounter Care Teams Cinema Operator Relationship Specialty Start Date End Date Gage Ovalles APRN PCP - General Nurse Practitioner Family 02/08/19 documented as of this encounter
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
--- OUTSIDE RECORDS SUMMARY | 2025-01-10 19:33 | XMS_ITS | Encounter Summary ---
Author Organization [facility] Address [address] [place] [address] Care Team Providers Care Application Development Project Manager Name Role Phone Gage Ovalles APRN Primary Care Provider [phone] Encounter Details Date Type Department Care Team (Late st Contact Info) Description 02/07/2017 Ancillary Orders [facility] Admitting [address] [place] [address] Erica Hua, 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 Exam: XR ABDOMEN ACUTE SERIES W CXR Date/Time of Exam: 02/07/2017 4:52 PM Reason For Exam: Abdominal pain, unspecified location. Comparison: None Findings: The heart size is normal. The lungs are clear. No pleural fluid. No small or large bowel distention or free air. Clips overlie the upper abdominal quadrants. The small calcifications in the left pelvis likely represent phleboliths. No acute osseous abnormality. IMPRESSION: 1. No significant abnormality. [id number] Narrative Procedure Note Keny Welch MD - 02/14/2017 IMPRESSION IMPRESSION: Please see below. Exam: XR ABDOMEN ACUTE SERIES W CXR Date/Time of Exam: 02/07/2017 4:52 PM Reason For Exam: Abdominal pain, unspecified location. Comparison: None Findings: The heart size is normal. The lungs are clear. No pleural fluid. No small or large bowel distention or free air. Clips overlie the upper abdominal quadrants. The small calcifications in the left pelvis likely represent phleboliths. No acute osseous abnormality. IMPRESSION: 1. No significant abnormality. [id number] Erica Hua MACHINE SETUP OPERATOR DIAGNOSTIC IMAGING ORDERABLES Final Result documented in this encounter Visit Diagnoses Diagnosis Abdominal pain, unspecified location Abdominal pain, unspecified location documented in this encounter Care Teams Application Development Project Manager Relationship Specialty Start Date End Date Gage Ovalles APRN PCP - General Nurse Practitioner Family 02/08/19 documented as of this encounter
--- OUTSIDE RECORDS SUMMARY | 2025-01-10 19:33 | XMS_ITS | Encounter Summary ---
Author Organization [facility] Address [address] [place] [address] Care Team Providers Care Assembler Camper Name Role Phone Gage Ovalles APRN Primary Care Provider [phone] Reason for Referral * MRI (Routine) - Closed Specialty Diagnoses / Procedures Referred By Contac t Referred To Contact Diagnoses Chronic thoracic spine pain Procedures MRI THORACIC WO CONTRAST Ana Philip FNP [address] [place] [address] Phone: tel: fax: [facility] Pre-Registration [place] CALL TO MAKE APPOINTMENT ONLY [address] [place] [address] Phone: tel: fax: Referral ID Status Reason Start Date Expiration Date V isits Requested Visits Authorized [id number] Closed [facility] TO SCHEDULE ([facility]) 04/20/2018 05/21/2019 1 1 * MRI (Routine) - Closed Specialty Diagnoses / Procedures Referred By Contac t Referred To Contact Diagnoses Cervical pain Procedures MRI CERVICAL WO CONTRAST Ana Philip FNP [address] [place] [address] Phone: tel: fax: [facility] Pre-Registration [place] CALL TO MAKE APPOINTMENT ONLY [address] [facility] [place] [address] Phone: tel: fax: Referral ID Status Reason Start Date Expiration Date V isits Requested Visits Authorized [id number] Closed [facility] [place] 04/20/2018 05/21/2019 1 1 * MRI (Routine) - Closed Specialty Diagnoses / Procedures Referred By Trae murcia Referred To Contact Diagnoses Lumbar back pain Procedures MRI LUMBAR WO CONTRAST Ana Philip FNP [address] [place] [address] Phone: tel: fax: [facility]-Registration [place] CALL TO MAKE APPOINTMENT ONLY [address] [place] [address] Phone: tel: fax: Referral ID Status Reason Start Date Expiration Date V isits Requested Visits Authorized [id number] Closed [facility] [place] 04/20/2018 05/21/2019 1 1 Encounter Details Date Type Department Care Team (Latest Contact Info) Description 04/20/2018 Ancillary Orders [facility] [place] CALL TO MAKE APPOINTMENT ONLY [address] [facility] [place] [address] Ana Philip FNP [address] [place] [address] Lumbar back pain; Cervical pain; Chronic thoracic spine pain Social History Tobacco Use Types Packs/Day Years Used Date Smoking Tobacco: Every Day Cigarettes 0.5 15 Smokeless Tobacco: Never Alcohol Use Standard Drinks/Week Comments No 0 (1 standard drink = 0.6 oz pur e alcohol) Comments No Sex and Gender Information Value Date Recorded Sex Assigned at Not on file Legal Sex Female 2:53 AM SEED SORTER Gender Identity Not on file Sexual Orientation Not on file Occupation Industry Job Start Date Job End Date Not on file Not on file Not on file Not on file Not on file Not on file Not on file Not on file documented as of this encounter Plan of Treatment Not on file documented as of this encounter Results * MRI THORACIC WO CONTRAST (06/21/2018 3:14 PM SEED SORTER) Anatomical Region Laterality Modality Spine Magnetic Resonan ce, Other 06/21/2018 3:14 PM SEED SORTER Impressions 06/22/2018 3:17 PM SEED SORTER IMPRESSION: Please see below. Multiplanar images of the thoracic spine were obtained without IV gadolinium. Reason For Exam: See Diagnosis. Diagnosis: Chronic thoracic spine pain; Chronic thoracic spine pain. Comparison: None Findings: Normal height, alignment and signal characteristics of the thoracic vertebra. Disc desiccation and a very mild disc bulge at T8-T9 without cord compression or significant foraminal narrowing. The remainder of the disc space levels are unremarkable. No abnormal cord signal. IMPRESSION: 1. Mild degenerative change at T8-T9. [id number] Narrative Procedure Note Keny Welch MD - 06/22/2018 IMPRESSION: Please see below. Multiplanar images of the thoracic spine were obtained without IV gadolinium. Reason For Exam: See Diagnosis. Diagnosis: Chronic thoracic spine pain; Chronic thoracic spine pain. Comparison: None Findings: Normal height, alignment and signal characteristics of the thoracic vertebra. Disc desiccation and a very mild disc bulge at T8-T9 without cord compression or significant foraminal narrowing. The remainder of the disc space levels are unremarkable. No abnormal cord signal. IMPRESSION: 1. Mild degenerative change at T8-T9. [id number] Ana Philip FORWARDER OPERATOR MR ORDERABLES Final Res ult * MRI LUMBAR WO CONTRAST (06/21/2018 3:13 PM SEED SORTER) Anatomical Region Laterality Modality Spine Magnetic Resonan ce, Other 06/21/2018 3:13 PM SEED SORTER Impressions 06/22/2018 3:17 PM SEED SORTER IMPRESSION: Please see below. Multiplanar images of the lumbar spine were obtained without IV gadolinium. Reason For Exam: See Diagnosis. Diagnosis: Lumbar back pain. Comparison: Lumbar spine MRI 09/27/2006. Findings: Normal height, alignment and signal characteristics of the lumbar vertebra. The conus terminates at T12-L1 and is unremarkable. Normal appearance of the cauda equina. No disc herniation. Mild L3-4, L4-5 and L5-S1 facet degenerative changes. No central canal or foraminal narrowing. The paraspinal soft tissues are unremarkable. IMPRESSION: 1. Mild lower lumbar facet degenerative changes without significant central canal or foraminal narrowing. [id number] Narrative Procedure Note Keny Welch MD - 06/22/2018 IMPRESSION: Please see below. Multiplanar images of the lumbar spine were obtained without IV gadolinium. Reason For Exam: See Diagnosis. Diagnosis: Lumbar back pain. Comparison: Lumbar spine MRI 09/27/2006. Findings: Normal height, alignment and signal characteristics of the lumbar vertebra. The conus terminates at T12-L1 and is unremarkable. Normal appearance of the cauda equina. No disc herniation. Mild L3-4, L4-5 and L5-S1 facet degenerative changes. No central canal or foraminal narrowing. The paraspinal soft tissues are unremarkable. IMPRESSION: 1. Mild lower lumbar facet degenerative changes without significant central canal or foraminal narrowing. [id number] Ana CLEMONS MR ORDERABLES Final Res ult * MRI CERVICAL WO CONTRAST (06/21/2018 3:13 PM SEED SORTER) Anatomical Region Laterality Modality Spine Magnetic Resonan ce, Other 06/21/2018 3:13 PM SEED SORTER Impressions 06/22/2018 3:17 PM SEED SORTER IMPRESSION: Please see below. Exam: MRI CERVICAL WO CONTRAST Date/Time of Exam: 06/21/2018 3:13 PM Reason For Exam: See Diagnosis. Diagnosis: Cervical pain. Technique: Multiplanar imaging of the cervical spine was performed without IV gadolinium. Comparison: None Findings: Straightening of the cervical lordosis. No abnormal marrow signal. Normal relationships at the foramen magnum and appearance of the cord. The C1-2 through C4-5 disc space levels are unremarkable. C5-6: Mild central disc protrusion. The foramina are patent. Mild left facet degenerative changes. C6-7: Unremarkable. C7-T1: Unremarkable. IMPRESSION: 1. Mild degenerative changes at C5-6. [id number] Narrative Procedure Note Keny Welch MD - 06/22/2018 IMPRESSION: Please see below. Exam: MRI CERVICAL WO CONTRAST Date/Time of Exam: 06/21/2018 3:13 PM Reason For Exam: See Diagnosis. Diagnosis: Cervical pain. Technique: Multiplanar imaging of the cervical spine was performed without IV gadolinium. Comparison: None Findings: Straightening of the cervical lordosis. No abnormal marrow signal. Normal relationships at the foramen magnum and appearance of the cord. The C1-2 through C4-5 disc space levels are unremarkable. C5-6: Mild central disc protrusion. The foramina are patent. Mild left facet degenerative changes. C6-7: Unremarkable. C7-T1: Unremarkable. IMPRESSION: 1. Mild degenerative changes at C5-6. [id number] Ana Philip FORWARDER OPERATOR MR ORDERABLES Final Res ult documented in this encounter Visit Diagnoses Diagnosis Lumbar back pain Lumbago Cervical pain Cervicalgia Chronic thoracic spine pain Pain in thoracic spine Cervical pain Cervicalgia Lumbar back pain Lumbago Chronic thoracic spine pain Pain in thoracic spine documented in this encounter Care Teams Assembler Camper Relationship Specialty Start Date End Date Gage Ovalles APRN PCP - General Nurse Practitioner Family 02/08/19 documented as of this encounter
--- OUTSIDE RECORDS SUMMARY | 2025-01-10 19:33 | XMS_ITS | Encounter Summary ---
Author Organization [facility] Address [address] [place] [facility] [place] [address] Care Team Providers Care Tax Lawyer Name Role Phone Gage Ovalles APRN Primary Care Provider [phone] Encounter Details Date Type Department Care Team (Latest Contact Info) Description 05/10/2005 Outpatient Historical [facility] Family Medicine- [address] [place] [address] Mellissa Collier MD NO ADDRESS ON FILE CERVICALGIA (Primary Dx); JOINT PAIN-SHLDER; SPASM OF MUSCLE Social History Tobacco Use Types Packs/Day Years Used Date Smoking Tobacco: Never Assessed Comments Unknown Sex and Gender Information Value Date Recorded Sex Assigned at Not on file Legal 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
--- OUTSIDE RECORDS SUMMARY | 2025-01-10 19:33 | XMS_ITS | Encounter Summary ---
Author Organization [facility] Address [address] [place] [address] Care Team Providers Care Supervisor Cereal Name Role Phone Gage Ovalles APRN Primary Care Provider [phone] Encounter Details Date Type Department Care Team (Latest Contact Info) Description 03/21/2002 Outpatient [facility] [address] [place] [address] Evin Head MD [address] [facility] [address] [place] [address] VAGINITIS NOS (Primary Dx); FEMALE GENITAL SYMPTOMS NOS Social History Tobacco Use Types Packs/Day Years Used Date Smoking Tobacco: Never Assessed Comments Unknown Sex and Gender Information Value Date Recorded Sex Assigned at Not on file 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
--- OUTSIDE RECORDS SUMMARY | 2025-01-10 19:33 | XMS_ITS | Encounter Summary ---
Author Organization [facility] Address [address] [place]: Epic Prelude ADT [place] [address] Care Team Providers Care Salesperson Floor Coverings Name Role Phone Gage Ovalles APRN Primary Care Provider [phone] Encounter Details Date Type Department Care Team (Late st Contact Info) Description 03/21/2002 Outpatient Historical Non-Staff, Physician NO ADDRESS ON FILE Social History Tobacco Use Types Packs/Day Years Used Date Smoking Tobacco: Never Assessed Comments Unknown Sex and Gender Information Value Date Recorded Sex Assigned at Not on file Legal Sex Female 2:53 AM FEED MIXER Gender Identity Not on file Sexual Orientation Not on file documented as of this encounter Plan of Treatment Not on file documented as of this encounter Visit Diagnoses Not on filedocumented in this encounter Care Teams Salesperson Floor Coverings Relationship Specialty Start Date End Date Gage Ovalles APRN PCP - General Nurse Practitioner Family 02/08/19 documented as of this encounter
--- OUTSIDE RECORDS SUMMARY | 2025-01-10 19:33 | XMS_ITS | Encounter Summary ---
Author Organization [facility] Address [address] [place] [address] Care Team Providers Care Chauffeur Airport Limousine Name Role Phone Gage Ovalles APRN Primary Care Provider [phone] Encounter Details Date Type Department Care Team (Latest Contact Info) Description 12/02/2005 Outpatient [facility] Medicine [address] [address] Luke Monreal NP NO ADDRESS ON FILE Unspecified Infective Otitis Externa (Primary Dx); Cellulitis and Abscess of Unspecified Site Social History Tobacco Use Types Packs/Day Years Used Date Smoking Tobacco: Never Assessed Comments Unknown Sex and Gender Information Value Date Recorded Sex Assigned at Not on file Legal 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
--- OUTSIDE RECORDS SUMMARY | 2025-01-10 19:33 | XMS_ITS | Encounter Summary ---
Author Organization [facility] Address [address] [place] [address] Care Team Providers Care Keypunch Operators Supervisor Name Role Phone Gage Ovalles APRN Primary Care Provider [phone] Encounter Details Date Type Department Care Team (Latest Contact Info) Description 09/07/2006 Outpatient Historical [facility] Family Medicine- [address] [place] [address] Luke Monreal NP NO ADDRESS ON FILE Lumbago (Primary Dx); Acute Pharyngitis; Other B-Complex Deficiencies Social History Tobacco Use Types Packs/Day Years Used Date Smoking Tobacco: Never Assessed Comments Unknown Sex and Gender Information Value Date Recorded Sex Assigned at Not on file 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
--- OUTSIDE RECORDS SUMMARY | 2025-01-10 19:33 | XMS_ITS | Encounter Summary ---
Author Organization [facility] Address [address] [place] [address] Care Team Providers Care Letterpress Printing Machinist Name Role Phone Gage Ovalles APRN Primary Care Provider [phone] Encounter Details Date Type Department Care Team (Latest Contact Info) Description 11/30/2006 Outpatient Historical [facility] Medicine [place] [address] [facility] [address] [place] [phone] Jenelle Monreal, ADMINISTRATOR [facility] [address] [place] [phone] Other Abnormal Clinical Finding (Primary Dx) Social History Tobacco Use Types Packs/Day Years Used Date Smoking Tobacco: Never Assessed Comments Unknown Sex and Gender Information Value Date Recorded Sex Assigned at Not on file 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
--- OUTSIDE RECORDS SUMMARY | 2025-01-10 19:33 | XMS_ITS | Encounter Summary ---
Author Organization [facility] Address [address] [place] [address] Care Team Providers Care Ase Master Mechanic Name Role Phone Gage Ovalles APRN Primary Care Provider [phone] Encounter Details Date Type Department Care Team (Latest Contact Info) Description 03/14/2007 Outpatient [facility] Medicine [place] [address] [address] Jenelle Monreal, LABORER ELECTROPLATING [address] [place] [address] Leiomyoma of Uterus, Unspecified (Primary Dx); Unspecified Vaginitis and Vulvovaginitis; Other B-Complex Deficiencies Social History Tobacco Use Types Packs/Day Years Used Date Smoking Tobacco: Never Assessed Comments Unknown Sex and Gender Information Value Date Recorded Sex Assigned at Not on file Legal Sex Female 2:53 AM MOP HANDLE 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
--- OUTSIDE RECORDS SUMMARY | 2025-01-10 19:33 | XMS_ITS | Encounter Summary ---
Author Organization [facility] Address [address] [place] [address] Care Team Providers Care Tool Storage Attendant Name Role Phone Gage Ovalles APRN Primary Care Provider [phone] Encounter Details Date Type Department Care Team (Latest Contact Info) Description 10/13/2001 Outpatient Historical [facility] [address] [place] [address] Evin Head MD [address] [facility] [address] [place] [phone] FEM PELV INFLAM DIS NOS (Primary Dx) Social History Tobacco Use Types Packs/Day Years Used Date Smoking Tobacco: Never Assessed Comments Unknown Sex and Gender Information Value Date Recorded Sex Assigned at Not on file Legal Sex Female 2:53 AM COUNTY EXTENSION 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
--- OUTSIDE RECORDS SUMMARY | 2025-01-10 19:33 | XMS_ITS | Encounter Summary ---
Author Organization [facility] Address [address] [facility] [place] [address] Care Team Providers Care Data Entry Manager Name Role Phone Gage Ovalles APRN Primary Care Provider [phone] Encounter Details Date Type Department Care Team (Late st Contact Info) Description 06/30/2005 Outpatient Historical [facility] Luke Monreal, SAPPHIRE NO ADDRESS ON FILE Social History Tobacco Use Types Packs/Day Years Used Date Smoking Tobacco: Never Assessed Comments Unknown Sex and Gender Information Value Date Recorded Sex Assigned at Not on file Legal Sex Female 2:53 AM ERP DEVELOPER Gender Identity Not on file Sexual Orientation Not on file documented as of this encounter Plan of Treatment Not on file documented as of this encounter Visit Diagnoses Not on filedocumented in this encounter Care Teams Data Entry Manager Relationship Specialty Start Date End Date Gage Ovalles APRN PCP - General Nurse Practitioner Family 02/08/19 documented as of this encounter
--- OUTSIDE RECORDS SUMMARY | 2025-01-10 19:33 | XMS_ITS | Encounter Summary ---
Author Organization [facility] Address [address] [place] [address] Care Team Providers Care Sheet Cutter Name Role Phone Gage Ovalles APRN Primary Care Provider [phone] Encounter Details Date Type Department Care Team (Latest Contact Info) Description 11/24/2006 Outpatient [facility] Medicine [place] [address] [facility] [address] [place] [address] Jenelle Monreal, ARTISTS' BOOKING REPRESENTATIVE [address] [place] [address] Acute Upper Respiratory Infections of Unspecified Site (Primary Dx); Other Malaise and Fatigue Social History Tobacco Use Types Packs/Day Years Used Date Smoking Tobacco: Never Assessed Comments Unknown Sex and Gender Information Value Date Recorded Sex Assigned at Not on file Legal Sex Female 2:53 AM IRON HANDLER Gender Identity Not on file Sexual Orientation Not on file documented as of this encounter Plan of Treatment Not on file documented as of this encounter Visit Diagnoses Diagnosis Acute upper respiratory infections of unspecified site- Primary Other malaise and fatigue documented in this encounter Care Teams Sheet Cutter Relationship Specialty Start Date End Date Gage Ovalles APRN PCP - General Nurse Practitioner Family 02/08/19 documented as of this encounter
--- OUTSIDE RECORDS SUMMARY | 2025-01-10 19:33 | XMS_ITS | Encounter Summary ---
Author Organization [facility] Address [address] [place] [address] Care Team Providers Care Internet Consultant Name Role Phone Gage Ovalles APRN Primary Care Provider [phone] Encounter Details Date Type Department Care Team (Latest Contact Info) Description 10/18/2002 Outpatient Historical [facility] Medicine [address] [address] Mellissa Collier MD NO ADDRESS ON FILE FX PHALANX, FOOT-CLOSED (Primary Dx) Social History Tobacco Use Types Packs/Day Years Used Date Smoking Tobacco: Never Assessed Comments Unknown Sex and Gender Information Value Date Recorded Sex Assigned at Not on file Legal Sex Female 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
--- OUTSIDE RECORDS SUMMARY | 2025-01-10 19:33 | XMS_ITS | Encounter Summary ---
Author Organization [facility] Address [address] [place] [address] Care Team Providers Care Interventional Technologist Name Role Phone Gage Ovalles APRN Primary Care Provider [phone] Encounter Details Date Type Department Care Team (Latest Contact Info) Description 05/03/2005 Outpatient Historical [address] [phone] Jenelle Monreal, PLATING EQUIPMENT TENDER [address] [place] [phone] ACUTE PHARYNGITIS (Primary Dx); CONJUNCTIVITIS NEC Social History Tobacco Use Types Packs/Day Years Used Date Smoking Tobacco: Never Assessed Comments Unknown Sex and Gender Information Value Date Recorded Sex Assigned at Not on file Legal Sex Female 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
--- OUTSIDE RECORDS SUMMARY | 2025-01-10 19:33 | XMS_ITS | Encounter Summary ---
Author Organization [facility] Address [address] [place] [address] Care Team Providers Care Vice President Biostatistics Name Role Phone Gage Ovalles APRN Primary Care Provider [phone] Encounter Details Date Type Department Care Team (Late st Contact Info) Description 01/24/2008 Outpatient Historical [facility] Procedures [address] 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
--- OUTSIDE RECORDS SUMMARY | 2025-01-10 19:33 | XMS_ITS | Encounter Summary ---
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
--- OUTSIDE RECORDS SUMMARY | 2025-01-10 19:33 | XMS_ITS | Encounter Summary ---
Author Organization [facility] Address [address] [place] [address] Care Team Providers Care Orthotic Finish Grinding Technician Name Role Phone aGge Ovalles APRN Primary Care Provider [phone] Encounter Details Date Type Department Care Team (Latest Contact Info) Description 02/22/2006 Outpatient [facility]- [address] [phone] Jenelle Monreal, LEAD CUSTOMER SERVICE REPRESENTATIVE [address] [place] [address] Pain in Joint, Forearm (Primary Dx); Enthesopathy of Unspecified Site Social History Tobacco Use Types Packs/Day Years Used Date Smoking Tobacco: Never Assessed Comments Unknown Sex and Gender Information Value Date Recorded Sex Assigned at Not on file Legal Sex Female 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
--- OUTSIDE RECORDS SUMMARY | 2025-01-10 19:33 | XMS_ITS | Encounter Summary ---
Author Organization [facility] Address [address] [place] [address] Care Team Providers Care Banquet Captain Name Role Phone Gage Ovalles APRN Primary Care Provider [phone] Encounter Details Date Type Department Care Team (Latest Contact Info) Description 02/08/[address] 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
--- OUTSIDE RECORDS SUMMARY | 2025-01-10 19:33 | XMS_ITS | Encounter Summary ---
Author Organization [facility] Address [address] [facility] [place] [address] Care Team Providers Care Blankmaker Name Role Phone Gage Ovalles APRN Primary Care Provider [phone] Encounter Details Date Type Department Care Team (Late st Contact Info) Description 11/09/2005 Outpatient Historical [facility] Luke Monreal, SAPPHIRE NO ADDRESS ON FILE Social History Tobacco Use Types Packs/Day Years Used Date Smoking Tobacco: Never Assessed Comments Unknown Sex and Gender Information Value Date Recorded Sex Assigned at Not on file Legal Sex Female 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 Left shoulder pain. MRI of the left shoulder was performed without contrast. The supraspinatus, infraspinatus, teres minor, and subscapularis are intact. There is no complete retracted tear of the rotator cuff. A small amount of bony edema is seen in the acromion laterally and a small amount of fluid is noted in the acromioclavicular joint and the adjacent soft tissues. This may reflect changes related to a subacute AC joint strain, but otherwise the acromioclavicular joint alignment is appropriate. There is a horizontal lateral acromion. There is no muscle atrophy. The long head biceps tendon is identified within the bicipital groove of the humerus. It is attaching the glenolabral complex. No linear labral tear. Paralabral cyst is identified. IMPRESSION: 1. Rotator cuff is intact. Tendons are appropriate in size and signal. 2. Mild amount of edema in the lateral acromion and AC joint may reflect a recent AC joint strain, but there is no offset of the joint. No fracture is identified. Otherwise, the exam is unremarkable. [facility] 1242 Dictated By: Karen Carlin M.D. Electronically Signed By: Karen Carlin M.D. Date Signed: 11/09/05 [facility] Procedure Note 05/16/2009 LEFT SHOULDER MRI WITHOUT FOR: Trauma. Left shoulder pain. MRI of the left shoulder was performed without contrast. Thesupraspinatus, infraspinatus, teres minor, and subscapularis are intact. There is no complete retracted tear of therotator cuff. A small amount of bony edema is seen in the acromion laterally and a small amount of fluidis noted in the acromioclavicular joint and the adjacent soft tissues. This may reflectchanges related to a subacute AC joint strain, but otherwise the acromioclavicular joint alignment isappropriate. There is a horizontal lateral acromion. There is no muscle atrophy. The long head biceps tendonis identified within the bicipital groove of the humerus. It is attaching the glenolabral complex.No linear labral tear. Paralabral cyst is identified. IMPRESSION: 1. Rotator cuff is intact. Tendons are appropriate in size and signal. 2. Mild amount of edema in the lateral acromion and AC joint may reflecta recent AC joint strain, but there is no offset of the joint. No fracture is identified. Otherwise, theexam is unremarkable. [facility] 1242 Dictated By: Karen Carlin M.D. Electronically Signed By: Karen Carlin M.D. Date Signed: 11/09/05 [facility] Luke Monreal NP MR ORDERABLES Final Result documented in this encounter Visit Diagnoses Not on filedocumented in this encounter Care Teams Blankmaker Relationship Specialty Start Date End Date Gage Ovalles APRN PCP - General Nurse Practitioner Family 02/08/19 documented as of this encounter
--- OUTSIDE RECORDS SUMMARY | 2025-01-10 19:33 | XMS_ITS | Encounter Summary ---
Author Organization [facility] Address [address] [place] [address] Care Team Providers Care Addressograph Operator Name Role Phone Gage Ovalles APRN Primary Care Provider Encounter Details Date Type Department Care Team (Late st Contact Info) Description 06/22/2008 Outpatient Historical [facility] [address] [place] [address] Ed, Physician NO ADDRESS ON FILE Dirk Bergeron MD [address] [place] [address] Social History Tobacco Use Types Packs/Day Years Used Date Smoking Tobacco: Never Assessed Comments No Sex and Gender Information Value Date Recorded Sex Assigned at Not on file Legal Sex Female 2:53 AM PATIENT CARE ASSISTANT Gender Identity Not on file Sexual Orientation Not on file documented as of this encounter Plan of Treatment Not on file documented as of this encounter Procedures Procedure Name Priority Date/Time Associated Diagnosis Comments CT SINUS FACIAL BONES W CONTRAST Routine 06/22/2008 9:57 PM PATIENT CARE ASSISTANT CBC WITH DIFFERENTIAL Stat 06/22/2008 8:01 PM PATIENT CARE ASSISTANT BASIC METABOLIC PANEL Stat 06/22/2008 8:01 PM PATIENT CARE ASSISTANT documented in this encounter Results * CT SINUS FACIAL BONES W CONTRAST (06/22/2008 9:57 PM PATIENT CARE ASSISTANT) Anatomical Region Laterality Modality Head Other 06/22/2008 9:57 PM PATIENT CARE ASSISTANT Narrative 06/22/2008 10:[address] of the face was performed after injection of 100 mL Optiray-240 contrast. There is marked thickening of the soft tissue surrounding the right external auditory canal and the appearance is most consistent with probable otitis externa. Several subcentimeter lymph nodes are noted in the right neck and contiguous with the right parotid gland. The right parotid gland is slightly hyperdense compared to the left but there is no abscess either within the parotid gland or remainder of the visualized neck. The right middle ear is aerated and the right mastoid air cells are clear. No bony destruction is identified. Mild mucosal thickening is noted in the ethmoidal air cells. The left middle air and mastoid air cells are clear. The visualized brain parenchyma is unremarkable. Impression: 1. Thickening, edema and enhancement consistent with otitis externa. There is some adenopathy in the right superior neck. Mild enhancement and edema. Asymmetry of the right parotid gland is consistent with probable mild reactive changes but there is no abscess. Right mastoid air cells are clear. - Dictated By: Karen Carlin M.D. Electronically Signed By: Karen Carlin M.D. Date Signed: 06/22/08 Procedure Note Karen Carlin MD - 06/22/2008 CT of the face was performed after injection of 100 mL Optiray-240contrast. There is marked thickening of the soft tissue surrounding the rightexternal auditory canal and the appearance is most consistent with probable otitis externa. Severalsubcentimeter lymph nodes are noted in the right neck and contiguous with the right parotid gland. The rightparotid gland is slightly hyperdense compared to the left but there is no abscess either within theparotid gland or remainder of the visualized neck. The right middle ear is aerated and the right mastoidair cells are clear. No bony destruction is identified. Mild mucosal thickening is noted in theethmoidal air cells. The left middle air and mastoid air cells are clear. The visualized brain parenchyma isunremarkable. Impression: 1. Thickening, edema and enhancement consistent with otitis externa. Thereis some adenopathy in the right superior neck. Mild enhancement and edema. Asymmetry of the rightparotid gland is consistent with probable mild reactive changes but there is no abscess. Right mastoid aircells are clear. - Dictated By: Karen Carlin M.D. Electronically Signed By: Karen Carlin M.D. Date Signed: 06/22/08 us Dirk Bergeron MD CT ORDERABLES Final Result * (ABNORMAL) CBC WITH DIFFERENTIAL (06/22/2008 8:01 PM PATIENT CARE ASSISTANT) PERIPHERAL BLOOD SMEAR REVIEW Automated Diff [facility] RBC 4.73 4.20 - 5.40 Mil/ul [facility] MCHC 34.6 30.0 - 35.0 g/dL [facility] LYMPHOCYTE ABSOLUTE 7.9(H) 1.2 - 4.0 K/ul [facility] LYMPHOCYTES 45.0(H) 24.0 - 44.0 % [facility] MCV 91.1 84.0 - 103.0 Fl [facility] BASOPHILS 0.6 0.0 - 1.0 % [facility] MPV 10.1 8.9 - 12.8 Fl [facility] BASOPHILS ABSOLUTE 0.1 0.0 - 0.2 K/ul [facility] HEMOGLOBIN 14.9 12.0 - 16.0 g/dL [facility] MONOCYTES 7.8 2.0 - 10.0 % [facility] RDW 13.9 11.0 - 14.5 % [facility] MONOCYTE ABSOLUTE 1.4(H) 0.1 - 0.6 K/ul [facility] WBC 17.6(H) 4.5 - 11.0 K/ul [facility] NEUTROPHILS 42.5 42.2 - 75.2 % [facility] MCH 31.5 27.0 - 34.0 pg [facility] NEUTROPHIL ABSOLUTE 7.5 2.0 - 8.0 K/ul [facility] HEMATOCRIT 43.1 36.0 - 46.0 % [facility] PLATELETS 436 140 - 440 K/ul [facility] EOSINOPHIL ABSOLUTE 0.7 0.0 - 0.7 K/ul [facility] EOSINOPHILS 4.1 0.0 - 7.0 % [facility] Blood specimen (specimen) 06/22/2008 8:01 PM PATIENT CARE ASSISTANT 06/22/2008 8:08 PM PATIENT CARE ASSISTANT us Dirk Bergeron MD HEMATOLOGY ORDERABLES Final Res ult INTERFACE SYSTEM Refer to clinic/hospital department [facility] CLIA# [id number] [address] [place] [address] * (ABNORMAL) BASIC METABOLIC PANEL (06/22/2008 8:01 PM PATIENT CARE ASSISTANT) BUN 5(L) 7 - 17 mg/dL [facility] CO2 26 22 - 32 mmol/l [facility] OSMOLALITY, CALCULATED 289 275 - 295 mOsm/Kg [facility] POTASSIUM 3.9 3.5 - 5.0 mEq/L [facility] CREATININE 0.7 0.7 - 1.2 mg/dL [facility] CALCIUM 10.3 8.4 - 10.5 mg/dL [facility] GLUCOSE 99 70 - 110 mg/dL [facility] CHLORIDE 106 95 - 110 mEq/L [facility] SODIUM 142 136 - 145 mEq/L [facility] ANION GAP 14 9 - 20 mEq/L [facility] Blood specimen (specimen) 06/22/2008 8:01 PM PATIENT CARE ASSISTANT 06/22/2008 8:08 PM PATIENT CARE ASSISTANT us Dirk Bergeron MD CHEMISTRY ORDERABLES Final Resu lt INTERFACE SYSTEM Refer to clinic/hospital department [facility] CLIA# [id number] [address] [place] [address] documented in this encounter Visit Diagnoses Not on filedocumented in this encounter Care Teams Addressograph Operator Relationship Specialty Start Date End Date Gage Ovalles, YONG PCP - General Nurse Practitioner Family 02/08/19 documented as of this encounter
--- OUTSIDE RECORDS SUMMARY | 2025-01-10 19:34 | XMS_ITS | Encounter Summary ---
Author Organization [facility] Address [address] [place] [address] Care Team Providers Care Purchasing Administrative Assistant Name Role Phone Gage Ovalles APRN Primary Care Provider [phone] Encounter Details Date Type Department Care Team (Late st Contact Info) Description 11/17/2007 Outpatient [facility] [address] [place] [address] Marko Tan MD NO ADDRESS ON FILE Social History Tobacco Use Types Packs/Day Years Used Date Smoking Tobacco: Never Assessed Comments Unknown Sex and Gender Information Value Date Recorded Sex Assigned at Not on file 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
--- OUTSIDE RECORDS SUMMARY | 2025-01-10 19:34 | XMS_ITS | Encounter Summary ---
Author Organization [facility] Address [address] [place] [address] Care Team Providers Care Negative Restorer Name Role Phone Gage Ovalles APRN Primary Care Provider [phone] Encounter Details Date Type Department Care Team (Latest Contact Info) Description 11/14/2007 Outpatient 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
--- OUTSIDE RECORDS SUMMARY | 2025-01-10 19:34 | XMS_ITS | Encounter Summary ---
Author Organization [facility] Address [address] [place] [address] Care Team Providers Care Marine Water Tender Name Role Phone Gage Ovalles APRN Primary Care Provider [phone] Encounter Details Date Type Department Care Team (Late st Contact Info) Description 12/08/2007 [facility] [address] [place] [address] Marko Tan MD NO ADDRESS ON FILE Social History Tobacco Use Types Packs/Day Years Used Date Smoking Tobacco: Never Assessed Comments Unknown Sex and Gender Information Value Date Recorded Sex Assigned at Not on file Legal Sex Female 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
--- OUTSIDE RECORDS SUMMARY | 2025-01-10 19:34 | XMS_ITS | Encounter Summary ---
Author Organization [facility] Address [address] [place] [address] Care Team Providers Care Scrap Picker Name Role Phone Gage Ovalles APRN Primary Care Provider [phone] Encounter Details Date Type Department Care Team (Latest Contact Info) Description 11/21/2007 Outpatient Historical [facility] Pain Management Procedures [address] 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 No report expected. Procedure Note 07/07/2008 Finalized by interface [employer] utility. No report expected. Marko Tna MD DIAGNOSTIC IMAGING ORDERABLES Final Result documented in this encounter Visit Diagnoses Diagnosis Cervicalgia Other symptoms referable to back Depressive disorder, not elsewhere classified Personal history of allergy to analgesic agent Personal history of allergy to other antibiotic agent documented in this encounter Care Teams Scrap Picker Relationship Specialty Start Date End Date Gage Ovalles, YONG PCP - General Nurse Practitioner Family 02/08/19 documented as of this encounter
--- OUTSIDE RECORDS SUMMARY | 2025-01-10 19:34 | XMS_ITS | Encounter Summary ---
Author Organization [facility] Address [address] 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 methodology. CDC recommends positive HCV antibody tests have confirmation testing. Low positive results should be confirmed with RIBA. This will determine if results are false positive. If a high positive result is obtained an HCV RNA may be run. The RNA test confirms infection and the level of the RNA, to some extent, helps guide treatment. The same specimen can be used for RIBA and will be held for 7 days. Please contact the Immunology lab if RIBA testing is desired. However, if HCV RNA testing is desired, a new specimen must be collected. Blood should be collected in SST (serum) or EDTA (plasma) separation tubes. Separate serum or plasma from whole blood within 6 hours of collection. Serum or plasma can be transported at refrigerated temperature or frozen and transported. HEPATITIS B CORE IGM Negative Negative [facility] HEPATITIS A IGM Negative Negative [facility] Blood specimen (specimen) 12/07/2007 4:05 PM CDT 12/08/2007 10:04 PM CDT Jenelle Monreal MANUFACTURING CHIEF ENGINEER CHEMISTRY ORDERABLES Final Result Performing Organization Address City/State/[facility] Co de Phone Number [facility] CLIA# [id number] [address] [place] [address] documented in this encounter Visit Diagnoses Not on filedocumented in this encounter Care Teams Air Brush Operator Relationship Specialty Start Date End Date Gage Ovalles APRN PCP - General Nurse Practitioner Family 02/08/19 documented as of this encounter
--- OUTSIDE RECORDS SUMMARY | 2025-01-10 19:34 | XMS_ITS | Encounter Summary ---
Author Organization [facility] Address [address] [place] [address] Care Team Providers Care Passenger Brakeman Name Role Phone Gage Ovalles APRN Primary Care Provider [phone] Encounter Details Date Type Department Care Team (Latest Contact Info) Description 12/05/2007 Outpatient [facility] [address] [facility] [address] [place] [address] Mic Garcia MD NO ADDRESS ON FILE Marko Tan MD NO ADDRESS ON FILE Headache; Unspecified Backache; Tobacco Use Disorder; Depressive Disorder, not Elsewhere Classified Social History Tobacco Use Types Packs/Day Years Used Date Smoking Tobacco: Never Assessed Comments Unknown Sex and Gender Information Value Date Recorded Sex Assigned at Not on file 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
[2025-01-10 19:54] LABS: Hematocrit 41.8 % (36-47); Hemoglobin 14.30 g/dL (11.27-16.99); Mean Corpuscular HGB Conc 34.2 g/dL (30-55); Mean Corpuscular Hemoglobin 32.0 pg (27-33); Mean Corpuscular Volume 93.5 fl (85-98); Nucleated Red Blood Cells % 0 %; Platelet Count 438 10^3/cmm (157-399); Red Blood Count 4.47 10^6/uL (3.85-5.65); White Blood Count 17.20 10^3/uL (3.29-11.43)
[2025-01-10 20:10] LABS: Alanine Aminotransferase 12 U/L (0-33); Albumin Level 4.1 g/dL (3.5-5.2); Alkaline Phosphatase 69 U/L (35-105); Anion Gap 19.4 (5-19); Aspartate Amino Transferase 12 U/L (0-32); Blood Urea Nitrogen 5 mg/dL (6-20); Calcium 9.3 mg/dL (8.5-10.5); Carbon Dioxide 26 mmol/L (22-29); Chloride 100 mmol/L (98-107); Creatinine Clr Calc Pharmacy 76.8619; Globulin 2.6 g/dL (1.3-4.6); Glucose 122 mg/dL (65-115); Osmolality Calculated 295 mOsm/kg (285-295); Sodium 143 mmol/L (136-145); Total Protein 6.7 g/dL (6.6-8.7)
[2025-01-10 20:12] LABS: Potassium 2.4 mmol/L (3.5-5.1)
--- NOTE | 2025-01-10 20:23 | CTR_ITS ---
PROCEDURE INFORMATION: Exam: CT Chest With Contrast; Diagnostic Exam date and time: 01/10/2025 8:39 PM Age: 49 years old Clinical indication: Abnormal findings; Abnormal lab test; Other: Potassium; Additional info: Infection TECHNIQUE: Imaging protocol: Diagnostic computed tomography of the chest with contrast. Radiation optimization: All CT scans at this facility use at least one of these dose optimization techniques: automated exposure control; mA and/or kV adjustment per patient size (includes targeted exams where dose is matched to clinical indication); or iterative reconstruction. Contrast material: OMNIPAQUE 350; Contrast volume: 100 ml; Contrast route: INTRAVENOUS (IV); COMPARISON: CT chest abdpel w/*[id number] 06/23/2023 9:46 AM RADIATION DOSE METRICS: Total DLP (mGy-cm): 268.9 FINDINGS: Thyroid: There are stable tiny low-attenuation foci in the visualized portions of thyroid. No new or enlarging thyroid nodule. Lungs: There is mild to moderate centrilobular emphysema. Minimal bronchial wall thickening noted. No visible endobronchial debris. No airspace disease. Pleural spaces: No pneumothorax. No pleural effusion. Heart: Heart size is normal. Coronary arteries: No visible coronary artery calcification. Lymph nodes: No enlarged lymph nodes. Vasculature: Normal caliber thoracic aorta without evidence of acute dissection. Normal caliber pulmonary artery tree without visible filling defect. Bones/joints: No acute fracture or destructive lesion. Soft tissues: Unremarkable. PROCEDURE INFORMATION: Exam: CT Abdomen And Pelvis With Contrast Exam date and time: 01/10/2025 8:39 PM Age: 49 years old Clinical indication: Abnormal findings; Abnormal lab test; Other: Potassium; Additional info: Infection TECHNIQUE: Imaging protocol: Computed tomography of the abdomen and pelvis with contrast. Radiation optimization: All CT scans at this facility use at least one of these dose optimization techniques: automated exposure control; mA and/or kV adjustment per patient size (includes targeted exams where dose is matched to clinical indication); or iterative reconstruction. Contrast material: OMNIPAQUE 350; Contrast volume: 100 ml; Contrast route: INTRAVENOUS (IV); COMPARISON: CT abdomen pelvis w con* [id number] 09/29/2018 9:44 AM RADIATION DOSE METRICS: Total DLP (mGy-cm): 393.6 FINDINGS: Liver: Fatty infiltration. There is a large low-density mass (70 Hounsfield units as compared to remaining liver attenuation of 100 Hounsfield units) in the caudal tip of the right hepatic lobe which is hypoattenuating with respect to normal liver parenchyma measuring 5.6 x 4.5 x 3.3 cm on late portal venous phase images. There are prominent draining veins associated with this lesion which are unchanged from prior. There is no visible central scar or radiating septa. Rather, there are heterogeneous internal septations. This same mass appeared isodense with respect to liver on prior exam likely reflecting slight differences in contrast bolus timing, but was smaller measuring 3.6 x 4.0 x 2.5 cm. Gallbladder and biliary ducts: Prior cholecystectomy. No biliary tree dilation or high-density retained stones appreciated. Pancreas: No pancreatic edema or visible mass. Spleen: Surgically absent. Adrenal glands: Normal configuration. Kidneys and ureters: No evidence of obstruction. No visible inflammation. Stomach and bowel: Postprandial stomach without visible mass or ulcer. Normal caliber small bowel enhances normally. Distal colon is decompressed with prominent mucosal enhancement. Appendix: Appendix is not visualized as a discrete structure but there is no inflammation at the cecal base. Intraperitoneal space: No free air. No significant fluid collection. Vasculature: Moderate aortoiliac calcific atherosclerosis without aneurysm. No significant stenosis involves the mesenteric or renal arteries. Heterogeneous aneurysmal change of the portal vein is again demonstrated, and there is a small focus of portal vein mural calcification. Lymph nodes: No enlarged lymph nodes. Urinary bladder: Unremarkable as visualized. Reproductive: Prior hysterectomy. No evidence of vaginal cuff or adnexal mass. Bones/joints: No fracture or destructive lesion. Soft tissues: Unremarkable. CT/CT chest abdpel w/*[id number] IMPRESSION: Moderate centrilobular emphysema with features of mild chronic bronchitis. No acute superimposed airspace disease. IMPRESSION: 1. Exam demonstrates features of distal colitis. No findings of toxic megacolon. 2. There has been slight enlargement a mass in the caudal tip of the right hepatic lobe which may be a hepatic adenoma. Prompt non emergent liver MR may be helpful for further characterization. 3. Unchanged portal venous varix. No evidence of portal venous thrombosis. 4. Premature aortoiliac atherosclerotic change. Correlate with risk factors.
--- NOTE | 2025-01-10 20:26 | ECG_ITS ---
[facility]: [facility]25[facility]10 Pat Name: Latoya Che Department: Room: Gender: Female Data Entry Supervisor: : 1975 Requested By: Fabio Bailey Order Number: [id number] Hankins MD: Karissa Childs M.D. Measurements Intervals Sherman Rate: 69 P: 76 WY: 148 QRS: 78 QRSD: 94 T: 81 QT: 380 QTc: 410 Interpretive Statements SINUS RHYTHM No previous ECG available for comparison Electronically Signed On 01-12-2025 14:11:40 CDT by Karissa Childs M.D. [email or web address]
[2025-01-10] MEDS: iohexol 350 mg/mL 500 mL Btl (per mL) IV (20:45)
[2025-01-10 20:48] LABS: Magnesium 1.8 mg/dL (1.7-2.3)
[2025-01-10] MEDS: lidocaine 1% 5 ML in potassium chloride premix 100 ML 52.5 ML IV (22:06)
[2025-01-11] VITALS: BP 119/77; PULSE 68; RESP 18; O2SAT 95
--- NOTE | 2025-01-11 00:07 | ED_ITS ---
HPI - General Adult 2 General: Chief complaint: General Medical Stated complaint: Dr aguilar Potassium low Time Seen by Provider: 01/10/25 20:05 History of Present Illness: 49-year-old female patient presents to [facility] emergency department stating that her primary care physician told her to come in for potassium as her potassium was low on her labs that was drawn at her PCPs office. Patient states she has been having fatigue tiredness some abdominal pain with nausea. 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 Patient denies any chest pain or shortness of breath. Patient denies any other complaints Related Data Home Medications ?Medication ?Instructions ?Recorded ?Confirmed prednisone 5 mg tablet 3 mg PO DAILY 12/13/2401/10 Previous Rx's ?Medication ?Instructions ?Recorded ondansetron HCl 8 mg tablet See Rx Instructions .Route 08/01/23 .COMPLEX #30 tabs hydroxychloroquine 200 mg tablet See Rx Instructions . Route 02/20/24 .COMPLEX #135 tabs clonazepam 1 mg tablet 1 mg PO BID PRN anxiety #60 tabs 06/14/24 itraconazole 100 mg capsule 200 mg (2 x 100 mg) PO BID #120 07/11/24 caps albuterol sulfate 90 mcg/actuation 2 puff inhalation Q 4H PRN 08/24/24 aerosol inhaler shortness of breath or wheez ing #8.5 grams pantoprazole 40 mg tablet,delayed See Rx Instructions .Route 10/22/24 release .COMPLEX #30 tabs linaclotide 145 mcg capsule 145 mcg PO DAILY 30 days # 30 caps 11/20/24 (Linzess) budesonide 160 mcg-glycopyr 9 See Rx Instructions .Rou te 12/11/24 mcg-formot 4.8 mcg/actuation HFA .COMPLEX #11 grams inhaler (Breztri Aerosphere) eszopiclone 1 mg tablet (Lunesta) 1 mg PO .HS PRN anxi ety #30 tabs 12/13/24 prazosin 2 mg capsule See Rx Instructions .Route 0 12/13/24 .COMPLEX #30 caps propranolol 10 mg tablet 10 mg PO BID #60 tabs ropinirole 0.25 mg tablet See Rx Instructions .Route 0 12/14/24 .COMPLEX #90 tabs cyclobenzaprine 10 mg tablet 10 mg PO TID PRN muscle s pasm 30 01/03/25 days #90 tabs pilocarpine HCl 5 mg tablet See Rx Instructions .Route 01/03/25 .COMPLEX #120 tabs albuterol sulfate 2.5 mg/3 mL 2.5 mg (3 mL) inhalation Q6H #90 mL 01/10/25 (0.083 %) solution for nebulization Allergies Allergy/AdvReac Type Severity Reaction Status Date / Time aspirin Allergy ITP Verified 01/10/25 10:11 clavulanic acid (From Allergy VOMITING Verified 01/10/25 10:11 Augmentin) morphine Allergy ITCHING Verified 01/10/25 10:11 NSAIDS (Non-Steroidal Allergy Unknown Verified 01/10/25 10:11 Anti-Inflamma amoxicillin (From Augmentin) AdvReac VOMITING Verified 01/10/25 10:11 clarithromycin (From Biaxin) AdvReac ITP Verified 01/10/25 10:11 erythromycin base AdvReac ITP Verified 01/10/25 10:11 ibuprofen (From Motrin) AdvReac ITP Verified 01/10/25 10:11 Review of Systems 2 General: Reports: 10 or more systems reviewed and unremarkable except in HPI and below PFSH ED 2 PFSH: Medical History (Updated 01/10/25 @ 18:30 by DEONTE Torres) Hx of bad fall Hypokalemia Adverse effect of metformin Chronic idiopathic constipation Female hypertestosteronemia Pneumonia Shortness of breath Ingrown right greater toenail Dermoid cyst of right ear Sexual dysfunction Hormone disorder Oral thrush Mouth sores Thrush, oral Flu-like symptoms Deviated nasal septum Upper respiratory infection Chronic hoarseness Acute sinus infection Postmenopausal symptoms Ovarian cyst Weight gain, abnormal Alternating constipation and diarrhea Abdominal bloating Breast cancer screening by mammogram Aneurysm of portal vein Simple adnexal cyst greater than 5 cm in diameter in premenopausal patient History of autoimmune thrombocytopenia Degenerative joint disease of spine Tobacco use disorder Psychiatric care Photosensitivity Tinea versicolor COVID-19 virus infection Migraine Vitamin D deficiency Primary Sjogren's syndrome Greater trochanteric pain syndrome of both lower extremities (~03/22/24) Inflammatory arthritis High risk medication use GERD (gastroesophageal reflux disease) Post-traumatic stress disorder, chronic Panic disorder [episodic paroxysmal anxiety] Generalized anxiety disorder Fibromyalgia Sjogren's syndrome with lung involvement Bilateral ovarian cysts Arthritis of both knees Essential hypertension, benign COPD (chronic obstructive pulmonary disease) Surgical History Status post biopsy of skin History of hemorrhoidectomy (~09/2016) History of dilation and curettage (~1993) Done for miscarriage History of cholecystectomy (~2000) open Procedure via a right upper quadrant incision History of appendectomy (~1978) Appendectomy was done at time of colon resection at the age of 13 months old Previous section x 3: 1995, 1999, 2002. History of colon resection (~1978) (Procedure done via a midline infraumbilical incision at the age of 13 months for twisted colon Status post creation of urethral sling by suprapubic approach (~04/07/10) Solyx Single Incision Sling and Cystoscopy. Dr. Butts. [facility] [place]. 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 Ovaries surgically spared. Indication: DUB, LSIL. This was performed in March 2007 Pfannenstiel incision--- used the scar Family History Mother Diabetes Grandmother Colon cancer Maternal, at age 52 Family/Other Stroke Maternal aunt Father Heart disease Denies family history of Ovarian cancer Hyperlipidemia Breast cancer Hypertension Uterine cancer Thyroid disease Social History Smoking and tobacco/nicotine status: current every day tobacco/nicotine user Alcohol intake: current Substance/Drug Use: never Lives independently: Yes Marital status: Do you think of yourself as: Straight/Heterosexual Physical Exam 2 Narrative: EXAM NARRATIVE: GEN: NAD, AOx3, well appearing. HEENT: normocephalic, EOMI, no scleral icterus, hearing grossly normal, moist oral mucosa. CV: rrr, no murmurs, no edema. RESP: nonlabored breathing, LCTAB, but patient reports occasional tightness in the chest in the morning, uses nebulizer. NEURO: no focal deficits. ABD: soft and non tender SKIN: no rashes or lesions noted, but patient reports skin is fragile. bruising and peels easily, possibly due to steroid use. PSYCH: appropriate mood & affect, no SI. Course 2 Vital Signs: Vital signs: Vital Signs Temperature 98.1 F 01/10/25 19:29 Pulse Rate 67 01/10/25 23:00 Respiratory Rate 15 01/10/25 23:00 Blood Pressure 117/66 01/10/25 23:00 Pulse Oximetry 95 01/10/25 23:00 Oxygen Delivery Me thod Room Air 01/10/25 23:00 MDM - General Adult Medical Decision Making 34 yo male patient presents to ER with c/o right samantha jaw pain patient has a surgery scheduled for tuesday for a broken jaw pt states he is only here because he is out of pain meds and cant sleep. Pt has no other complaints and is only here requesting pain meds. CT findings reveal colitis. I will have patient follow up with PCP for recheck and follow up. Potasium 20 meq IV given here in the ER and I will send patient home with po aron,. EKG reveals no t wave abnormality. Pt does have an elevated WBC but is on chronic steroids for RA> Given the WBC and the colitis I will go ahead and treat patient at this time. Patient states she otherwise feels good and wants to go home. Pt does not want admitted for IV potassium andagrees to follow up for recheck of potassium. Lab Data 01/10/25 19:49 01/10/25 19:49 Radiology Impressions Chest/Abdomen/Pelvis CT 01/10/25 20:23 IMPRESSION: Moderate centrilobular emphysema with features of mild chronic bronchitis. No acute superimposed airspace disease. IMPRESSION: 1. Exam demonstrates features of distal colitis. No findings of toxic megacolon. 2. There has been slight enlargement a mass in the caudal tip of the right hepatic lobe which may be a hepatic adenoma. Prompt non emergent liver MR may be helpful for further characterization. 3. Unchanged portal venous varix. No evidence of portal venous thrombosis. 4. Premature aortoiliac atherosclerotic change. Correlate with risk factors. Laboratory Results WBC 17.20 10^3/uL (3.29-11.43) H 01/10/25 19:49 RBC 4.47 10^6/uL (3.85-5.65) 01/10/25 19:49 Hgb 14.30 g/dL (11.27-16.99) 01/10/25 19:49 Hct 41.8 % (36-47) 01/10/25 19:49 MCV 93.5 fl (85-98) 01/10/25 19:49 MCH 32.0 pg (27-33) 01/10/25 19:49 MCHC 34.2 g/dL (30-55) 01/10/25 19:49 RDW 15.1 % (12.1-15.1) 01/10/25 19:49 Plt Count 438 10^3/cmm (157-399) H 01/10/25 19:49 MPV 9.7 fL (7.4-10.4) 01/10/25 19:49 Neut % (Auto) 66.1 % 01/10/25 19:49 Lymph % (Auto) 26.6 % 01/10/25 19:49 Whitman % (Auto) 6.3 % 01/10/25 19:49 Eos % (Auto) 0.3 % 01/10/25 19:49 Baso % (Auto) 0.2 % 01/10/25 19:49 Neut # (Auto) 11.38 10^3/uL (1.8-7.7) H 01/10/25 19:49 Lymph # (Auto) 4.6 10^3/uL (0.8-4.8) 01/10/25 19:49 Whitman # (Auto) 1.1 10^3/uL (0.2-0.9) H 01/10/25 19:49 Eos # (Auto) 0.1 10^3/uL (0.0-0.8) 01/10/25 19:49 Baso # (Auto) 0.0 10^3/uL (0.0-0.1) 01/10/25 19:49 Nucleated RBC % (auto) 0 % 01/10/25 19:49 Nucleated RBCs # 0.0 /100WBC 01/10/25 19:49 Sodium 143 mmol/L (136-145) 01/10/25 19:49 Potassium 2.4 mmol/L (3.5-5.1) L* 01/10/25 19:49 Chloride 100 mmol/L (98-107) 01/10/25 19:49 Carbon Dioxide 26 mmol/L (22-29) 01/10/25 19:49 Anion Gap 19.4 (5-19) H 01/10/25 19:49 BUN 5 mg/dL (6-20) L 01/10/25 19:49 Creatinine 0.8 mg/dL (0.5-0.9) 01/10/25 19:49 GFR Calculation 76.9 mL/min (90-130) L 01/10/25 19:49 Glucose 122 mg/dL (65-115) H 01/10/25 19:49 Calculated Osmolality 295 mOsm/kg (285-295) 01/10/25 19:49 Calcium 9.3 mg/dL (8.5-10.5) 01/10/25 19:49 Magnesium 1.8 mg/dL (1.7-2.3) 01/10/25 19:49 Total Bilirubin 0.5 mg/dL (0.15-1.2) 01/10/25 19:49 AST 12 U/L (0-32) 01/10/25 19:49 ALT 12 U/L (0-33) 01/10/25 19:49 Alkaline Phosphatase 69 U/L (35-105) 01/10/25 19:49 Total Protein 6.7 g/dL (6.6-8.7) 01/10/25 19:49 Albumin 4.1 g/dL (3.5-5.2) 01/10/25 19:49 Globulin 2.6 g/dL (1.3-4.6) 01/10/25 19:49 All radiology interpretation(s) finalized by discharge Discharge Plan Discharge Condition: Stable Prescriptions: No Action clonazepam 1 mg tablet 1 mg PO BID PRN (Reason: anxiety) Qty: 60 2RF albuterol sulfate 2.5 mg /3 mL (0.083 %) solution for nebulization 2.5 mg inhalation Q6H Qty: 90 5RF hydroxychloroquine 200 mg tablet See Rx Instructions .ROUTE .COMPLEX Qty: 135 1RF Dose Instruction: ALTERNATE TAKING 1 TABLET BY MOUTH TODAY, THEN 2 TABLETS TOMORROW Rx Instructions: ALTERNATE TAKING 1 TABLET BY MOUTH TODAY, THEN 2 TABLETS TOMORROW itraconazole 100 mg capsule 200 mg PO BID Qty: 120 0RF prednisone 5 mg tablet 3 mg PO DAILY propranolol 10 mg tablet 10 mg PO BID Qty: 60 2RF eszopiclone [Lunesta] 1 mg tablet 1 mg PO .HS PRN (Reason: anxiety) Qty: 30 2RF prazosin 2 mg capsule See Rx Instructions .ROUTE .COMPLEX Qty: 30 2RF Dose Instruction: Take 1 capsule by mouth at bedtime Rx Instructions: Take 1 capsule by mouth at bedtime Linzess 145 mcg capsule 145 mcg PO DAILY 30 Days Qty: 30 1RF ondansetron HCl 8 mg tablet See Rx Instructions .ROUTE .COMPLEX Qty: 30 0RF Dose Instruction: TAKE 1 TABLET BY MOUTH EVERY 8 HOURS NEEDED FOR NAUSEA AND VOMITING Rx Instructions: TAKE 1 TABLET BY MOUTH EVERY 8 HOURS NEEDED FOR NAUSEA AND VOMITING albuterol sulfate 90 mcg/actuation HFA aerosol inhaler 2 puff inhalation Q4H PRN (Reason: shortness of breath or wheezing) Qty: 8.5 6RF pantoprazole 40 mg tablet,delayed release (DR/EC) See Rx Instructions .ROUTE .COMPLEX Qty: 30 5RF Dose Instruction: TAKE 1 TABLET BY MOUTH IN THE MORNING Rx Instructions: TAKE 1 TABLET BY MOUTH IN THE MORNING Breztri Aerosphere 160-9-4.8 mcg/actuation HFA aerosol inhaler See Rx Instructions .ROUTE .COMPLEX Qty: 11 0RF Dose Instruction: INHALE 2 PUFFS TWICE DAILY Rx Instructions: INHALE 2 PUFFS TWICE DAILY ropinirole 0.25 mg tablet See Rx Instructions .ROUTE .COMPLEX Qty: 90 0RF Dose Instruction: TAKE 3 TABLETS BY MOUTH AT BEDTIME Rx Instructions: TAKE 3 TABLETS BY MOUTH AT BEDTIME pilocarpine HCl 5 mg tablet See Rx Instructions .ROUTE .COMPLEX Qty: 120 0RF Dose Instruction: Take 1 tablet by mouth 4 times daily Rx Instructions: Take 1 tablet by mouth 4 times daily cyclobenzaprine 10 mg tablet 10 mg PO TID PRN (Reason: muscle spasm) 30 Days Qty: 90 0RF Referrals: JIM Ovalles, NURSE PRACTITIONER PER DIEM [Primary Care Provider, Family Practice] Print Language: Lao Coding Level of Care Code ED Telecommunications Specialist for Noe Wilcox
[2025-01-11 00:28] VITALS: BP 133/84; PULSE 66; RESP 16; O2SAT 95
== END 2025-01-11 00:24 | disposition home or self-care (01) ==
PROVIDERS: Student in an Organized Health Care Education/Training Program; Emergency Provider Registered Nurse; PCP Nurse Practitioner Family
DX: E87.6 Hypokalemia (principal); K52.9 Noninfective gastroenteritis and colitis, unspecified; Z72.0 Tobacco use; J44.9 Chronic obstructive pulmonary disease, unspecified; I10 Essential (primary) hypertension
CPT/HCPCS: 36415; 71260; 74177; 80053; 80061; 81003; 82306; 82607; 82728; 82746; 83036; 83550; 83735; 84443; 85025; 93005; 96365; 96366; 99285; J3480; J9999

== ENCOUNTER → 2025-01-17 10:33 | Outpatient (BNVA) | payer MEDICARE, MEDICAID, SELFPAY | PROVIDERS: PCP Nurse Practitioner Family; Visit Provider Nurse Practitioner Family | DX: E87.6 Hypokalemia (principal); R79.89 Other specified abnormal findings of blood chemistry; D52.9 Folate deficiency anemia, unspecified | CPT/HCPCS: 80053; 82607; 83735; 85025 ==

== ENCOUNTER 2025-01-18 12:25 | Outpatient (CLI) | payer MEDICARE, MEDICAID, SELFPAY ==
--- NOTE | 2025-01-18 13:00 | CTR_ITS ---
PROCEDURE INFORMATION: Exam: CT Chest With Contrast; Diagnostic Exam date and time: 01/18/2025 12:57 PM Age: 49 years old Clinical indication: Condition or disease; Other: Sjogren syndrome with lung involvement; Prior surgery; Surgery date: 6+ months; Surgery type: Gb, spleen; Additional info: M35.02 - sjogren syndrome with lung involvement TECHNIQUE: Imaging protocol: Diagnostic computed tomography of the chest with contrast. Radiation optimization: All CT scans at this facility use at least one of these dose optimization techniques: automated exposure control; mA and/or kV adjustment per patient size (includes targeted exams where dose is matched to clinical indication); or iterative reconstruction. Contrast material: OMNI 350; Contrast volume: 100 ml; Contrast route: INTRAVENOUS (IV); COMPARISON: CT chest abdpel w/*[id number] 01/10/2025 8:39 PM RADIATION DOSE METRICS: Total DLP (mGy-cm): 255.59 FINDINGS: Lungs: There is moderate upper lung predominant centrilobular emphysema. There is no consolidation. Trachea and bronchi are unremarkable. Pleural spaces: There is no pleural effusion or pneumothorax. Heart: Heart size is normal. There is no pericardial effusion. Lymph nodes: There is no mediastinal or hilar lymphadenopathy. Vasculature: There is mild aortic atherosclerotic disease. Pulmonary arteries are unremarkable. Spleen: The spleen is absent. Bones/joints: Bones are unremarkable. Soft tissues: The extrathoracic soft tissues are unremarkable. CT/CT chest w con* [id number] IMPRESSION: Moderate upper lung predominant centrilobular emphysema, similar to findings on 06/23/2023. No sign of acute lung disease.
[2025-01-18] MEDS: iohexol 350 mg/mL 500 mL Btl (per mL) IV (13:10)
== END 2025-01-18 12:26 | disposition home or self-care (01) ==
LOC: RAD 12:27
PROVIDERS: PCP Nurse Practitioner Family; Visit Provider Nurse Practitioner Family
DX: M35.02 Sjogren syndrome with lung involvement (principal); J43.2 Centrilobular emphysema
CPT/HCPCS: 71260

== ENCOUNTER → 2025-01-21 09:26 | Outpatient (BNVA) | payer MEDICARE, MEDICAID, SELFPAY | PROVIDERS: PCP Nurse Practitioner Family; Visit Provider Nurse Practitioner Family | DX: E87.6 Hypokalemia (principal) | CPT/HCPCS: 80053 ==

== ENCOUNTER → 2025-02-06 15:07 | Outpatient (BNVA) | payer MEDICARE, MEDICAID, SELFPAY | PROVIDERS: PCP Nurse Practitioner Family; Visit Provider Emergency Medicine | DX: E87.6 Hypokalemia (principal) | CPT/HCPCS: 80053; 82607; 83735 ==

== ENCOUNTER → 2025-03-11 15:17 | Outpatient (BNVA) | payer MEDICARE, MEDICAID, SELFPAY | PROVIDERS: PCP Nurse Practitioner Family; Visit Provider Nurse Practitioner Family | DX: L81.8 Other specified disorders of pigmentation (principal); L81.4 Other melanin hyperpigmentation; L57.8 Other skin changes due to chronic exposure to nonionizing radiation; D22.5 Melanocytic nevi of trunk; L82.0 Inflamed seborrheic keratosis; Z78.9 Other specified health status; R20.8 Other disturbances of skin sensation; L53.8 Other specified erythematous conditions | CPT/HCPCS: 17110; 99213 ==

== ENCOUNTER → 2025-03-26 10:41 | Outpatient (BNVA) | payer MEDICARE, MEDICAID, SELFPAY | PROVIDERS: PCP Nurse Practitioner Family; Visit Provider Nurse Practitioner Family | DX: S46.911A Strain of unspecified muscle, fascia and tendon at shoulder and upper arm level, right arm, initial encounter (principal); S56.911A Strain of unspecified muscles, fascia and tendons at forearm level, right arm, initial encounter; W19.XXXA Unspecified fall, initial encounter | CPT/HCPCS: 73030; 73080 ==

== ENCOUNTER → 2025-04-02 10:41 | Outpatient (BNVA) | payer MEDICARE, SELFPAY | PROVIDERS: PCP Nurse Practitioner Family; Visit Provider Nurse Practitioner Family | DX: E87.6 Hypokalemia (principal); R06.02 Shortness of breath | CPT/HCPCS: 80053; 83880 ==

== ENCOUNTER → 2025-04-09 10:02 | Outpatient (BNVA) | payer MEDICARE, SELFPAY | PROVIDERS: PCP Nurse Practitioner Family; Visit Provider Internal Medicine | DX: J44.89 Other specified chronic obstructive pulmonary disease (principal); B39.9 Histoplasmosis, unspecified; J43.9 Emphysema, unspecified; D69.3 Immune thrombocytopenic purpura; M35.00 Sjogren syndrome, unspecified; F43.10 Post-traumatic stress disorder, unspecified; Z71.6 Tobacco abuse counseling; F17.210 Nicotine dependence, cigarettes, uncomplicated; T78.40XA Allergy, unspecified, initial encounter; X58.XXXA Exposure to other specified factors, initial encounter; J44.9 Chronic obstructive pulmonary disease, unspecified | CPT/HCPCS: 36415; 80053; 82103; 85025; 86003; 99204; 99406; Q3014 ==

== ENCOUNTER 2025-04-16 13:44 | Oncology outpatient (recurring) (ONCR) | payer MEDICARE, SELFPAY | END 2025-04-26 23:59 | disposition home or self-care (01) | PROVIDERS: PCP Nurse Practitioner Family; Visit Provider Internal Medicine Medical Oncology | DX: R59.1 Generalized enlarged lymph nodes (principal); F17.210 Nicotine dependence, cigarettes, uncomplicated; M35.00 Sjogren syndrome, unspecified; D72.829 Elevated white blood cell count, unspecified; D75.839 Thrombocytosis, unspecified; Z90.81 Acquired absence of spleen | CPT/HCPCS: 99214 ==

== ENCOUNTER → 2025-05-08 11:46 | Outpatient (BNVA) | payer MEDICARE, SELFPAY | PROVIDERS: PCP Nurse Practitioner Family; Visit Provider Family Medicine | DX: E87.6 Hypokalemia (principal) | CPT/HCPCS: 80053 ==

== ENCOUNTER → 2025-06-04 09:54 | Outpatient (BNVA) | payer MEDICARE, SELFPAY | PROVIDERS: PCP Nurse Practitioner Family; Visit Provider Internal Medicine | DX: J44.89 Other specified chronic obstructive pulmonary disease (principal); Z71.6 Tobacco abuse counseling; J43.9 Emphysema, unspecified; D69.3 Immune thrombocytopenic purpura; F17.210 Nicotine dependence, cigarettes, uncomplicated | CPT/HCPCS: 36415; 80053; 80061; 81001; 82103; 82150; 82607; 83690; 83880; 83921; 84443; 85025; 99214; Q3014 ==